=== PATIENT | female | born 1965 | race Caucasian/White ===

== ENCOUNTER 2016-09-12 14:06 | Inpatient (IN) ==
--- NOTE | 2016-09-12 14:32 | Emergency Department Note ---
Female Urogenital HPI - General Chief complaint: Urogenital-Female Stated complaint: uti, weakness Time Seen by Provider: 09/12/16 14:23 Source: patient Mode of arrival: ambulatory Limitations: no limitations - History of Present Illness HPI Narrative: This patient was seen earlier today by Dr. Peter for weakness altered mental status and diagnosed with a UTI. She was discharged on Cipro. Within several hours she was falling down and we can evident that she has not make it at home. She now returns to the emergency room by ambulance, she is quite morbidly obese and cannot manage her with her weight. - Related Data Home Medications Medication Instructions Recorded Confirmed cyclobenzaprine 10 mg tablet 10 mg PO TID 08/07/15 09/12/16 gabapentin 800 mg tablet 800 mg PO QID tab 08/07/15 09/12/16 hydrocodone 10 mg-acetaminophen 1 tab PO QID 08/07/15 09/12/16 325 mg tablet mirtazapine 15 mg tablet 15 mg PO QHS 08/07/15 09/12/16 celecoxib 200 mg capsule 200 mg PO BID 30 Days 10/02/15 09/12/16 duloxetine 60 mg capsule,delayed 60 mg PO BID cap 10/02/15 09/12/16 release hydrocortisone 5 mg tablet 10 mg PO .COMPLEX 01/08/16 09/12/16 morphine ER 30 mg tablet,extended 30 mg PO TID tab 04/22/16 09/12/16 release cholecalciferol (vitamin D3) 5,000 5,000 unit PO QDAY cap 07/08/16 09/12/16 unit capsule pyridoxine (vitamin B6) 100 mg 100 mg PO QDAY tab 07/08/16 09/12/16 tablet Previous Rx's Medication Instructions Recorded nystatin 100,000 unit/gram topical 1 applic TOPICAL TID PRN #120 each 01/01/16 powder metformin ER 500 mg 24 hr 500 mg PO QDAY #60 tab 03/16/16 tablet,extended release canagliflozin 100 mg tablet 100 mg PO QAM #60 tab 04/07/16 cefdinir 300 mg capsule 300 mg PO Q12H 14 Days 07/08/16 doxycycline hyclate 100 mg tablet 100 mg PO BID 14 Days 07/08/16 furosemide 40 mg tablet 40 mg PO QDAY #60 tab 07/08/16 potassium chloride ER 10 mEq 20 meq PO QDAY #120 cap 07/08/16 capsule,extended release valsartan 160 mg tablet 160 mg PO QDAY #60 tab 07/08/16 Ciprofloxacin [Cipro] 250 mg PO BID #20 tablet 09/12/16 Allergies Allergy/AdvReac Type Severity Reaction Status Date / Time Amoxicillin Allergy Severe Rash Verified 09/12/16 19:14 Review of Systems Constitutional: Denies: fever, chills Eyes: Denies: eye pain ENT ED: Denies: ear pain Cardiovascular: Denies: chest pain Respiratory: Reports: cough. Denies: dyspnea Gastrointestinal: Reports: abdominal pain. Denies: nausea, vomiting Genitourinary: Reports: urgency, dysuria, frequency Musculoskeletal: Denies: back pain Integumentary: Denies: rash Neurological: Denies: headache Past Medical History - Past Medical History Medical history: Reports: arthritis, diabetes, fibromyalgia, hypertension, migraine, osteoporosis, thyroid disease, other Surgical history ED: Reports: appendectomy, , cholecystectomy, knee replacement, tonsillectomy, other (resection of liver tumor) Psychiatric history: Reports: anxiety - Social History Alcohol use: Reports: None Physical Exam - General Limitations: no limitations General appearance: alert, in no apparent distress - Head Head exam: atraumatic, normocephalic - Eye Eye exam: Present: normal appearance - ENT ENT exam: normal exam - Neck Neck exam: Present: normal inspection - Chest Chest inspection: Present: normal inspection - Respiratory Respiratory exam: Present: normal lung sounds bilaterally - Cardiovascular Cardiovascular exam: Present: regular rate, normal rhythm, normal heart sounds - Abdominal Exam Abdominal exam: Present: soft, tenderness. Absent: distention, guarding, rebound, rigidity Abdominal tenderness: Present: diffuse, mild - Neurological Exam Neurological exam: Present: alert - Psychiatric Psychiatric exam: Present: normal affect, normal mood - Skin Skin exam: Present: warm, dry, intact Course Vital Signs Pulse Rate 94 H 09/12/16 14:17 Respiratory Rate 22 09/12/16 14:17 Blood Pressure 131/81 09/12/16 14:17 Pulse Oximetry (%) 98 09/12/16 14:17 Temperature 99 F 09/13/16 04:00 Pulse Rate 102 H 09/12/16 16:32 Respiratory Rate 22 09/13/16 04:00 Blood Pressure 133/81 09/13/16 04:00 Pulse Oximetry (%) 97 09/13/16 04:00 Urogenital-Female - MDM Narrative Medical decision making narrative: This patient had an abnormal lumbar puncture. She'll be admitted to the hospital and covered for meningitis. She noted chest x-ray and CT scan from earlier in the morning were negative. - Lab Data Lab results reviewed: Yes I reviewed the patient's lab results. Result diagrams: 09/13/16 00:01 09/13/16 00:01 Lab Results 09/12/16 09/12/16 09/12/16 Range/Units 15:04 15:04 15:04 ESR 95 H (0-20) mm/hr VBG Lactic Acid 1.5 (0.5-2.2) mmol/L C-Reactive Protein 35.6 H (0.0-0.8) mg/dl CSF Source CSF Appearance CSF Color CSF RBC (0-1) /cumm CSF Diff Total Count CSF Total Nucleated Auto (0-5) /cumm CSF Neutrophils (0-6) % CSF Lymphocytes (40-80) % CSF Reactive Lymphs CSF Monocytes (15-45) % CSF Eosinophils % CSF Basophils CSF Macrophages % CSF Plasma Cells CSF Diff Comment CSF Glucose (45-75) mg/dL CSF Total Protein (15.0-45) mg/dL 09/12/16 09/12/16 09/12/16 Range/Units 17:49 17:49 17:49 ESR (0-20) mm/hr VBG Lactic Acid (0.5-2.2) mmol/L C-Reactive Protein (0.0-0.8) mg/dl CSF Source Tube #3 TNP CSF Appearance Hazy Not Reportable CSF Color Xanthochromic Not Reportable CSF RBC 730 H Not Reportable (0-1) /cumm CSF Diff Total Count 100 Not Reportable CSF Total Nucleated Auto 148 H Not Reportable (0-5) /cumm CSF Neutrophils 68 H Not Reportable (0-6) % CSF Lymphocytes 16 L Not Reportable (40-80) % CSF Reactive Lymphs Not Reportable Not Reportable CSF Monocytes 15 Not Reportable (15-45) % CSF Eosinophils % Not Reportable Not Reportable CSF Basophils Not Reportable Not Reportable CSF Macrophages 1 Not Reportable % CSF Plasma Cells Not Reportable Not Reportable CSF Diff Comment Not Reportable Not Reportable CSF Glucose 97 H Not Reportable (45-75) mg/dL CSF Total Protein 933 H Not Reportable (15.0-45) mg/dL Disposition Clinical Impression: Urinary tract infection, Meningitis Disposition: Xfer As Inpt ([facility]) Condition: Undetermined
[2016-09-12] MEDS: HYDROmorphone 2 MG/ML SYRINGE IV PRN ×2 (16:00→16:49)
[2016-09-12] MEDS ORDERED: VANCOMYCIN 1,000 MG in 0.9 % SODIUM CHLORIDE 250 ML IV ONE (16:07)
[2016-09-12] MEDS ORDERED: LEVOFLOXACIN 500 MG/100 ML BAG IV ONE (16:07)
[2016-09-12] MEDS ORDERED: 0.9 % SODIUM CHLORIDE 1,000 ML IV SCH (16:15)
[2016-09-12] MEDS: 0.9 % SODIUM CHLORIDE 1,000 ML IV SCH (18:00)
[2016-09-12] MEDS ORDERED: DEXAMETHASONE 4 MG/ML VIAL IV ONE (18:01)
[2016-09-12] MEDS ORDERED: ONDANSETRON 4 MG/2 ML VIAL IV PRN (18:01)
[2016-09-12] MEDS ORDERED: VANCOMYCIN PER PHARMACY IV SCH (18:01)
[2016-09-12] MEDS ORDERED: POTASSIUM CHLORIDE 20 MEQ PACKET PO PRN (18:01)
[2016-09-12] MEDS ORDERED: MAGNESIUM SULFATE 2 GM/50 ML BAG IV PRN (18:01)
[2016-09-12] MEDS ORDERED: NYSTATIN POWDER BOTTLE 15GM TOPICAL PRN (18:01)
[2016-09-12] MEDS ORDERED: ACETAMINOPHEN 325 MG TABLET PO PRN (18:01)
[2016-09-12] MEDS ORDERED: AMPICILLIN SODIUM 2 GM VIAL IV SCH (18:01)
[2016-09-12] MEDS ORDERED: ACETAMINOPHEN 1,000 MG/100 ML BOTTLE IV PRN (18:01)
[2016-09-12] MEDS ORDERED: DEXTROSE 50% 50 ML VIAL IV PRN (18:01)
--- NOTE | 2016-09-12 18:19 | XRay Report ---
CLINICAL INFORMATION: Confusion. Possible encephalitis. TECHNIQUE: Informed consent was obtained. Routine Betadine skin cleansing. 1% lidocaine injected subcutaneously and deep. An 18-gauge, 6 inch spinal needle utilized. Lumbar puncture performed at the L1-L2 level. 5 mL yellowish fluid was removed. No immediate complications. IMPRESSION: 1. Lumbar puncture performed at the L1-L2 level 2. 5 mL of yellow-tinged fluid removed. Interpreted and Authenticated by: Farshad Lu 09/12/16
[2016-09-12 19:15] LABS: Glucose,CSF 97 mg/dL (45-75)
[2016-09-12] MEDS ORDERED: VANCOMYCIN 2,000 MG in 0.9 % SODIUM CHLORIDE 500 ML IV ONE (20:00)
[2016-09-12] MEDS ORDERED: VANCOMYCIN 500 MG VIAL ONE (20:18)
[2016-09-12] MEDS: INSULIN LISPRO 1 UNIT/0.01 ML UNIT SQ SCH ×2 (20:32→22:10)
[2016-09-12] MEDS: DOCUSATE SODIUM 100 MG CAPSULE PO SCH (20:34)
[2016-09-12] MEDS: SENNOSIDES/DOCUSATE SODIUM 1 TAB TABLET PO SCH (20:34)
[2016-09-12] MEDS: DULoxetine 30 MG CAPSULE PO SCH (20:34)
[2016-09-12] MEDS: MIRTAZAPINE 15 MG TABLET PO SCH (20:35)
[2016-09-12] MEDS: morphine 30 MG TAB.SR.12H PO SCH (20:35)
[2016-09-12] MEDS: 0.9 % SODIUM CHLORIDE 10 ML SYRINGE IV SCH (20:35)
[2016-09-12 20:57] LABS: Lymphocytes,CSF 16 % (40-80); Monocytes,CSF 15 % (15-45); Neutrophils,CSF 68 % (0-6); Total Cell Ct,CSF 100
[2016-09-12 21:03] LABS: Appearance,CSF HAZY; Nucleated Cells,CSF 148 /cumm (0-5); Red Blood Cell,CSF 730 /cumm (0-1)
[2016-09-12] MEDS: ACYCLOVIR SODIUM 800 MG in 0.9 % SODIUM CHLORIDE 150 ML IV SCH (21:05)
[2016-09-12] MEDS: cefTRIAXone 2 GM in DEXTROSE 5% IN WATER 50 ML IV SCH (21:30)
[2016-09-12] MEDS ORDERED: ACYCLOVIR SODIUM 500 MG VIAL IV SCH (22:00)
[2016-09-12] MEDS: AMPICILLIN SODIUM 2 GM in 0.9 % SODIUM CHLORIDE 100 ML IV SCH (22:30)
--- NOTE | 2016-09-12 23:28 | History and Physical Report ---
DATE OF ADMISSION: 09/12/2016 DATE OF ADMISSION: 09/12/2016 REASON FOR ADMISSION: Mental status change, weakness, confusion. HISTORY OF CHIEF COMPLAINT: Amber is a 51-year-old who comes to [facility] ER for the second time in 24 hours with significant weakness, headache, neck pain and low grade fever. The patient also has associated urinary frequency; however, she endorses to feeling weak and progressive lethargy and myalgias over the last couple of weeks. She is, however, on multiple sedatives, anxiolytics and neuropathic medications along with opioids that may have predisposed her to her symptoms. Initial workup in the ER was significant for white count of 17,000, along with mild UTI. The patient was subsequently discharged with ciprofloxacin. Shortly thereafter, the patient comes back to the ER with increasing confusion, weakness, fever. Hospitalist Service was consulted for further evaluation. At the time of examination, the patient is accompanied by her . She was able to provide some of the history. She is intermittently confused, but oriented to person and place. She denies diarrhea or dysuria. Does endorse to mild photophobia. Denies nausea, vomiting. She does have a generalized headache that is worse since last 24 hours. She denies back pain, joint pain or rash. REVIEW OF SYSTEMS: Ten-point review of system was performed and negative except the ones discussed above. PAST MEDICAL HISTORY: 1. Anxiety disorder. 2. Chronic degenerative joint disease along with pain. 3. Neuropathy. 4. Diabetes mellitus type 2. 5. Morbid obesity. 6. Hypertension. CURRENT MEDICATIONS: Cipro 250. Losartan 160. Furosemide 40. Cefdinir 300. Canagliflozin 100. Metformin 500. Nystatin for local application. Loxitane 100. Liraglutide 1.8 subcutaneous daily. Morphine 30 three times a day. Hydrocortisone 10 daily. Duloxetine 60 twice daily. Mirtazapine 15 at bedtime Hydrocodone 10/325 one tab 4 times a day. Gabapentin 800 three times a day. Cyclobenzaprine 10 three times a day. ALLERGIES: Noted to AMOXICILLIN. SOCIAL HISTORY: The patient is . No history of smoking or alcoholism. Morbidly obese. Her primary care physician: Robson Day MD FAMILY HISTORY: Significant for diabetes, hypertension and CVA in mother. Hypertension and dementia in father. Cousin, myocardial infarction. PHYSICAL EXAMINATION: GENERAL EXAM: The patient is morbidly obese with BMI of 55, nondistressed, but confused. VITAL SIGNS: Blood pressure is 136/116, respiratory rate 16, temperature 100.7, pulse 102. Saturations 100 percent on room air. HEENT: Pupils symmetric. Oral cavity dry. No ear or nose discharge. Head: Normocephalic and atraumatic. NECK: Stiffness. Positive along with Kernig's sign. No jugular venous distention. CHEST: S1, S2 regular rhythm, tachycardia. ESM grade 1. Diminished breath sounds at bases. ABDOMEN: Soft, nontender. Pendulous, extensive pannus. LOWER EXTREMITY EXAMINATION: Stasis changes along with minimal lymphedema, but no cyanosis or clubbing. No joint swelling. SKIN: No suspicious lesions. PSYCHIATRIC: Intermittently confused but no agitation or hallucination. NEURO: Nonfocal, moving all four extremities except for higher functions altered. LABS AND IMAGING: White count 17.1, hemoglobin 13.5, platelets 437, neutrophils 80 percent. Lactic acid 1.5. Sodium 130, potassium 3.7, creatinine 1.9, BUN 35. CRP 35. LFTs unremarkable. UA: 10 WBCs along with a few bacteria. Culture is pending. CSF: Total cells 148 and neutrophils 68 percent Cultures pending. HSV DNA pending. Proteins 933. Glucose 97. ASSESSMENT AND PLAN: A 51-year-old admitted with acute mental status change along with pyogenic meningitis. 1. Acute bacterial meningitis with mental status change and ikely encephalitis. Start the patient on empiric vancomycin, Rocephin, dexamethasone, and ampicillin until cultures are obtained. The patient is a high risk mortality with cerebrospinal fluid finding consistent with bacterial meningitis. Admit to inpatient telemetry for close monitoring and neuro checks. 2. Sepsis secondary to above. Continue antibiotic coverage. 3. Acute renal failure, secondary to sepsis. Continue monitoring. Continue crystalloids and consult Nephrology if deteriorating. 4. Other prior medical issues, including diabetes mellitus type 2. Continue basal prandial insulin. 5. Hypertension. Hold angiotensin receptor bhavin until systolics over 140. 6. Chronic pain. Continue as needed morphine at home dose. 7. Anxiety disorder. Continue on loxitane. 8. Neuropathy. Continue gabapentin. Overall very high complexity admit on this patient with acute bacterial meningitis with encephalitis. AA:aquilino Job ID: [id number] Doc ID: [id number] Lonnie ESCUDERO
[2016-09-13 00:52] LABS: Mean Cell Volume 83.9 fL (80.0-100.0); Mean Corpuscular HGB Conc 32.7 g/dL (31.0-36.0); Mean Corpuscular Hemoglobin 27.4 pg (26.0-34.0); Platelet Count 397 K/mcL (140-440); RBC 4.53 M/mcL (4.00-5.20); Red Cell Distribution Width 16.5 % (11.5-14.5)
[2016-09-13 01:08] LABS: ALT/SGPT 43 U/l (0-40); Albumin 3.4 gm/dL (3.2-5.2); Albumin/Globulin Ratio 0.9 (1.0-2.3); Alkaline Phosphatase 114 U/L (39-117); Bilirubin,Direct 0.3 mg/dL (0.0-0.3); Blood Urea Nitrogen 17 mg/dl (6-20); Gamma Glutamyl Transpeptidase 208 U/L (5-36); Magnesium 2.4 mg/dL (1.6-2.5); Uric Acid 7.2 mg/dL (2.5-8.0)
[2016-09-13 01:44] LABS: Anisocytosis 1+ (NONE SEEN); Band Neutrophils % 5 % (0-10); Lymphocytes % 8 % (15-49); Monocytes % (Manual) 8 % (1-12); Platelet Estimate NORMAL (NORMAL); RBC Morphology ABNORM (NORMAL); Segmented Neutrophils % 79 % (38-78)
[2016-09-13] MEDS: 0.9 % SODIUM CHLORIDE 1,000 ML IV SCH ×3 (02:27→17:40)
[2016-09-13] MEDS: AMPICILLIN SODIUM 2 GM in 0.9 % SODIUM CHLORIDE 100 ML IV SCH ×5 (02:28→21:23)
[2016-09-13] MEDS: ACYCLOVIR SODIUM 800 MG in 0.9 % SODIUM CHLORIDE 150 ML IV SCH ×3 (05:00→22:12)
[2016-09-13] MEDS: 0.9 % SODIUM CHLORIDE 10 ML SYRINGE IV SCH ×3 (07:10→21:22)
[2016-09-13] MEDS: INSULIN LISPRO 1 UNIT/0.01 ML UNIT SQ SCH ×5 (08:39→21:22)
[2016-09-13] MEDS: morphine 30 MG TAB.SR.12H PO SCH ×2 (08:58→20:38)
[2016-09-13] MEDS: MULTIVIT,THER IRON,CA,FA & MIN 1 TABLET PO SCH (08:58)
[2016-09-13] MEDS: DOCUSATE SODIUM 100 MG CAPSULE PO SCH ×2 (08:58→21:23)
[2016-09-13] MEDS: LOSARTAN 50 MG TABLET PO SCH (08:58)
[2016-09-13] MEDS: DULoxetine 30 MG CAPSULE PO SCH ×2 (08:58→20:37)
[2016-09-13] MEDS: POTASSIUM CHLORIDE 20 MEQ TABLET PO SCH (08:59)
[2016-09-13] MEDS ORDERED: THIAMINE 100 MG in 0.9 % SODIUM CHLORIDE 50 ML IV SCH (09:00)
[2016-09-13] MEDS: VANCOMYCIN 1,500 MG in 0.9 % SODIUM CHLORIDE 500 ML IV SCH ×2 (09:00→21:22)
[2016-09-13] MEDS: HYDROCORTISONE 10 MG TABLET PO SCH (09:05)
--- NOTE | 2016-09-13 10:54 | Internal Med Progress Note ---
Medical - PN: Subj Patient information: Note initiated : 09/13/16 at 10:49 am Service Date, if different from initiated Date: [] Patient: Amber Weiss 51 y/o F admitted on 09/12/16 for Mental Status Change , Pyogenic Meningitis. Chief Complaint: [] Interval history: 09/12- patient admitted with mental status changes photophobia headache and fever progressing over the last few days. She has been intermittently treated for no S3 cellulitis with Ceftin ear since March. However she clinically deteriorated with active hallucinations and confusion prompting her to be evaluated to [facility] ER. initial workup was significant for white count at 17, 000. She was diagnosed with UTI and discharged but shortly thereafter returned with worsening mental status change. CSF studies revealed 148 WBCs with neutrophil predominance and 933 protein clearly service to above bacterial meningitis/encephalitis. Started on Rocephin/ampicillin/vancomycin/acyclovir. Neuro imaging to rule out brain abscess. At this time will empirically start her on anaerobic coverage with Flagyl until neuroimaging to be performed. 09/13- patient clinically better with resolution of hallucination and back to baseline. More lucid and alert. at bedside. Case discussed with family. MRI not amenable due to patient's body habitus. We'll perform CT contrast head to rule out brain abscess/ hemorrhage. De-escalate antibiotics based on Gram stain. So far negative. continue empiric treatment. - Constitutional Vitals: Vital Signs Temp Pulse Resp BP Pulse Ox 96.7 F L 86 18 134/86 97 09/13/16 10:02 09/13/16 08:00 09/13/16 08:00 09/13/16 08:00 09/13/16 08:00 Period Temp Pulse Resp BP Sys/Schultz Pulse Ox Last 24 Hr 96.7 F-100.7 F 86 18-96 111-156/61-119 92-100 Intake and Output 09/12/16 09/13/16 09/13/16 21:59 05:59 13:59 Intake Total 554 / 554 2296 / 2296 200 / 200 Output Total 3400 / 3400 Balance 554 / -1046 -1104 / -1104 200 / 200 Weight 357 lb 11 oz Intake & Output: Intake & Output 09/12/16 09/13/16 09/13/16 21:59 05:59 13:59 Intake Total 554 / 554 2296 / 2296 200 / 200 Output Total 3400 / 3400 Balance 554 / -1046 -1104 / -1104 200 / 200 Weight 357 lb 11 oz Intake: IV 554 / 554 2046 / 2046 200 / 200 Sodium Chloride 0.9% 1, 354 / 354 1646 / 1646 000 ml @ Wide Open IV [facility] Rx#:[id number] Zovirax 800 mg In Sodium 150 / 150 100 / 100 Chloride 0.9% 150 ml @ 100 mls/hr IV Q8H [facility] Rx# :[id number] Ampicillin 2 gm In Sodium 200 / 200 100 / 100 Chloride 0.9% 100 ml @ 100 mls/hr IV Q4H [facility] Rx# :[id number] Rocephin 2 gm In Dextrose 50 / 50 5% in Water 50 ml @ 100 mls/hr IV DAILY [facility] Rx#: [id number] Oral 250 / 250 Output: Urine Catheter Amount 3400 / 3400 General appearance: cooperative, no acute distress Exam: morbidly obese alert oriented nonlabored breathing Improved photophobia No anxiety Medical - PN: Obj Da - Labs CBC & Chem 7: 09/13/16 00:01 09/13/16 00:01 Labs: Abnormal Lab Results 09/13/16 09/13/16 00:01 00:01 WBC 15.5 H RDW 16.5 H Seg Neutrophils % 79 H Lymphocytes % 8 L RBC Morphology Abnorm A Anisocytosis 1+ A Chloride 95 L Glucose 174 H GGT 208 H AST 43 H ALT 43 H Lactate Dehydrogenase 276 H Globulin 3.9 H Albumin/Globulin Ratio 0.9 L Meds: Medications Acetaminophen (Tylenol) 650 mg PO Q4-6HP PRN PRN Reason: PAIN/FEVER > 101 Last Admin: 09/13/16 04:59 Dose: 650 mg Dextrose (Dextrose 50%) 0 ml IV UD PRN PRN Reason: Hypoglycemia Diagnostic Test (Pha) (Accu-Chek) 1 each FS ACHS [facility] Last Admin: 09/13/16 07:58 Dose: 1 each Docusate Sodium (Colace) 100 mg PO BID [facility] Last Admin: 09/13/16 08:58 Dose: 100 mg Duloxetine HCl (Cymbalta) 60 mg PO BID [facility] Last Admin: 09/13/16 08:58 Dose: 60 mg Hydrocortisone (Cortef) 10 mg PO QAMCC [facility] Last Admin: 09/13/16 09:05 Dose: 10 mg [facility] (C[facility]ef) [facility] Magnesium Sulfate (Magnesium Sulfate) 2 gm in 50 mls @ 50 mls/hr IV UD PRN PRN Reason: MG = or < 1.7 Sodium Chloride (Sodium Chloride 0.9%) 1,000 mls @ 50 mls/hr IV .Q20H [facility] Stop: 09/15/16 06:00 Last Admin: 09/13/16 02:27 Dose: 50 mls/hr Sodium Chloride (Sodium Chloride 0.9%) 1,000 mls @ 0 mls/hr IV BOLUS [facility] PRN Reason: Wide Open Last Infusion: 09/13/16 02:26 Dose: Infused Acetaminophen (Ofirmev) 1,000 mg in 100 mls @ 200 mls/hr IV Q6HP PRN PRN Reason: PAIN/FEVER > 101 Last Infusion: 09/12/16 21:56 Dose: Infused Thiamine HCl 100 mg/ Sodium (Chloride) 51 mls @ 50 mls/hr IV DAILY [facility] Stop: 09/15/16 10:02 Last Admin: 09/13/16 09:01 Dose: 50 mls/hr Ceftriaxone Sodium 2 gm/ (Dextrose) 50 mls @ 100 mls/hr IV DAILY [facility] Last Infusion: 09/12/16 23:48 Dose: Infused Acyclovir Sodium 800 mg/ (Sodium Chloride) 150 mls @ 100 mls/hr IV Q8H [facility] Last Infusion: 09/13/16 06:00 Dose: 0 mls/hr Ampicillin Sodium 2 gm/ Sodium (Chloride) 100 mls @ 100 mls/hr IV Q4H [facility] Last Infusion: 09/13/16 08:07 Dose: Infused Vancomycin HCl 1,500 mg/ (Sodium Chloride) 500 mls @ 333.3 mls/hr IV Q12H [facility] Last Admin: 09/13/16 09:00 Dose: 333.3 mls/hr Insulin Human Lispro (Humalog) 0 unit SQ ACHS [facility] PRN Reason: Protocol Last Admin: 09/13/16 08:39 Dose: Not Given Iron Carb/Multivit/[place]/Folic Acid (Multivitamin W/Minerals) 1 tab PO DAILY [facility] Last Admin: 05/15/17 08:58 Dose: 1 tab Losartan Potassium (Cozaar) 100 mg PO DAILY [facility] Last Admin: 09/13/16 08:58 Dose: 100 mg Mirtazapine (Remeron) 15 mg PO QHS [facility] Last Admin: 09/12/16 20:35 Dose: 15 mg Morphine Sulfate (Ms Contin) 30 mg PO BID [facility] Last Admin: 09/13/16 08:58 Dose: 30 mg Nystatin (Kenalog) 1 dose TOPICAL TIDP PRN PRN Reason: candidiasis Ondansetron HCl (Zofran) 4 mg IV Q4-6HP PRN PRN Reason: Nausea And Vomiting Canagliflozin [ Invokana] 100 Mg Tablet 1 dose PO QAM [facility] Last Admin: 09/13/16 09:22 Dose: 1 dose Potassium Chloride (Klor-Con) 40 meq PO DAILYP PRN PRN Reason: K+ < 3.5 Potassium Chloride (Kdur) 20 meq PO QAMCC [facility] Last Admin: 09/13/16 08:59 Dose: 20 meq Senna/Docusate Sodium (Senna Plus Tablet) 1 tab PO HS [facility] Last Admin: 09/12/16 20:34 Dose: 1 tab Sodium Chloride (Saline Flush) 10 ml IV Q8 [facility] Last Admin: 09/13/16 07:10 Dose: Not Given Vancomycin HCl (Vancomycin Per Pharmacy) 1 order IV UD [facility] Medical - PN: A/P - Time Spent With Patient Total time spent is greater than 50% in coordination of care (as documented) at patient's floor/unit and/or counseling patient: 25 - 35 minutes (1) Acute bacterial meningitis Status: Acute Assessment and plan: * Acute bacterial meningitis with likely encephalitis-continue broad antibiotic coverage. PICC line placement for minimum 14 days antibiotics. Start Flagyl for anaerobic coverage in light of mental status change and encephalitis symptoms. await CT contrast had * Severe sepsis secondary to above-on antibiotic coverage * lower extremity cellulitis-Continue antibiotic coverage, wound care consult * DM type II basal prandial insulin * Chronic pain on morphine/Hydrocodone * anxiety disorder mirtazapine/ duloxetine * neuropathy restart gabapentin\ * full code status Plan * continue antibiotic coverage, add Flagyl for anaerobic coverage * closing management monitoring * CT Headwith contrast * wound care consult * pre-existing medical condition management as above Current Visit: Yes Medical - PN: Qual - Stroke Symptom Onset Unknown: No - VTE Deep Vein Thrombosis/Pulmonary Embolism Present on Admission: No
[2016-09-13] MEDS ORDERED: 0.9 % SODIUM CHLORIDE 10 ML SYRINGE IV PRN (10:55)
[2016-09-13] MEDS: metroNIDAZOLE 500 MG/100 ML BAG IV SCH ×2 (11:12→17:28)
[2016-09-13] MEDS: HYDROcodone/APAP 10/325MG TABLET PO PRN ×3 (11:12→22:21)
[2016-09-13] MEDS ORDERED: IOPAMIDOL 100 ML BOTTLE IV ONE (11:58)
--- NOTE | 2016-09-13 12:07 | Cat Scan Report ---
CLINICAL INFORMATION: Meningitis TECHNIQUE: Axial images through the brain. 60 mL contrast material injected. COMPARISON: Noncontrast enhanced brain CT scan dated 09/12/2016 FINDINGS: Previous occipital craniotomy. No acute intracranial hemorrhage. No intra-axial enhancing lesions. No focal intra-axial attenuation abnormality. No localized mass effect. No hydrocephalus. Brainstem and cerebellum are negative. No pathologic dural or leptomeningeal enhancement identified. Basilar cisterns are normal. No calvarial lesions. Paranasal sinuses are negative. Mastoid air cells are negative. Middle ears are clear. IMPRESSION: Previous occipital craniotomy. Otherwise negative postcontrast enhanced brain CT scan Interpreted and Authenticated by: Farshad Lu 09/13/16
[2016-09-13] MEDS: cefTRIAXone 2 GM in DEXTROSE 5% IN WATER 50 ML IV SCH (14:26)
[2016-09-13] MEDS ORDERED: HYDROCORTISONE 10 MG TABLET PO SCH (17:30)
--- NOTE | 2016-09-13 20:28 | General Surgery Consult Note ---
[id number] Date: [] Patient: Amber Weiss 51 y/o F admitted on 09/12/16 for Mental Status Change , Pyogenic Meningitis. Chief Complaint: [] Consult date: 09/13/16 (WOUND CARE CONSULT, ) Requesting physician: Lonnie Mojica History of present illness: 09/13/2016 Patient is established at the wound center for treatment of Right foot 2 nd toe tip neuropathic ulcer. She is currently admitted to ICU for treatment of complex UTI with possible bacterial meningitis and altered mental status. I reviewed her EHR chart notes, discussed her progress with nursing staff and examined her in the presence of nurse in ICU. Medications and Allergies Home Medications Medication Instructions Recorded Confirmed Type cyclobenzaprine 10 mg tablet 10 mg PO TID 08/07/15 09/12/16 History gabapentin 800 mg tablet 800 mg PO QID tab 08/07/15 09/12/16 History hydrocodone 10 mg-acetaminophen 1 tab PO QID 08/07/15 09/12/16 History 325 mg tablet mirtazapine 15 mg tablet 15 mg PO QHS 08/07/15 09/12/16 History celecoxib 200 mg capsule 200 mg PO BID 30 Days 10/02/15 09/12/16 History duloxetine 60 mg capsule,delayed 60 mg PO BID cap 10/02/15 09/12/16 History release nystatin 100,000 unit/gram topical 1 applic TOPICAL TID PRN #120 each 01/01/16 09/12/16 Rx powder hydrocortisone 5 mg tablet 10 mg PO .COMPLEX 01/08/16 09/12/16 History metformin ER 500 mg 24 hr 500 mg PO QDAY #60 tab 03/16/16 09/12/16 Rx tablet,extended release canagliflozin 100 mg tablet 100 mg PO QAM #60 tab 04/07/16 09/12/16 Rx morphine ER 30 mg tablet,extended 30 mg PO TID tab 04/22/16 09/12/16 History release cefdinir 300 mg capsule 300 mg PO Q12H 14 Days 07/08/16 09/12/16 Rx cholecalciferol (vitamin D3) 5,000 5,000 unit PO QDAY cap 07/08/16 09/12/16 History unit capsule doxycycline hyclate 100 mg tablet 100 mg PO BID 14 Days 07/08/16 09/12/16 Rx furosemide 40 mg tablet 40 mg PO QDAY #60 tab 07/08/16 09/12/16 Rx potassium chloride ER 10 mEq 20 meq PO QDAY #120 cap 07/08/16 09/12/16 Rx capsule,extended release pyridoxine (vitamin B6) 100 mg 100 mg PO QDAY tab 07/08/16 09/12/16 History tablet valsartan 160 mg tablet 160 mg PO QDAY #60 tab 07/08/16 09/12/16 Rx Ciprofloxacin [Cipro] 250 mg PO BID #20 tablet 09/12/16 09/12/16 Rx Allergies Allergy/AdvReac Type Severity Reaction Status Date / Time Amoxicillin Allergy Severe Rash Verified 09/12/16 19:14 Exam Temp Pulse Resp BP Pulse Ox 97.6 F 96 H 18 140/76 99 09/13/16 12:14 09/13/16 16:01 09/13/16 08:00 09/13/16 16:01 09/13/16 18:00 - General physical appearance no distress, other (Morbid obesity) - Eyes PERRL, normal ocular movement - ENT normal pinna, normal nares, normal mucosa, no congestion - Head Head exam IM: Present: atraumatic, normal inspection, normocephalic - Neck no masses, no bruits, trachea midline, no venous distension - Cardiovascular Cardiovascular exam IM: Present: normal rate and rhythm - Respiratory normal expansion, clear to auscultation - Abdomen Abdomen: Present: soft, non tender, bowel sounds - Genitourinary Present: other (Quiles catheter draining clear urine. Extensive fungal dermatitis under the panniculus, perineal area and under skin folds.) - Integumentary Present: other (Fungal dermatitis under skin folds of breast, axillae, gluteal area and around lower legs.. ) - Neurologic Present: normal coordination, normal sensation, other (AAO x 3. Lucid and coherent. BROWN. Non focal and Non lateralizing neurological examination. ) - Musculoskeletal Present: other (Right foot neuropathic ulcer at the tip of third toe, This is chronic and crusted, non stageable at this time. NEEDS off laoading and protective dressing . TO BE followed. ) - Psychiatric Present: oriented to time, oriented to person, oriented to place, speech is normal, memory intact (Unremarkable and normalassessment. BASE LINE. ) Results - Labs 09/14/16 04:00 09/14/16 04:00 Abnormal lab results 09/13/16 09/13/16 Range/Units 00:01 00:01 WBC 15.5 H (4.5-11.0) K/mcL RDW 16.5 H (11.5-14.5) % Seg Neutrophils % 79 H (38-78) % Lymphocytes % 8 L (15-49) % RBC Morphology Abnorm A (NORMAL) Anisocytosis 1+ A (NONE SEEN) Chloride 95 L (96-108) mmol/L Glucose 174 H (70-105) mg/dL GGT 208 H (5-36) U/L AST 43 H (0-37) U/l ALT 43 H (0-40) U/l Lactate Dehydrogenase 276 H (94-250) U/L Globulin 3.9 H (2.2-3.7) gm/dL Albumin/Globulin Ratio 0.9 L (1.0-2.3) Diabetes panel 09/13/16 Range/Units 00:01 Sodium 134 (133-145) mmol/L Potassium 4.1 (3.3-5.1) mmol/L Chloride 95 L (96-108) mmol/L Carbon Dioxide 24 (22-30) mmol/L BUN 17 (6-20) mg/dl Creatinine 0.9 (0.6-1.1) mg/dl Glucose 174 H (70-105) mg/dL Calcium 9.5 (8.6-10.4) mg/dl AST 43 H (0-37) U/l ALT 43 H (0-40) U/l Alkaline Phosphatase 114 (39-117) U/L Total Protein 7.3 (5.9-8.4) gm/dL Albumin 3.4 (3.2-5.2) gm/dL Triglycerides 113 (<150) mg/dl Calcium panel 09/13/16 Range/Units 00:01 Calcium 9.5 (8.6-10.4) mg/dl Phosphorus 3.5 (2.7-4.5) mg/dL Albumin 3.4 (3.2-5.2) gm/dL Pituitary panel 09/13/16 Range/Units 00:01 Sodium 134 (133-145) mmol/L Potassium 4.1 (3.3-5.1) mmol/L Chloride 95 L (96-108) mmol/L Carbon Dioxide 24 (22-30) mmol/L BUN 17 (6-20) mg/dl Creatinine 0.9 (0.6-1.1) mg/dl Glucose 174 H (70-105) mg/dL Calcium 9.5 (8.6-10.4) mg/dl Adrenal panel 09/13/16 Range/Units 00:01 Sodium 134 (133-145) mmol/L Potassium 4.1 (3.3-5.1) mmol/L Chloride 95 L (96-108) mmol/L Carbon Dioxide 24 (22-30) mmol/L BUN 17 (6-20) mg/dl Creatinine 0.9 (0.6-1.1) mg/dl Glucose 174 H (70-105) mg/dL Calcium 9.5 (8.6-10.4) mg/dl Total Bilirubin 0.6 (0.0-1.0) mg/dL AST 43 H (0-37) U/l ALT 43 H (0-40) U/l Alkaline Phosphatase 114 (39-117) U/L Total Protein 7.3 (5.9-8.4) gm/dL Albumin 3.4 (3.2-5.2) gm/dL All other labs normal. Assessment and Plan (1) Dermatitis of vulva Chronic fungal dermatitis. Onychogryposis, Diabetes Mellitus, Morbid obesity. PLAN: Local skin and skin fold hygiene. Attention to skin and nails. Use topical antifungal creme. Daily cleansing of skin under skin folds with Chlorhexidine solution and wash cloth. INTERDRY dressing under skin folds of panniculus and groins and under breasts. Status: Chronic Priority: Low (2) Dermatitis associated with moisture Status: Chronic Priority: Low (3) 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 Status: Chronic Priority: Low Comment: Protection dressings and off loading.
[2016-09-13] MEDS: MIRTAZAPINE 15 MG TABLET PO SCH (20:38)
[2016-09-13] MEDS: SENNOSIDES/DOCUSATE SODIUM 1 TAB TABLET PO SCH (20:52)
[2016-09-13] MEDS: CYCLOBENZAPRINE 10 MG TABLET PO SCH (21:29)
[2016-09-14] MEDS: metroNIDAZOLE 500 MG/100 ML BAG IV SCH ×2 (00:15→04:55)
[2016-09-14] MEDS: AMPICILLIN SODIUM 2 GM in 0.9 % SODIUM CHLORIDE 100 ML IV SCH ×3 (01:24→09:19)
[2016-09-14] MEDS: ACYCLOVIR SODIUM 800 MG in 0.9 % SODIUM CHLORIDE 150 ML IV SCH ×2 (04:49→14:00)
[2016-09-14 06:24] LABS: Mean Cell Volume 84.3 fL (80.0-100.0); Mean Corpuscular HGB Conc 32.5 g/dL (31.0-36.0); Mean Corpuscular Hemoglobin 27.4 pg (26.0-34.0); Platelet Count 455 K/mcL (140-440); Red Cell Distribution Width 16.8 % (11.5-14.5)
[2016-09-14] MEDS: HYDROcodone/APAP 10/325MG TABLET PO PRN ×2 (07:00→12:45)
[2016-09-14] MEDS: 0.9 % SODIUM CHLORIDE 10 ML SYRINGE IV SCH ×2 (07:03→12:10)
--- NOTE | 2016-09-14 07:10 | XRay Report ---
CLINICAL INFORMATION: Meningitis TECHNIQUE: Upright AP portable chest x-ray COMPARISON: 09/12/2016 FINDINGS: No acute or focal pulmonary parenchymal infiltrate. No parenchymal mass. No evidence for congestive heart failure. No significant interval change IMPRESSION: No acute abnormality Interpreted and Authenticated by: Farshad Lu 09/14/16
[2016-09-14 07:20] LABS: ALT/SGPT 34 U/l (0-40); Albumin 3.3 gm/dL (3.2-5.2); Albumin/Globulin Ratio 0.9 (1.0-2.3); Alkaline Phosphatase 123 U/L (39-117); Bilirubin,Direct < 0.2 mg/dL (0.0-0.3); Blood Urea Nitrogen 15 mg/dl (6-20); Gamma Glutamyl Transpeptidase 192 U/L (5-36); Magnesium 2.3 mg/dL (1.6-2.5); Uric Acid 4.2 mg/dL (2.5-8.0)
[2016-09-14 08:39] LABS: Anisocytosis 1+ (NONE SEEN); Band Neutrophils % 6 % (0-10); Lymphocytes % 12 % (15-49); Monocytes % (Manual) 4 % (1-12); Myelocytes % 1 % (0-0); Platelet Estimate INCREASED (NORMAL); RBC Morphology ABNORM (NORMAL); Segmented Neutrophils % 77 % (38-78)
[2016-09-14] MEDS ORDERED: ZOLPIDEM 10 MG TABLET PO PRN (09:07)
[2016-09-14] MEDS: INSULIN LISPRO 1 UNIT/0.01 ML UNIT SQ SCH ×2 (09:19→12:52)
[2016-09-14] MEDS: LOSARTAN 50 MG TABLET PO SCH (09:19)
[2016-09-14] MEDS: POTASSIUM CHLORIDE 20 MEQ TABLET PO SCH (09:20)
[2016-09-14] MEDS: MULTIVIT,THER IRON,CA,FA & MIN 1 TABLET PO SCH (09:20)
[2016-09-14] MEDS: DOCUSATE SODIUM 100 MG CAPSULE PO SCH (09:20)
[2016-09-14] MEDS: GABAPENTIN 100 MG CAPSULE PO SCH ×2 (09:20→12:45)
[2016-09-14] MEDS: CYCLOBENZAPRINE 10 MG TABLET PO SCH ×2 (09:38→13:45)
[2016-09-14] MEDS: HYDROCORTISONE 10 MG TABLET PO SCH (09:39)
[2016-09-14] MEDS: morphine 30 MG TAB.SR.12H PO SCH (09:39)
[2016-09-14] MEDS: DULoxetine 30 MG CAPSULE PO SCH (09:39)
[2016-09-14] MEDS ORDERED: cefTRIAXone 2 GM in DEXTROSE 5% IN WATER 50 ML IV SCH (10:00)
[2016-09-14] MEDS ORDERED: FUROSEMIDE 40 MG/4 ML VIAL IV ONE (10:26)
[2016-09-14] MEDS ORDERED: MAGNESIUM HYDROXIDE 30 ML ORAL.SUSP PO ONE (10:26)
--- NOTE | 2016-09-14 10:29 | Internal Med Progress Note ---
Medical - PN: Subj Patient information: Note initiated : 09/14/16 at 10:22 am Service Date, if different from initiated Date: [] Patient: Amber Weiss 51 y/o F admitted on 09/12/16 for Mental Status Change , Pyogenic Meningitis. Chief Complaint: [] Interval history: 09/12- patient admitted with mental status changes photophobia headache and fever progressing over the last few days. She has been intermittently treated for lower extremity cellulitis with Cedinir/levaquin since March. However she clinically deteriorated with active hallucinations and confusion prompting her to be evaluated to [facility] ER. initial workup was significant for white count at 17,000. She was diagnosed with UTI and discharged but shortly thereafter returned with worsening mental status change. CSF studies revealed 148 WBCs with neutrophil predominance and 933 protein clearly suggestive of bacterial meningitis/encephalitis. Started on Rocephin/dexamethasone/ampicillin /vancomycin/acyclovir. Neuro imaging to rule out brain abscess. At this time will empirically start her on anaerobic coverage with Flagyl until neuroimaging to be performed. 09/13- patient clinically better with resolution of hallucination and back to baseline. More lucid and alert. at bedside. Case discussed with family. MRI not amenable due to patient's body habitus. We'll perform CT contrast head to rule out brain abscess/ hemorrhage. De-escalate antibiotics based on Gram stain. So far negative. continue empiric treatment. 09/14-negative CT head for brain abscess. Patient clinically improved and now demanding her baseline home meds including Ambien/pioids/neuropathy medication. Explained reasoning behind cutting down the dose due to mental status change. blood cultures positive for staph aureus. Sensitivity is pending. Surveillance cultures processing. white count down to 14.1. ESR 95. High-risk secondary bacterial seeding/endocarditis. Patient also has prosthetic knee with also secondarily seed with bacteremia. large body habitus over 360 pounds. Utility of transthoracic echo is questionable. Will discuss with cardiology for transesophageal echo. We will attempt transfer to tertiary Center for ID consult. No stigmata of infectious endocarditis splinter hemorrhage except for blood cultures/elevated ESR and murmur. - Constitutional Vitals: Vital Signs Temp Pulse Resp BP Pulse Ox 97.7 F 94 H 18 177/111 97 09/14/16 04:00 09/13/16 20:25 09/14/16 04:00 09/14/16 04:00 09/14/16 04:00 Period Temp Pulse Resp BP Sys/Schultz Pulse Ox Last 24 Hr 97.6 F-98.9 F 81-102 18-24 121-177/76-122 95-100 Intake and Output 09/13/16 09/14/16 09/14/16 21:59 05:59 13:59 Intake Total 500 / 500 1200 / 1200 218 / 218 Output Total 1100 / 1100 1500 / 1500 Balance -600 / -600 -300 / -300 218 / 218 Weight 359 lb 1.6 oz Intake & Output: Intake & Output 09/13/16 09/14/16 09/14/16 21:59 05:59 13:59 Intake Total 500 / 500 1200 / 1200 218 / 218 Output Total 1100 / 1100 1500 / 1500 Balance -600 / -600 -300 / -300 218 / 218 Weight 359 lb 1.6 oz Intake: IV 500 / 500 1050 / 1050 218 / 218 Zovirax 800 mg In Sodium 150 / 150 150 / 150 118 / 118 Chloride 0.9% 150 ml @ 100 mls/hr IV Q8H [facility] Rx# :[id number] Ampicillin 2 gm In Sodium 200 / 200 300 / 300 Chloride 0.9% 100 ml @ 100 mls/hr IV Q4H [facility] Rx# :[id number] Vancomycin 1,500 mg In 500 / 500 Sodium Chloride 0.9% 500 ml @ 333.3 mls/hr IV Q12H [facility] Rx#:[id number] Rocephin 2 gm In Dextrose 50 / 50 5% in Water 50 ml @ 100 mls/hr IV DAILY [facility] Rx#: [id number] Oral 150 / 150 Output: Urine Catheter Amount 1100 / 1100 1500 / 1500 Medical - PN: Obj Da - Labs CBC & Chem 7: 09/14/16 04:00 09/14/16 04:00 Labs: Abnormal Lab Results 09/14/16 09/14/16 09/13/16 04:00 04:00 00:01 WBC 14.1 H RDW 16.8 H Plt Count 455 H Seg Neutrophils % Lymphocytes % 12 L Myelocytes % 1 H RBC Morphology Abnorm A Anisocytosis 1+ A Chloride 95 L Glucose 145 H 174 H Phosphorus 2.0 L GGT 192 H 208 H AST 43 H ALT 43 H Alkaline Phosphatase 123 H Lactate Dehydrogenase 307 H 276 H Globulin 3.9 H Albumin/Globulin Ratio 0.9 L 0.9 L 09/13/16 00:01 WBC 15.5 H RDW 16.5 H Plt Count Seg Neutrophils % 79 H Lymphocytes % 8 L Myelocytes % RBC Morphology Abnorm A Anisocytosis 1+ A Chloride Glucose Phosphorus GGT AST ALT Alkaline Phosphatase Lactate Dehydrogenase Globulin Albumin/Globulin Ratio Meds: Medications Acetaminophen (Tylenol) 650 mg PO Q4-6HP PRN PRN Reason: PAIN/FEVER > 101 Last Admin: 09/13/16 04:59 Dose: 650 mg Acetaminophen/Hydrocodone Bitart ([place] 10/325mg) 1 tab PO Q6HP PRN PRN Reason: Pain Last Admin: 09/14/16 07:00 Dose: 1 tab Cyclobenzaprine HCl (Flexeril) 10 mg PO TID [facility] Last Admin: 09/14/16 09:38 Dose: 10 mg Dextrose (Dextrose 50%) 0 ml IV UD PRN PRN Reason: Hypoglycemia Diagnostic Test (Pha) (Accu-Chek) 1 each FS ACHS [facility] Last Admin: 09/14/16 07:53 Dose: 1 each Docusate Sodium (Colace) 100 mg PO BID [facility] Last Admin: 09/14/16 09:20 Dose: 100 mg Duloxetine HCl (Cymbalta) 60 mg PO BID [facility] Last Admin: 09/14/16 09:39 Dose: 60 mg Gabapentin (Neurontin) 200 mg PO QID [facility] Last Admin: 09/14/16 09:20 Dose: 200 mg Heparin Sodium (Porcine) (Heparin Flush) 2 ml IV Q12 [facility] Last Admin: 09/14/16 08:02 Dose: Not Given Hydrocortisone (Cortef) 10 mg PO QAC [facility] Last Admin: 09/14/16 09:39 Dose: 10 mg Hydrocortisone (Cortef) 5 mg PO QPMCC [facility] Last Admin: 09/13/16 17:37 Dose: 5 mg Magnesium Sulfate (Magnesium Sulfate) 2 gm in 50 mls @ 50 mls/hr IV UD PRN PRN Reason: MG = or < 1.7 Sodium Chloride (Sodium Chloride 0.9%) 1,000 mls @ 50 mls/hr IV .Q20H [facility] Stop: 09/15/16 06:00 Last Admin: 09/13/16 14:36 Dose: Not Given Sodium Chloride (Sodium Chloride 0.9%) 1,000 mls @ 0 mls/hr IV BOLUS [facility] PRN Reason: Wide Open Last Admin: 09/13/16 17:40 Dose: Not Given Acetaminophen (Ofirmev) 1,000 mg in 100 mls @ 200 mls/hr IV Q6HP PRN PRN Reason: PAIN/FEVER > 101 Last Infusion: 09/12/16 21:56 Dose: Infused Acyclovir Sodium 800 mg/ (Sodium Chloride) 150 mls @ 100 mls/hr IV Q8H [facility] Last Infusion: 09/14/16 06:00 Dose: 0 mls/hr Ampicillin Sodium 2 gm/ Sodium (Chloride) 100 mls @ 100 mls/hr IV Q4H [facility] Last Admin: 09/14/16 09:19 Dose: 100 mls/hr Vancomycin HCl 1,500 mg/ (Sodium Chloride) 500 mls @ 333.3 mls/hr IV Q12H [facility] Last Infusion: 09/13/16 23:00 Dose: Infused Metronidazole (Flagyl) 500 mg in 100 mls @ 100 mls/hr IV Q6H [facility] Last Infusion: 09/14/16 06:30 Dose: Infused Ceftriaxone Sodium 2 gm/ (Dextrose) 50 mls @ 100 mls/hr IV Q24H [facility] Thiamine HCl 100 mg/ Sodium (Chloride) 51 mls @ 50 mls/hr IV Q24H [facility] Stop: 09/15/16 12:02 Insulin Human Lispro (Humalog) 0 unit SQ ACHS [facility] PRN Reason: Protocol Last Admin: 09/14/16 09:19 Dose: 1 unit Iron Carb/Multivit/[place]/Folic Acid (Multivitamin W/Minerals) 1 tab PO DAILY [facility] Last Admin: 09/14/16 09:20 Dose: 1 tab Losartan Potassium (Cozaar) 100 mg PO DAILY [facility] Last Admin: 09/14/16 09:19 Dose: 100 mg Mirtazapine (Remeron) 15 mg PO QHS [facility] Last Admin: 09/13/16 20:38 Dose: 15 mg Morphine Sulfate (Ms Contin) 30 mg PO BID [facility] Last Admin: 09/14/16 09:39 Dose: 30 mg Nystatin (Kenalog) 1 dose TOPICAL TIDP PRN PRN Reason: candidiasis Ondansetron HCl (Zofran) 4 mg IV Q4-6HP PRN PRN Reason: Nausea And Vomiting Canagliflozin [ Invokana] 100 Mg Tablet 1 dose PO QAM [facility] Last Admin: 09/14/16 09:42 Dose: 1 dose Potassium Chloride (Klor-Con) 40 meq PO DAILYP PRN PRN Reason: K+ < 3.5 Potassium Chloride (Kdur) 20 meq PO QAMCC [facility] Last Admin: 09/14/16 09:20 Dose: 20 meq Senna/Docusate Sodium (Senna Plus Tablet) 1 tab PO HS [facility] Last Admin: 09/13/16 20:52 Dose: Not Given Sodium Chloride (Saline Flush) 10 ml IV Q8 [facility] Last Admin: 09/14/16 07:03 Dose: 10 ml Sodium Chloride (Saline Flush) 10 ml IV UD PRN PRN Reason: FLUSH Vancomycin HCl (Vancomycin Per Pharmacy) 1 order IV UD [facility] Zolpidem Tartrate (Ambien) 10 mg PO HSP PRN PRN Reason: Insomnia Medical - PN: A/P - Time Spent With Patient Total time spent is greater than 50% in coordination of care (as documented) at patient's floor/unit and/or counseling patient: 25 - 35 minutes (1) Acute bacterial meningitis Status: Acute Assessment and plan: * Acute bacterial meningitis with likely encephalitis- No evidence of brain abscess on CT head. DC IV Flagyl and ampicillin. vancomycin/Rocephine. attending to place PICC line. transfer coordination at [facility] for ID/cardiology consult. mentation much improved. * Severe sepsis secondary to above-on antibiotic coverage. white count at 14.1 down from 17.1 * right lower extremity cellulitis-Continue antibiotic coverage, wound care consulted. mproving erythema * DM type II basal prandial insulin * Chronic pain on morphine/Hydrocodone at home dose * anxiety disorder mirtazapine/ duloxetine * neuropathy restart gabapentin add low-dose. Cyclobenzaprine held * full code status Plan * DC Flagyl/ampicillin * transfer to tertiary Center for ID and cardiology consult in light of high risk secondary seeding * pre-existing medical condition management as above. patient requesting her home dose pain meds Current Visit: Yes Medical - PN: Qual - Stroke Symptom Onset Unknown: No - VTE Deep Vein Thrombosis/Pulmonary Embolism Present on Admission: No
[2016-09-14] MEDS ORDERED: THIAMINE 100 MG in 0.9 % SODIUM CHLORIDE 50 ML IV SCH (11:00)
--- NOTE | 2016-09-14 11:06 | Transfer Summary ---
Transfer Discharge Sum: Prov Patient information: Note initiated : 09/14/16 at 10:58 am Service Date, if different from initiated Date: [] Patient: Amber Weiss 51 y/o F admitted on 09/12/16 for Mental Status Change , Pyogenic Meningitis. Chief Complaint: [] Date of admission: 09/12/16 17:50 Discharge Date: 09/14/16 Primary care physician: [f_Reg Prim Care Provider] Consults: 09/13/16 11:01 Consult to Physician [CONS] Routine Comment: Consulting Provider: Clark Woo Reason For Exam: Physician to Consult Receiving physician/facility: Dr. Fabian Guerrier Transfer Discharge Sum: Diag - Discharge Diagnosis (1) Acute bacterial meningitis Status: Acute Transfer Discharge Sum: Med - Medications Active and Home Medications: Home Medications cyclobenzaprine 10 mg tablet 10 mg PO TID 08/07/15 [History Confirmed 09/12/16] gabapentin 800 mg tablet 800 mg PO QID tab 08/07/15 [History Confirmed 09/12/16 ] hydrocodone 10 mg-acetaminophen 325 mg tablet 1 tab PO QID 08/07/15 [History Confirmed 09/12/16] mirtazapine 15 mg tablet 15 mg PO QHS 08/07/15 [History Confirmed 09/12/16] celecoxib 200 mg capsule 200 mg PO BID 30 Days 10/02/15 [History Confirmed 09/12] duloxetine 60 mg capsule,delayed release 60 mg PO BID cap 10/02/15 [History Confirmed 09/12/16] nystatin 100,000 unit/gram topical powder 1 applic TOPICAL TID PRN #120 each 05/17 [Rx Confirmed 09/12/16] hydrocortisone 5 mg tablet 10 mg PO .COMPLEX 01/08/16 [History Confirmed ] metformin ER 500 mg 24 hr tablet,extended release 500 mg PO QDAY #60 tab [Rx Confirmed 09/12/16] canagliflozin 100 mg tablet 100 mg PO QAM #60 tab 04/07/16 [Rx Confirmed ] morphine ER 30 mg tablet,extended release 30 mg PO TID tab 04/22/16 [History Confirmed 09/12/16] cefdinir 300 mg capsule 300 mg PO Q12H 14 Days 07/08/16 [Rx Confirmed 09/12/16] cholecalciferol (vitamin D3) 5,000 unit capsule 5,000 unit PO QDAY cap [History Confirmed 09/12/16] doxycycline hyclate 100 mg tablet 100 mg PO BID 14 Days 07/08/16 [Rx Confirmed 09/12/16] furosemide 40 mg tablet 40 mg PO QDAY #60 tab 07/08/16 [Rx Confirmed 09/12/16] potassium chloride ER 10 mEq capsule,extended release 20 meq PO QDAY #120 cap [Rx Confirmed 09/12/16] pyridoxine (vitamin B6) 100 mg tablet 100 mg PO QDAY tab 07/08/16 [History Confirmed 09/12/16] valsartan 160 mg tablet 160 mg PO QDAY #60 tab 07/08/16 [Rx Confirmed 09/12/16] Ciprofloxacin [Cipro] 250 mg PO BID #20 tablet 09/12/16 [Rx Confirmed 09/12/16] Active Medications Acetaminophen (Tylenol) 650 mg PO Q4-6HP PRN PRN Reason: PAIN/FEVER > 101 Last Admin: 09/13/16 04:59 Dose: 650 mg Acetaminophen/Hydrocodone Bitart ([place] 10/325mg) 1 tab PO Q6HP PRN PRN Reason: Pain Last Admin: 09/14/16 07:00 Dose: 1 tab Cyclobenzaprine HCl (Flexeril) 10 mg PO TID [facility] Last Admin: 09/14/16 09:38 Dose: 10 mg Dextrose (Dextrose 50%) 0 ml IV UD PRN PRN Reason: Hypoglycemia Diagnostic Test (Pha) (Accu-Chek) 1 each FS ACHS [facility] Last Admin: 09/14/16 07:53 Dose: 1 each Docusate Sodium (Colace) 100 mg PO BID [facility] Last Admin: 09/14/16 09:20 Dose: 100 mg Duloxetine HCl (Cymbalta) 60 mg PO BID [facility] Last Admin: 09/14/16 09:39 Dose: 60 mg Gabapentin (Neurontin) 200 mg PO QID [facility] Last Admin: 09/14/16 09:20 Dose: 200 mg Heparin Sodium (Porcine) (Heparin Flush) 2 ml IV Q12 [facility] Last Admin: 09/14/16 08:02 Dose: Not Given [facility] ([facility]ef) [facility] Last Admin: 09/14/16 09:39 Dose: 10 mg Hydrocortisone (Cortef) 5 mg PO QPMCC [facility] Last Admin: 09/13/16 17:37 Dose: 5 mg Magnesium Sulfate (Magnesium Sulfate) 2 gm in 50 mls @ 50 mls/hr IV UD PRN PRN Reason: MG = or < 1.7 Sodium Chloride (Sodium Chloride 0.9%) 1,000 mls @ 50 mls/hr IV .Q20H [facility] Stop: 09/15/16 06:00 Last Admin: 09/13/16 14:36 Dose: Not Given Sodium Chloride (Sodium Chloride 0.9%) 1,000 mls @ 0 mls/hr IV BOLUS [facility] PRN Reason: Wide Open Last Admin: 09/13/16 17:40 Dose: Not Given Acetaminophen (Ofirmev) 1,000 mg in 100 mls @ 200 mls/hr IV Q6HP PRN PRN Reason: PAIN/FEVER > 101 Last Infusion: 09/12/16 21:56 Dose: Infused Acyclovir Sodium 800 mg/ (Sodium Chloride) 150 mls @ 100 mls/hr IV Q8H [facility] Last Infusion: 09/14/16 06:00 Dose: 0 mls/hr Vancomycin HCl 1,500 mg/ (Sodium Chloride) 500 mls @ 333.3 mls/hr IV Q12H [facility] Last Infusion: 09/13/16 23:00 Dose: Infused Ceftriaxone Sodium 2 gm/ (Dextrose) 50 mls @ 100 mls/hr IV Q24H [facility] Thiamine HCl 100 mg/ Sodium (Chloride) 51 mls @ 50 mls/hr IV Q24H [facility] Stop: 09/15/16 12:02 Insulin Human Lispro (Humalog) 0 unit SQ ACHS [facility] PRN Reason: Protocol Last Admin: 09/14/16 09:19 Dose: 1 unit Iron Carb/Multivit/[place]/Folic Acid (Multivitamin W/Minerals) 1 tab PO DAILY [facility] Last Admin: 09/14/16 09:20 Dose: 1 tab Losartan Potassium (Cozaar) 100 mg PO DAILY [facility] Last Admin: 09/14/16 09:19 Dose: 100 mg Mirtazapine (Remeron) 15 mg PO QHS [facility] Last Admin: 09/13/16 20:38 Dose: 15 mg Morphine Sulfate (Ms Contin) 30 mg PO BID [facility] Last Admin: 09/14/16 09:39 Dose: 30 mg Nystatin (Kenalog) 1 dose TOPICAL TIDP PRN PRN Reason: candidiasis Ondansetron HCl (Zofran) 4 mg IV Q4-6HP PRN PRN Reason: Nausea And Vomiting Canagliflozin [ Invokana] 100 Mg Tablet 1 dose PO QAM [facility] Last Admin: 09/14/16 09:42 Dose: 1 dose Potassium Chloride (Klor-Con) 40 meq PO DAILYP PRN PRN Reason: K+ < 3.5 Potassium Chloride (Kdur) 20 meq PO QAMCC [facility] Last Admin: 09/14/16 09:20 Dose: 20 meq Senna/Docusate Sodium (Senna Plus Tablet) 1 tab PO HS [facility] Last Admin: 09/13/16 20:52 Dose: Not Given Sodium Chloride (Saline Flush) 10 ml IV Q8 [facility] Last Admin: 09/14/16 07:03 Dose: 10 ml Sodium Chloride (Saline Flush) 10 ml IV UD PRN PRN Reason: FLUSH Vancomycin HCl (Vancomycin Per Pharmacy) 1 order IV UD [facility] Zolpidem Tartrate (Ambien) 10 mg PO HSP PRN PRN Reason: Insomnia Transfer Discharge Sum: Hosp Hospital course: TRANSFER DIAGNOSIS * Acute bacterial meningitis with likely encephalitis- No evidence of brain abscess on CT head. DC IV Flagyl and ampicillin. vancomycin/Rocephine. attending to place PICC line. transfer coordination at [facility] for ID/cardiology consult. mentation much improved. * Severe sepsis secondary to above-clinical improvement noted on broad spectrum antibiotic coverage. white count at 14.1 down from 17.1 * Staph aureus bacteremia- Surveillance cultures pending. Sensitivities pending. * Right lower extremity cellulitis-Continue antibiotic coverage, wound care consulted. mproving erythema * DM type II basal prandial insulin * Chronic pain on morphine/Hydrocodone at home dose * anxiety disorder mirtazapine/ duloxetine * neuropathic pain -Patient has been on gabapentin/cyclobenzaprine which has been held during this hospitalizatio BRIEF HOSPITAL COURSE Ms. Weiss is a 51 year old morbidly obese female history of chronic pain and right lower extremity cellulitis intermittently treated on antibiotics since March comes in mental status change. 09/12- patient admitted with mental status changes, photophobia headache and fever progressing over the last few days. She has been intermittently treated for right lower extremity cellulitis with Cedinir/levaquin since March. However she clinically deteriorated with active hallucinations and confusion prompting her to be evaluated to [facility] ER. initial workup was significant for white count at 17,100. She was diagnosed with UTI and discharged on ciprofloxacin but shortly thereafter returned with worsening mental status change. CSF studies revealed 148 WBCs with neutrophil predominance and 933 protein clearly suggestive of bacterial meningitis/encephalitis. Started on Rocephin/dexamethasone/ampicillin/vancomycin/acyclovir. Neuro imaging to rule out brain abscess. At this time will empirically start her on anaerobic coverage with Flagyl until neuroimaging to be performed. 09/13- patient clinically better with resolution of hallucination and back to baseline. More lucid and alert. at bedside. Case discussed with family. MRI not amenable due to patient's body habitus. We'll perform CT contrast head to rule out brain abscess/ hemorrhage. De-escalate antibiotics based on Gram stain. So far negative. continue empiric treatment. blood cultures positive for gram-positive cocci 09/14-negative CT head for brain abscess. Patient clinically improved and now demanding her baseline home meds including Ambien/pioids/neuropathy medication. Explained reasoning behind cutting down the dose due to mental status change. Blood cultures positive for staph aureus. Sensitivity is pending. Surveillance cultures processing. white count down to 14.1. ESR 95. High-risk secondary bacterial seeding endocarditis. Patient also has prosthetic knee with also secondarily seed with bacteremia. Large body habitus over 360 pounds. Utility of transthoracic echo is questionable. Will discuss with cardiology for transesophageal echo. We will attempt transfer to tertiary Center for ID consult. No stigmata of infectious endocarditis splinter hemorrhage except for blood cultures/elevated ESR and murmur. ADDENDUM Case discussed with [facility] data report analyst and [place] hospitalist service Dr Guerrier. Appreciate their help in accepting patient for further management in consultation with cardiology and infectious disease specialist to determine duration of antibiotics and evaluation of secondary bacterial seeding and ruling out infective endocarditis in light of staph aureus bacteremia. patient will be transferred via ground ambulance. Ampicillin and Flagyl have been discontinued. HSV DNA pending along with CSF cultures. - Time Spent with Patient Total time spent providing and/or coordinating transfer services: Greater than 30 minutes Transfer Discharge Sum: Exam - Constitutional Vitals: Vital Signs Temp Pulse Resp BP BP Pulse Ox 09/14/16 04:00 97.7 F 18 177/111 97 09/14/16 00:00 98.9 F 18 121/109 96 09/13/16 20:25 94 H 99 09/13/16 20:16 98.0 F 94 H 159/82 100 09/13/16 20:15 95 H 140/122 100 09/13/16 20:14 96 H 100 09/13/16 20:00 98.6 F 24 159/82 99 09/13/16 18:00 99 09/13/16 17:14 94 H 140/83 98 09/13/16 17:13 94 H 98 09/13/16 16:01 96 H 140/76 98 09/13/16 16:00 94 H 97 09/13/16 15:30 90 99 09/13/16 15:00 89 97 09/13/16 14:30 91 H 100 09/13/16 14:00 102 H 98 09/13/16 13:30 89 98 09/13/16 13:00 86 99 09/13/16 12:30 91 H 96 09/13/16 12:14 97.6 F 83 162/92 98 09/13/16 12:13 84 95 09/13/16 11:30 81 100 09/13/16 11:00 88 97 Intake and Output 09/13/16 09/14/16 09/14/16 21:59 05:59 13:59 Intake Total 500 / 500 1200 / 1200 218 / 218 Output Total 1100 / 1100 1500 / 1500 Balance -600 / -600 -300 / -300 218 / 218 Intake: IV 500 / 500 1050 / 1050 218 / 218 Zovirax 800 mg In Sodium 150 / 150 150 / 150 118 / 118 Chloride 0.9% 150 ml @ 100 mls/hr IV Q8H [facility] Rx# :[id number] Ampicillin 2 gm In Sodium 200 / 200 300 / 300 Chloride 0.9% 100 ml @ 100 mls/hr IV Q4H [facility] Rx# :[id number] Vancomycin 1,500 mg In 500 / 500 Sodium Chloride 0.9% 500 ml @ 333.3 mls/hr IV Q12H [facility] Rx#:[id number] Rocephin 2 gm In Dextrose 50 / 50 5% in Water 50 ml @ 100 mls/hr IV DAILY [facility] Rx#: [id number] Oral 150 / 150 Output: Urine Catheter Amount 1100 / 1100 1500 / 1500 Other: Weight 359 lb 1.6 oz General appearance: morbidly obese, no acute distress Additional comments: Right lower extremity redness/erythema improved mild anxiety nonlabored breathing Nondistended abdomen Mentation at baseline and alert and oriented Transfer Discharge Sum: Data Procedures and tests throughout hospitalization: Pending Orders Transfer Discharge Sum: A/P - Problem Maintenance (1) Acute bacterial meningitis Status: Acute - Plan Functional capacity at transfer: bed bound Overall status at transfer: patient is progressing back to baseline Disposition: Xfer [facility] Quality Measure Queries - VTE Deep Vein Thrombosis/Pulmonary Embolism Present on Admission: No
--- NOTE | 2016-09-14 11:55 | XRay Report ---
CLINICAL INFORMATION: PICC line placement TECHNIQUE: AP portable chest x-ray COMPARISON: Previous examination dated 09/14/2016 FINDINGS: Right-sided PICC line. Tip is at the junction of the superior vena cava and right atrium. Lungs remain clear IMPRESSION: Right-sided PICC line in above described position Interpreted and Authenticated by: Farshad Lu 09/14/16
[2016-09-14] MEDS: VANCOMYCIN 1,500 MG in 0.9 % SODIUM CHLORIDE 500 ML IV SCH (11:57)
[2016-09-14] MEDS: 0.9 % SODIUM CHLORIDE 1,000 ML IV SCH (12:03)
[2016-09-16 11:50] LABS: HSV DNA NOT DETECTED
== END 2016-09-14 16:20 | disposition short-term general hospital (02) | DRG 871 ==
LOC: ED 14:06 → ICU 17:50
PROVIDERS: ADMIT Internal Medicine; ATTEND Internal Medicine

== ENCOUNTER 2018-03-20 11:57 | Inpatient (IN) ==
[2018-03-20] MEDS ORDERED: ACETAMINOPHEN 1,000 MG/100 ML BOTTLE IV ONE (12:29)
[2018-03-20] MEDS ORDERED: cefTRIAXone 1 GM VIAL IV ONE (12:31)
[2018-03-20] MEDS ORDERED: 0.9 % SODIUM CHLORIDE 1,000 ML IV ONE (12:38)
[2018-03-20 12:44] LABS: Basophils # (Auto) 0 K/mcL (0.0-0.3); Basophils % (Auto) 0.1 % (0.0-2.0); Eosinophils # (Auto) 0 K/mcL (0.0-0.7); Eosinophils % (Auto) 0 % (0.0-7.0); Lymphocytes # (Auto) 0.6 K/mcL (1.5-4.8); Lymphocytes % (Auto) 2.7 % (15.5-49.0); Mean Cell Volume 85.2 fL (80.0-100.0); Mean Corpuscular HGB Conc 32.7 g/dL (31.0-36.0); Mean Corpuscular Hemoglobin 27.9 pg (26.0-34.0); Monocytes # (Auto) 0.5 K/mcL (0.1-0.9); Monocytes % (Auto) 2.2 % (1.0-12.0); Platelet Count 306 K/mcL (140-440); RBC 5.14 M/mcL (4.00-5.20); Red Cell Distribution Width 15.1 % (11.5-14.5)
--- NOTE | 2018-03-20 12:45 | XRay Report ---
HISTORY: Tachycardia, tachypnea, fever and weakness FINDINGS: Right diaphragm is moderately elevated. This is of undetermined etiology. The lungs are clear, without evidence of pneumonia or congestive heart failure. The heart is borderline enlarged but magnified by portable technique and elevated diaphragm. Allowing for differences in technique there has been little change from the prior chest CT done on 01/06/17. IMPRESSION: No acute abnormality Interpreted and Authenticated by: Nando Leblanc 03/20/18
[2018-03-20] MEDS ORDERED: ONDANSETRON 4 MG/2 ML VIAL IV ONE (12:50)
[2018-03-20 13:06] LABS: ALT/SGPT 101 U/l (0-40); Albumin 4.1 gm/dL (3.2-5.2); Albumin/Globulin Ratio 1.3 (1.0-2.3); Alkaline Phosphatase 141 U/L (39-117); Blood Urea Nitrogen 13 mg/dl (6-20)
--- NOTE | 2018-03-20 13:22 | Emergency Department Note ---
Weakness HPI - General Chief complaint: Weakness Stated complaint: Weakness, Confusion Time Seen by Provider: 03/20/18 12:12 Source: patient Mode of arrival: ambulatory - History of Present Illness HPI Narrative: 53-year-old female presents with fever, chills, and redness to the right lower extremity for the last 2 days. States she first noticed it yesterday when she woke up. She had chills throughout the day but unknown fever. She noticed her right lower leg was slightly red and warm. Woke up with it worse today. Has had severe chills. Family reports she seems confused or not with it at times. No cough or cold symptoms. No abdominal pain. Does have nausea. No vomiting or diarrhea. No sore throat or ear pain. No dysuria or frequency however she states she is incontinent of urine but that is not always abnormal for her. No home treatments. States she has had a history of sepsis in the past and she feels similar. - Related Data Home Medications Medication Instructions Recorded Confirmed cyclobenzaprine 10 mg tablet 10 mg PO TID 08/07/15 11/08/17 gabapentin 800 mg tablet 800 mg PO QID tab 08/07/15 11/08/17 hydrocodone 10 mg-acetaminophen 1 tab PO QID 08/07/15 11/08/17 325 mg tablet mirtazapine 15 mg tablet 15 mg PO QHS 08/07/15 11/08/17 duloxetine 60 mg capsule,delayed 60 mg PO BID cap 10/02/15 11/08/17 release hydrocortisone 5 mg tablet 10 mg PO .COMPLEX 01/08/16 11/08/17 cholecalciferol (vitamin D3) 5,000 5,000 unit PO QDAY cap 07/08/16 11/08/17 unit capsule morphine ER 30 mg tablet,extended 30 mg PO Q12H 12/23/16 11/08/17 release ibuprofen 200 mg capsule 600 mg PO QID cap 01/18/17 11/08/17 empagliflozin 10 mg tablet 10 mg PO QDAY 04/21/17 11/08/17 Previous Rx's Medication Instructions Recorded nystatin 100,000 unit/gram topical 1 applic TOPICAL TID PRN #120 each 01/01/16 powder valsartan 320 1 tab PO QDAY #90 tab 08/25/17 mg-hydrochlorothiazide 12.5 mg tablet cephalexin 500 mg capsule 500 mg PO QID #720 cap 08/29/17 metformin ER 1,000 mg 24 hr 1,000 mg PO BID #120 tab 11/08/17 tablet,extended release Allergies Allergy/AdvReac Type Severity Reaction Status Date / Time Sulfa (Sulfonamide Allergy Severe Rash Verified 11/08/17 10:09 Antibiotics) Review of Systems All systems ED: reviewed and negative except as stated. 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) Cellulitis (Acute) Venous stasis dermatitis of right lower extremity (Acute) Cellulitis (Acute) Sciatica (Chronic) Herniated disc (Chronic) DDD (degenerative disc disease) (Chronic) Bone spur of foot (Chronic) Plantar fasciitis, bilateral (Chronic) Bursitis of hip (Chronic) Neuropathy (Chronic) Fibromyalgia (Chronic) Osteoporosis (Chronic) Migraine (Chronic) Liver disease (Chronic) Focal nodular hyperplasia of liver (Chronic) Joint pain (Chronic) Insomnia (Chronic) High blood pressure (Chronic) Gallbladder problem (Chronic) Diabetes mellitus, type II (Chronic) Depression (Chronic) Daytime sleepiness (Chronic) Muscle pain (Chronic) Arthritis (Chronic) Anxiety (Chronic) Past Surgical History H/O adenoidectomy (Acute) H/O hand surgery (Acute) H/O shoulder surgery (Acute) H/O: hysterectomy (Acute) History of placement of ear tubes (Acute) History of surgery of liver (Acute) Hx of cholecystectomy (Acute) Previous section (Acute) S/P knee replacement (Acute) S/P right knee arthroscopy (Acute) Medical history: Reports: arthritis, DM, fibromyalgia, hypertension, migraine, osteoporosis, thyroid disease, other Psychiatric history: Reports: anxiety Surgical history ED: Reports: appendectomy, , cholecystectomy, knee replacement, tonsillectomy, other (resection of liver tumor) - Social History smoking status: Never smoker Alcohol use: Reports: None Drug use: Reports: none Physical Exam General appearance: alert, obese Head: atraumatic, normocephalic, normal inspection Eye: Present: normal appearance. Absent: conjunctival injection ENT: normal exam, normal oropharynx, mucous membranes moist, TM's normal bilaterally, normal external ear exam Neck: Present: normal inspection, trachea midline. Absent: tenderness, lymphadenopathy Chest: Present: symmetric chest wall rise Respiratory: Present: normal lung sounds bilaterally. Absent: respiratory distress, rales/crackles, wheezes, accessory muscle use Cardiovascular: Present: regular rate, tachycardia (Mild tachycardia), normal heart sounds Abdominal: Present: soft, normal bowel sounds, other (Morbid obesity). Absent: distention, tenderness, guarding Extremities: Present: normal capillary refill. Absent: normal inspection ( Right lower extremity with circumferential redness, edema and warmth from the knee down to the ankle. Blanches immediately. No weeping. Tender to the right posterior calf) Neurological: Present: alert, oriented X3 Psychiatric: Present: normal affect, normal mood Skin: Present: warm, dry, intact, normal color, erythema (please see LE assessment) Course Vital Signs Temperature 101.1 F H 03/20/18 11:58 Pulse Rate 115 H 03/20/18 11:58 Respiratory Rate 18 03/20/18 11:58 Blood Pressure 152/103 03/20/18 11:58 Pulse Oximetry (%) 95 03/20/18 11:58 Temperature 101.3 F H 03/20/18 12:51 Pulse Rate 109 H 03/20/18 12:16 Respiratory Rate 17 03/20/18 13:01 Blood Pressure 137/83 03/20/18 13:01 Pulse Oximetry (%) 100 03/20/18 12:16 Weakness - Lab Data Result diagrams: 03/20/18 12:19 03/20/18 12:18 Lab Results 03/20/18 03/20/18 03/20/18 Range/Units 12:18 12:19 12:19 WBC 21.1 H (4.5-11.0) K/mcL RBC 5.14 (4.00-5.20) M/mcL Hgb 14.4 (12.0-15.0) g/dL Hct 43.8 (36.0-48.0) % MCV 85.2 (80.0-100.0) fL MCH 27.9 (26.0-34.0) pg MCHC 32.7 (31.0-36.0) g/dL RDW 15.1 H (11.5-14.5) % Plt Count 306 (140-440) K/mcL MPV 8.2 (7.4-10.4) fL Gran % 95.0 H (38.0-78.0) % Lymph % (Auto) 2.7 L (15.5-49.0) % [place] % (Auto) 2.2 (1.0-12.0) % Eos % (Auto) 0 (0.0-7.0) % Baso % (Auto) 0.1 (0.0-2.0) % Gran # 20.0 H (1.8-8.0) K/mcL Lymph # (Auto) 0.6 L (1.5-4.8) K/mcL [place] # (Auto) 0.5 (0.1-0.9) K/mcL Eos # (Auto) 0 (0.0-0.7) K/mcL Baso # (Auto) 0 (0.0-0.3) K/mcL VBG Lactic Acid 3.0 H (0.5-2.0) mmol/L Sodium 128 L (133-145) mmol/L Potassium 3.6 (3.3-5.1) mmol/L Chloride 88 L (96-108) mmol/L Carbon Dioxide 25 (22-30) mmol/L Anion Gap 15.0 (8-16) BUN 13 (6-20) mg/dl Creatinine 0.8 (0.6-1.1) mg/dl GFR Calculation 83 Glucose 189 H (70-105) mg/dL Calcium 9.8 (8.6-10.4) mg/dl Total Bilirubin 1.2 H (0.0-1.0) mg/dL AST 87 H (0-37) U/l ALT 101 H (0-40) U/l Alkaline Phosphatase 141 H (39-117) U/L Total Protein 7.3 (5.9-8.4) gm/dL Albumin 4.1 (3.2-5.2) gm/dL Globulin 3.2 (2.2-3.7) gm/dL Albumin/Globulin Ratio 1.3 (1.0-2.3) Disposition Pt seen by HUMAN RESOURCES EXECUTIVE ASSISTANT/PA only: Yes Clinical Impression: Cellulitis of lower extremity, Sepsis Disposition: Xfer As Inpt ([facility] Condition: Serious Referrals: Sid Day MD [Primary Care Provider] -
[2018-03-20 14:01] LABS: Appearance,Urine CLEAR; Bacteria,Urine 0 /hpf (0); Bilirubin,Urine NEG (NEG); Color,Urine YELLOW; Glucose,Urine (UA) NEGATIVE (NEG); Leukocyte Esterase,Urine NEG /uL (NEG); Mucus,Urine FEW /hpf (0); Protein,Urine 100 mg/dL (NEG); Specific Gravity,Urine 1.025 (1.000-1.035); Urine Blood 0.03 mg/dL (<0.03); Urine RBC 2 /hpf (0-1); Urine Squamous Epithelial Cell 1 /hpf (0-4); Urine Transitional Epi Cells < 1 /hpf (0-2); Urine WBC 1 /hpf (0-4)
[2018-03-20] MEDS ORDERED: 0.9 % SODIUM CHLORIDE 2,000 ML IV ONE (14:17)
--- NOTE | 2018-03-20 15:03 | Ultrasound Report ---
History: Redness lower leg with pain FINDINGS: Patient is difficult to scan due to large body habitus. From the groin through the popliteal vein there is normal augmentation and compressibility without evidence of thrombosis. Below the knee only a short segment of the posterior tibial vein was identified which appeared normal. Most of the veins in the calf cannot be identified. There is no evidence of soft tissue mass or abnormal fluid collection. IMPRESSION: Limited exam but without evidence of deep venous thrombosis from the groin through the popliteal vein Interpreted and Authenticated by: Nando Leblanc 03/20/18
--- NOTE | 2018-03-20 15:14 | Ultrasound Report ---
History: Elevated liver enzymes, increased weakness and prior partial hepatectomy greater than 20 years ago FINDINGS: Patient was technically difficult to examine due to very large body habitus. The liver is enlarged. The right lobe is roughly 23 cm in length. No gross mass is seen within the liver. The liver parenchyma is dense which suggests fatty infiltration. Doppler shows normal blood flow in the hepatic and portal veins. Gallbladder has been removed. The extrahepatic bile ducts cannot be identified. The patient has no ascites. Allowing for differences in technique there has been little change in appearance of the liver since the prior MRI done on 11/21/17. IMPRESSION: Hepatomegaly with fatty infiltration Interpreted and Authenticated by: Nando Leblanc 03/20/18
--- NOTE | 2018-03-20 15:49 | Internal Med History&Physical ---
Medical - H&P: HPI Patient information: Note initiated : 03/20/18 at 3:42 pm Service Date, if different from initiated Date: [] Patient: Amber Weiss 53 y/o F admitted on for Weakness, Confusion. Chief Complaint: [] History of present illness: Ms. Weiss is a 53 year old F with multiple medical issues presents to the emergency room today for evaluation of not feeling well since 1 day. The patient notes that since yesterday she has been feeling cold associated with chills and rigors. She noted some redness in right leg which has worsened today. She has a history of recurrent cellulitis. The patient also reports that she had some nausea associated with the symptoms. She denies any abdominal pain or vomiting no diarrhea no urinary complaints. The patient's daughter called in to check on the patient today and noticed that she was confused. The patient was therefore brought to the emergency room for further evaluation. The patient does have history of severe infections in the past and the family was very concerned about the present episode. The patient has chronic headaches, and complains about pain from head to toe. She is on chronic pain medications hydrocodone and morphine and gabapentin. The patient however denies any new complaints besides listed above. On presentation to the emergency room the patient was febrile with a temperature of 101.3, tachycardic heart rate 113 blood pressure 152/103. Saturating 100% on room air respirations anywhere between 25-30. Labs showed leukocytosis WBC count of 21,100 hemoglobin 14.4 platelets 306. Sodium 128 potassium 3.6 bicarbonate 25 creatinine 0.8 glucose 189. Total bilirubin elevated at 1.2 AST 87 ALT 101 alk phos 141. Lactic acid 3.0. She had erythema in the right lower extremity DVT scan of the right lower extremity is reported as negative to me by the ER physician. EKG shows sinus tachycardia chest x-ray is reported as negative for acute infiltrates. Liver ultrasound was done shows enlarged liver CBD could not be seen gallbladder is absent. No intrahepatic biliary ductal dilatation. 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) Cellulitis (Acute) Venous stasis dermatitis of right lower extremity (Acute) Cellulitis (Acute) Sciatica (Chronic) Herniated disc (Chronic) DDD (degenerative disc disease) (Chronic) Bone spur of foot (Chronic) Plantar fasciitis, bilateral (Chronic) Bursitis of hip (Chronic) Neuropathy (Chronic) Fibromyalgia (Chronic) Osteoporosis (Chronic) Migraine (Chronic) Liver disease (Chronic) Focal nodular hyperplasia of liver (Chronic) Joint pain (Chronic) Insomnia (Chronic) High blood pressure (Chronic) Gallbladder problem (Chronic) Diabetes mellitus, type II (Chronic) Depression (Chronic) Daytime sleepiness (Chronic) Muscle pain (Chronic) Arthritis (Chronic) Anxiety (Chronic) Surgical history: Past Surgical History H/O adenoidectomy (Acute) H/O hand surgery (Acute) H/O shoulder surgery (Acute) H/O: hysterectomy (Acute) History of placement of ear tubes (Acute) History of surgery of liver (Acute) Hx of cholecystectomy (Acute) Previous section (Acute) S/P knee replacement (Acute) S/P right knee arthroscopy (Acute) Pertinent family history: Family History Mother Arthritis Malignant neoplasm Diabetes mellitus Hypertension Migraine Cerebrovascular accident (CVA) Father Arthritis Dementia Hypertension Aunt Malignant neoplasm Cousin Myocardial Infarction Medical - H&P: Meds Home Medications Medication Instructions Recorded Confirmed Type cyclobenzaprine 10 mg tablet 10 mg PO TID 08/07/15 11/08/17 History gabapentin 800 mg tablet 800 mg PO QID tab 08/07/15 11/08/17 History hydrocodone 10 mg-acetaminophen 1 tab PO QID 08/07/15 11/08/17 History 325 mg tablet mirtazapine 15 mg tablet 15 mg PO QHS 08/07/15 11/08/17 History duloxetine 60 mg capsule,delayed 60 mg PO BID cap 10/02/15 11/08/17 History release nystatin 100,000 unit/gram topical 1 applic TOPICAL TID PRN #120 each 01/01/16 11/08/17 Rx powder hydrocortisone 5 mg tablet 10 mg PO .COMPLEX 01/08/16 11/08/17 History cholecalciferol (vitamin D3) 5,000 5,000 unit PO QDAY cap 07/08/16 11/08/17 History unit capsule morphine ER 30 mg tablet,extended 30 mg PO Q12H 12/23/16 11/08/17 History release ibuprofen 200 mg capsule 600 mg PO QID cap 01/18/17 11/08/17 History empagliflozin 10 mg tablet 10 mg PO QDAY 04/21/17 11/08/17 History valsartan 320 1 tab PO QDAY #90 tab 08/25/17 11/08/17 Rx mg-hydrochlorothiazide 12.5 mg tablet metformin ER 1,000 mg 24 hr 1,000 mg PO BID #120 tab 11/08/17 11/08/17 Rx tablet,extended release Allergies Allergy/AdvReac Type Severity Reaction Status Date / Time Sulfa (Sulfonamide Allergy Severe Rash Verified 11/08/17 10:09 Antibiotics) Medical - H&P: Exam - Constitutional Vitals: Temp Pulse Resp BP Pulse Ox 100.9 F H 109 H 15 145/88 100 03/20/18 15:16 03/20/18 12:16 03/20/18 13:21 03/20/18 15:16 03/20/18 12:16 Exam: GENERAL: The patient is a well-developed, well-nourished in no apparent distress. Is alert and oriented x3. VITAL SIGNS: Reviewed and as noted elsewhere. HEENT: Head is normocephalic and atraumatic. Extraocular muscles are intact. Pupils are equal, round, and reactive to light. Nares appeared normal. Mouth appears any without lesions. Mucous membranes are moist. NECK: Normal to inspection, Supple, No lymphadenopathy or thyromegaly. LUNGS: Air entry equal on both sides, no wheezing, crackles or rhonchi noted. No accessory muscles of respiration HEART: Tachycardic rate and rhythm normal, S1 and S2 heard, no Gallop, S3 or Rub Noted, No Gross murmur heard. ABDOMEN: Soft, nontender, and nondistended. Positive bowel sounds. No hepatosplenomegaly was noted. EXTREMITIES: Right leg erythema extending from just below the knee to the ankle. Warm to touch no obvious crepitus or fluctuation noted. Skin is dry in both lower extremities, mild ulceration noted dry half a centimeter on the great toe. NEUROLOGIC: Cranial nerves II through XII are grossly intact. Motor and Sensory System Grossly Intact PSYCHIATRIC: Normal affect, Normal Mood. Appropriate Behavior. SKIN: No ulceration or wounds noted, No jaundice, No rash noted. Medical - H&P: Reslt - Labs CBC & Chem 7: 03/20/18 12:19 03/20/18 12:18 Labs: Short CBC 03/20/18 Range/Units 12:19 WBC 21.1 H (4.5-11.0) K/mcL Hgb 14.4 (12.0-15.0) g/dL Hct 43.8 (36.0-48.0) % Plt Count 306 (140-440) K/mcL BMP 03/20/18 12:18 Sodium 128 L Potassium 3.6 Chloride 88 L Carbon Dioxide 25 BUN 13 Creatinine 0.8 Glucose 189 H Calcium 9.8 Liver Function 03/20/18 Range/Units 12:18 Total Bilirubin 1.2 H (0.0-1.0) mg/dL AST 87 H (0-37) U/l ALT 101 H (0-40) U/l Alkaline Phosphatase 141 H (39-117) U/L Albumin 4.1 (3.2-5.2) gm/dL Urine 03/20/18 Range/Units 13:37 Urine Color Yellow Urine Appearance Clear Urine pH 7.0 (5.0-9.0) Ur Specific [place] 1.025 (1.000-1.035) Urine Protein 100 A (NEG) mg/dL Urine Glucose (UA) Negative (NEG) mg/dL Medical - H&P: A/P - Narrative A/P Narrative: A/P Right Lower extremity Cellulitis Sepsis Lactic Acidosis Hyponatremia Abnormal liver function test Morbid obesity Diabetes mellitus Hypertension Hyperlipidemia Hypothyroidism chronic pain Plan Admit to tele, IV fluids, give another 1 L LR and then maintenance fluids 2 gms rocephin, IV vancomycin per pharmacy follow blood cultures Abnl LFT likely from severe infection, trend for now, usg neg trend lactic acid. Resume home meds once verfired, bp is stable hold home oral DM medications, SSI insulin for glucose control Resume pain meds once verified DVT hep sq Diet Carb Consistent Full code Social History - Social History marital status: - Tobacco smoking status: Never smoker - Alcohol alcohol intake frequency: does not drink - Substance use substance use type: does not use
[2018-03-20] MEDS ORDERED: VANCOMYCIN PER PHARMACY IV SCH (16:39)
[2018-03-20] MEDS ORDERED: NALOXONE HCL 0.4 MG/ML VIAL IV PRN (16:39)
[2018-03-20] MEDS ORDERED: DEXTROSE 31 GM ORAL.SUSP PO PRN (16:39)
[2018-03-20] MEDS ORDERED: traZODone HCL 50 MG TABLET PO PRN (16:39)
[2018-03-20] MEDS ORDERED: ONDANSETRON 4 MG/2 ML VIAL IV PRN (16:39)
[2018-03-20] MEDS ORDERED: DEXTROSE 50% 50 ML VIAL IV PRN (16:39)
[2018-03-20] MEDS ORDERED: LACTATED RINGERS 1,000 ML IV ONE (16:39)
[2018-03-20] MEDS ORDERED: ACETAMINOPHEN 325 MG TABLET PO PRN (16:39)
[2018-03-20] MEDS ORDERED: IBUPROFEN 600 MG TABLET PO PRN (16:49)
[2018-03-20] MEDS ORDERED: cefTRIAXone 1 GM VIAL IV SCH (17:00)
[2018-03-20] MEDS: FLUCONAZOLE 100 MG TABLET PO SCH (17:06)
[2018-03-20] MEDS: morphine 30 MG TAB.SR.12H PO SCH (17:06)
[2018-03-20] MEDS: HYDROcodone/APAP 10/325MG TABLET PO PRN ×2 (17:06→20:32)
[2018-03-20] MEDS: INSULIN LISPRO 1 UNIT/0.01 ML UNIT SQ SCH ×2 (17:07→21:19)
[2018-03-20] MEDS: LACTATED RINGERS 1,000 ML IV SCH (17:58)
[2018-03-20] MEDS: GABAPENTIN 400 MG CAPSULE PO SCH ×2 (17:58→20:32)
[2018-03-20] MEDS ORDERED: VANCOMYCIN 2,000 MG in 0.9 % SODIUM CHLORIDE 500 ML IV ONE (18:00)
[2018-03-20] MEDS: HEPARIN 5,000 UNIT/ML VIAL SQ SCH (20:31)
[2018-03-20] MEDS: DULoxetine 30 MG CAPSULE PO SCH (20:32)
[2018-03-20] MEDS: CYCLOBENZAPRINE 10 MG TABLET PO SCH (20:33)
[2018-03-20] MEDS ORDERED: HYDROCORTISONE 10 MG TABLET PO SCH (21:00)
[2018-03-20] MEDS ORDERED: MIRTAZAPINE 15 MG TABLET PO SCH (21:00)
[2018-03-20] MEDS: 0.9 % SODIUM CHLORIDE 10 ML SYRINGE IV SCH (21:21)
[2018-03-21] MEDS: HYDROcodone/APAP 10/325MG TABLET PO PRN ×3 (02:31→15:36)
[2018-03-21] MEDS: morphine 30 MG TAB.SR.12H PO SCH ×3 (04:00→20:51)
[2018-03-21] MEDS: LACTATED RINGERS 1,000 ML IV SCH ×2 (05:01→06:46)
[2018-03-21] MEDS: 0.9 % SODIUM CHLORIDE 10 ML SYRINGE IV SCH ×4 (05:45→22:05)
[2018-03-21 06:13] LABS: Basophils # (Auto) 0 K/mcL (0.0-0.3); Basophils % (Auto) 0.1 % (0.0-2.0); Eosinophils # (Auto) 0 K/mcL (0.0-0.7); Eosinophils % (Auto) 0 % (0.0-7.0); Granulocytes % (Auto) 87.7 % (38.0-78.0); Lymphocytes % (Auto) 8.7 % (15.5-49.0); Mean Cell Volume 86.5 fL (80.0-100.0); Mean Corpuscular HGB Conc 32.8 g/dL (31.0-36.0); Mean Corpuscular Hemoglobin 28.3 pg (26.0-34.0); Monocytes # (Auto) 0.4 K/mcL (0.1-0.9); Monocytes % (Auto) 3.5 % (1.0-12.0); Platelet Count 245 K/mcL (140-440); Red Cell Distribution Width 15.4 % (11.5-14.5)
[2018-03-21 06:39] LABS: ALT/SGPT 78 U/l (0-40); Albumin 2.9 gm/dL (3.2-5.2); Alkaline Phosphatase 114 U/L (39-117); Bilirubin,Direct < 0.2 mg/dL (0.0-0.3); Blood Urea Nitrogen 13 mg/dl (6-20); Gamma Glutamyl Transpeptidase 262 U/L (5-36); Uric Acid 5.2 mg/dL (2.5-8.0)
[2018-03-21] MEDS ORDERED: MAGNESIUM SULFATE 2 GM/50 ML BAG IV ONE (07:14)
[2018-03-21] MEDS ORDERED: POTASSIUM CHLORIDE 20 MEQ PACKET PO ONE (07:14)
[2018-03-21] MEDS: INSULIN LISPRO 1 UNIT/0.01 ML UNIT SQ SCH ×4 (07:45→21:30)
[2018-03-21] MEDS: GABAPENTIN 400 MG CAPSULE PO SCH ×4 (08:22→20:51)
[2018-03-21] MEDS: DULoxetine 30 MG CAPSULE PO SCH ×2 (08:22→20:50)
[2018-03-21] MEDS: CYCLOBENZAPRINE 10 MG TABLET PO SCH ×3 (08:23→20:51)
[2018-03-21] MEDS: FLUCONAZOLE 100 MG TABLET PO SCH (08:23)
[2018-03-21] MEDS: HEPARIN 5,000 UNIT/ML VIAL SQ SCH ×2 (08:23→20:50)
[2018-03-21] MEDS ORDERED: OLMESARTAN MEDOXOMIL 20 MG TABLET PO SCH (09:00)
[2018-03-21] MEDS ORDERED: HYDROCORTISONE 10 MG TABLET PO SCH ×3 (09:00→21:00)
[2018-03-21] MEDS ORDERED: VITAMIN D3 5,000 UNIT CAPSULE PO SCH (09:00)
[2018-03-21] MEDS ORDERED: HYDROCHLOROTHIAZIDE 12.5 MG CAPSULE PO SCH (09:00)
[2018-03-21] MEDS ORDERED: cefTRIAXone 2 GM in DEXTROSE 5% IN WATER 50 ML IV SCH (09:00)
[2018-03-21] MEDS ORDERED: HYDROCORTISONE 10 MG TABLET PO ONE (09:59)
[2018-03-21] MEDS ORDERED: VANCOMYCIN 1,500 MG in 0.9 % SODIUM CHLORIDE 500 ML IV SCH ×2 (10:00→22:00)
[2018-03-21] MEDS ORDERED: ONDANSETRON 4 MG/2 ML VIAL IV PRN (10:52)
[2018-03-21] MEDS ORDERED: IBUPROFEN 600 MG TABLET PO PRN (10:52)
[2018-03-21] MEDS ORDERED: ACETAMINOPHEN 325 MG TABLET PO PRN (10:52)
[2018-03-21] MEDS ORDERED: NALOXONE HCL 0.4 MG/ML VIAL IV PRN (10:52)
[2018-03-21] MEDS ORDERED: VANCOMYCIN PER PHARMACY IV SCH (10:52)
[2018-03-21] MEDS ORDERED: DEXTROSE 50% 50 ML VIAL IV PRN (10:52)
[2018-03-21] MEDS ORDERED: DEXTROSE 31 GM ORAL.SUSP PO PRN (10:52)
[2018-03-21] MEDS ORDERED: LACTATED RINGERS 1,000 ML IV SCH (10:52)
--- NOTE | 2018-03-21 12:34 | Internal Med Progress Note ---
Medical - PN: Subj Patient information: Note initiated : 03/21/18 at 12:30 pm Service Date, if different from initiated Date: [] Patient: Amber Weiss 53 y/o F admitted on 03/20/18 for Weakness, Confusion. Chief Complaint: [] Interval history: Ms. Weiss is a 53 year old F with multiple medical issues presents to the emergency room today for evaluation of not feeling well since 1 day. The patient notes that since yesterday she has been feeling cold associated with chills and rigors. She noted some redness in right leg which has worsened today. She has a history of recurrent cellulitis. The patient also reports that she had some nausea associated with the symptoms. She denies any abdominal pain or vomiting no diarrhea no urinary complaints. The patient's daughter called in to check on the patient today and noticed that she was confused. The patient was therefore brought to the emergency room for further evaluation. The patient does have history of severe infections in the past and the family was very concerned about the present episode. The patient has chronic headaches, and complains about pain from head to toe. She is on chronic pain medications hydrocodone and morphine and gabapentin. The patient however denies any new complaints besides listed above. On presentation to the emergency room the patient was febrile with a temperature of 101.3, tachycardic heart rate 113 blood pressure 152/103. Saturating 100% on room air respirations anywhere between 25-30. Labs showed leukocytosis WBC count of 21,100 hemoglobin 14.4 platelets 306. Sodium 128 potassium 3.6 bicarbonate 25 creatinine 0.8 glucose 189. Total bilirubin elevated at 1.2 AST 87 ALT 101 alk phos 141. Lactic acid 3.0. She had erythema in the right lower extremity DVT scan of the right lower extremity is reported as negative to me by the ER physician. EKG shows sinus tachycardia chest x-ray is reported as negative for acute infiltrates. Liver ultrasound was done shows enlarged liver CBD could not be seen gallbladder is absent. No intrahepatic biliary ductal dilatation. The patient is being admitted to the hospital for further management, she was given rocephin 1 gm and 2 L saline bolus 03/21 Patient's and examined no acute overnight events. Doing well. Lactic acid trending down. Patient's blood pressure is stable. Still febrile but overall is much better appetite is returning. We will transfer the patient to med surg status Pertinent ROS: Denies headache, dizziness Denies chest pain, palpitations Denies cough or shortness of breath Denies abdominal pain, nausea or vomiting. - Constitutional Vitals: Vital Signs Temp Pulse Resp BP Pulse Ox 99.4 F H 87 18 126/79 93 03/21/18 11:29 03/21/18 11:29 03/21/18 11:29 03/21/18 11:29 03/21/18 11:29 Period Temp Pulse Resp BP Sys/Schultz Pulse Ox Last 24 Hr 98.9 F-102.1 F 83-88 15-24 94-154/48-111 93-100 Intake and Output 03/20/18 03/21/18 03/21/18 21:59 05:59 13:59 Intake Total 3980 / 3980 2630 / 2630 Output Total 2124 / 5 275 / 275 Balance 3980 / 3980 -2125 / -2125 2355 / 2355 Weight 359 lb 6.4 oz Intake & Output: Intake & Output 03/20/18 03/21/18 03/21/18 21:59 05:59 13:59 Intake Total 3980 / 3980 2630 / 2630 Output Total 2125 / 2125 275 / 275 Balance 3980 / 3980 -2125 / -2125 2355 / 2355 Weight 359 lb 6.4 oz Intake: IV 3500 / 3500 1100 / 1100 Sodium Chloride 0.9% 2,000 ml @ 1750 / 1750 Wide Open IV BOLUS ONE Rx#: [id number] Lactated Ringers 1,000 ml @ 100 1000 / 1000 1000 / 1000 mls/hr IV .Q10H [facility] Rx#: [id number] Vancomycin 2,000 mg In Sodium 500 / 500 Chloride 0.9% 500 ml @ 250 mls/ hr IV ONCE ONE Rx#:[id number] Rocephin 2 gm In Dextrose 5% in 50 / 50 Water 50 ml @ 100 mls/hr IV Q24H [facility] Rx#:[id number] Oral 480 / 480 1530 / 1530 Output: Urine Catheter Amount 2125 / 2125 275 / 275 Other: Meal Dinner 1/2 sandwich & cup of soup Breakfast Percent of Meal Consumed Refused 100% Feeding Ability Independent Independent Urine Appearance Clear Uretheral (Quiles) Clear Clear Urine Color Straw Uretheral (Quiles) Straw Light Mikayla Exam: Constitutional; Afebrile, cooperative, alert, not in distress. Respiratory system: Air Entry equal on both sides, No crackles or wheezing, no rhonchi. CVS- Rate rhythm regular, S1,S2 heard, no gallop, no rub. Abdomen- Soft nontender abdomen, no organomegaly, no tenderness, no guarding or rigidity, FIXTURE MAKER- AOOx3, moving all extremities, no gross focal deficit noted. Right lower extremity, unchanged exam Medical - PN: Obj Da - Labs CBC & Chem 7: 03/21/18 03:38 03/21/18 03:38 Labs: Abnormal Lab Results 03/21/18 03/21/18 03/20/18 03:38 03:38 13:37 WBC 11.1 H Hgb 11.9 L RDW 15.4 H Gran % 87.7 H Lymph % (Auto) 8.7 L Gran # 9.7 H Lymph # (Auto) 1.0 L VBG Lactic Acid Sodium Chloride Glucose 144 H Phosphorus 2.3 L Total Bilirubin GGT 262 H AST 53 H ALT 78 H Alkaline Phosphatase Albumin 2.9 L Urine Protein 100 A Urine Ketones 5/tr A Urine Occult Blood 0.03 A Urine Urobilinogen 4.0 A Urine RBC 2 H 03/20/18 03/20/18 03/20/18 12:19 12:19 12:18 WBC 21.1 H Hgb RDW 15.1 H Gran % 95.0 H Lymph % (Auto) 2.7 L Gran # 20.0 H Lymph # (Auto) 0.6 L VBG Lactic Acid 3.0 H Sodium 128 L Chloride 88 L Glucose 189 H Phosphorus Total Bilirubin 1.2 H GGT AST 87 H ALT 101 H Alkaline Phosphatase 141 H Albumin Urine Protein Urine Ketones Urine Occult Blood Urine Urobilinogen Urine RBC Meds: Medications Acetaminophen (Tylenol) 650 mg PO Q6HP PRN PRN Reason: PAIN/FEVER > 101 Hydrocodone Bitart/Acetaminophen (Ross 10/325mg) 1 tab PO QIDP PRN PRN Reason: Pain Cyclobenzaprine HCl (Flexeril) 10 mg PO TID [facility] Dextrose (Dextrose 50%) 0 ml IV UD PRN PRN Reason: Hypoglycemia Diagnostic Test (Pha) (Accu-Chek) 1 each FS ACHS [facility] Last Admin: 03/21/18 11:31 Dose: 1 each Duloxetine HCl (Cymbalta) 60 mg PO BID [facility] Fluconazole (Diflucan) 200 mg PO DAILY [facility] Gabapentin (Neurontin) 800 mg PO QID [facility] Last Admin: 03/21/18 12:22 Dose: 800 mg Glucose (Insta-Glucose) 15 gm PO PRN PRN PRN Reason: Hypoglycemia Heparin Sodium (Porcine) (Heparin) 5,000 unit SQ Q12 [facility] Hydrochlorothiazide (Oretic) 12.5 mg PO DAILY [facility] Hydrocortisone (Cortef) 20 mg PO DAILY@0800 [facility] Hydrocortisone (Cortef) 10 mg PO DAILY@1730 [facility] Ceftriaxone Sodium 2 gm/ (Dextrose) 50 mls @ 100 mls/hr IV Q24H [facility] Lactated Ringer's (Lactated Ringers) 1,000 mls @ 100 mls/hr IV .Q10H [facility] Stop: 03/21/18 12:38 Last Admin: 03/21/18 11:07 Dose: Not Given Vancomycin HCl 1,500 mg/ (Sodium Chloride) 500 mls @ 333.3 mls/hr IV Q12H [facility] Ibuprofen (Motrin) 600 mg PO QIDP PRN PRN Reason: Pain Insulin Human Lispro (Humalog) 0 unit SQ ACHS [facility]; Protocol Last Admin: 03/21/18 12:21 Dose: 1 unit Mirtazapine (Remeron) 15 mg PO QHS [facility] Morphine Sulfate (Ms Contin) 30 mg PO Q12H [facility] Last Admin: 03/21/18 11:15 Dose: Not Given Naloxone HCl (Narcan) 0.1 mg IV Q2MIN PRN PRN Reason: Opiate Reversal Olmesartan (Benicar) 40 mg PO DAILY [facility] Ondansetron HCl (Zofran) 4 mg IV Q4HP PRN PRN Reason: Nausea And Vomiting Sodium Chloride (Saline Flush) 10 ml IV Q8 [facility] Trazodone HCl (Desyrel) 50 - 100 mg PO HSP PRN PRN Reason: Insomnia Vancomycin HCl (Vancomycin Per Pharmacy) 1 order IV UD [facility] Vitamin D (Vitamin D3) 5,000 unit PO QDAY [facility] Medical - PN: A/P - Time Spent With Patient Total time spent is greater than 50% in coordination of care (as documented) at patient's floor/unit and/or counseling patient: - Narrative A/P Narrative: A/P Right Lower extremity Cellulitis Sepsis Lactic Acidosis Hyponatremia Abnormal liver function test Morbid obesity Diabetes mellitus Hypertension Hyperlipidemia Hypothyroidism chronic pain Adrenal insufficiency. Plan xfer to med surg Toleration po diet well increase dose of hydrocortisone 20 and 10 given acute infection 2 gms rocephin, IV vancomycin per pharmacy follow blood cultures, neg growth so far Abnl LFT likely from severe infection, trending down now, usg neg trend lactic acid., improving with fluids. Resume home meds once veified. hold bp meds today. hold home oral DM medications, SSI insulin for glucose control Resume pain meds once verified DVT hep sq Diet Carb Consistent Full code Medical - PN: Qual - Stroke Symptom Onset Unknown: No - VTE Deep Vein Thrombosis/Pulmonary Embolism Present on Admission: No
[2018-03-21] MEDS ORDERED: ALBUTEROL SULFATE 2.5 MG/3 ML NEBULIZER NEB PRN (17:32)
[2018-03-21] MEDS ORDERED: MIRTAZAPINE 15 MG TABLET PO SCH (21:00)
[2018-03-21] MEDS ORDERED: traZODone HCL 50 MG TABLET PO PRN (21:00)
[2018-03-22] MEDS: 0.9 % SODIUM CHLORIDE 10 ML SYRINGE IV SCH (04:37)
[2018-03-22 04:39] LABS: Basophils # (Auto) 0 K/mcL (0.0-0.3); Basophils % (Auto) 0.1 % (0.0-2.0); Eosinophils # (Auto) 0.1 K/mcL (0.0-0.7); Eosinophils % (Auto) 1.2 % (0.0-7.0); Granulocytes % (Auto) 74.6 % (38.0-78.0); Lymphocytes # (Auto) 1.2 K/mcL (1.5-4.8); Lymphocytes % (Auto) 17.9 % (15.5-49.0); Mean Cell Volume 86.9 fL (80.0-100.0); Mean Corpuscular HGB Conc 32.3 g/dL (31.0-36.0); Monocytes # (Auto) 0.4 K/mcL (0.1-0.9); Monocytes % (Auto) 6.2 % (1.0-12.0); Platelet Count 222 K/mcL (140-440); Red Cell Distribution Width 15.2 % (11.5-14.5)
[2018-03-22] MEDS: HYDROcodone/APAP 10/325MG TABLET PO PRN (04:43)
[2018-03-22 05:02] LABS: ALT/SGPT 60 U/l (0-40); Alkaline Phosphatase 111 U/L (39-117); Bilirubin,Direct < 0.2 mg/dL (0.0-0.3); Blood Urea Nitrogen 11 mg/dl (6-20); Gamma Glutamyl Transpeptidase 224 U/L (5-36); Uric Acid 4.8 mg/dL (2.5-8.0)
[2018-03-22] MEDS: HEPARIN 5,000 UNIT/ML VIAL SQ SCH (07:45)
[2018-03-22] MEDS: GABAPENTIN 400 MG CAPSULE PO SCH (07:46)
[2018-03-22] MEDS: DULoxetine 30 MG CAPSULE PO SCH (07:47)
[2018-03-22] MEDS: CYCLOBENZAPRINE 10 MG TABLET PO SCH (07:48)
[2018-03-22] MEDS: INSULIN LISPRO 1 UNIT/0.01 ML UNIT SQ SCH (07:48)
[2018-03-22] MEDS: morphine 30 MG TAB.SR.12H PO SCH (07:51)
[2018-03-22] MEDS ORDERED: HYDROCORTISONE 10 MG TABLET PO SCH ×2 (08:00→09:00)
--- NOTE | 2018-03-22 08:24 | Discharge Summary ---
Medical - DS: Prov Patient information: Note initiated : 03/22/18 at 8:21 am Service Date, if different from initiated Date: [] Patient: Amber Weiss 53 y/o F admitted on 03/20/18 for Weakness, Confusion. Chief Complaint: [] Date of admission: 03/20/18 16:11 Discharge date: 03/22/18 Primary care physician: Robson Day Admitting clinician: Graciela Pappas Consults: 03/20/18 Consult to Physician [CONS] Stat Comment: Consulting Provider: Graciela Pappas Reason For Exam: Physician to Consult Discharging clinician: Graciela Pappas Medical - DS: Meds - Discharge Medications Active and Home Medications: Home Medications cyclobenzaprine 10 mg tablet 10 mg PO TID 08/07/15 [History Confirmed 03/20/18 Last Taken 03/11/17] gabapentin 800 mg tablet 800 mg PO QID tab 08/07/15 [History Confirmed Last Taken 03/12/17] hydrocodone 10 mg-acetaminophen 325 mg tablet 1 tab PO QID 08/07/15 [History Confirmed 03/20/18 Last Taken 03/12/17 15:00] mirtazapine 15 mg tablet 15 mg PO QHS 08/07/15 [History Confirmed 03/20/18 Last Taken 03/11/17] duloxetine 60 mg capsule,delayed release 60 mg PO BID cap 10/02/15 [History Confirmed 03/20/18 Last Taken 03/12/17] nystatin 100,000 unit/gram topical powder 1 applic TOPICAL TID PRN #120 each 05/17 [Rx Confirmed 03/20/18 Last Taken 03/12/17] hydrocortisone 5 mg tablet 10 mg PO .COMPLEX 01/08/16 [History Confirmed Last Taken 03/12/17] cholecalciferol (vitamin D3) 5,000 unit capsule 5,000 unit PO QDAY cap [History Confirmed 03/20/18 Last Taken 03/12/17] morphine ER 30 mg tablet,extended release 30 mg PO Q12H 12/23/16 [History Confirmed 03/20/18 Last Taken 03/12/17] ibuprofen 200 mg capsule 600 mg PO QID cap 01/18/17 [History Confirmed Last Taken 03/12/17 12:00] empagliflozin 10 mg tablet 10 mg PO QDAY 04/21/17 [History Confirmed 03/20/18 Last Taken Unknown] valsartan 320 mg-hydrochlorothiazide 12.5 mg tablet 1 tab PO QDAY #90 tab [Rx Confirmed 03/20/18 Last Taken Unknown] metformin ER 1,000 mg 24 hr tablet,extended release 1,000 mg PO BID #120 tab 02/16 [Rx Confirmed 03/20/18 Last Taken Unknown] Medical - DS: Hosp Hospital course: Ms. Weiss is a 53 year old F with multiple medical issues presents to the emergency room for evaluation of not feeling well since 1 day. The patient notes that since yesterday she has been feeling cold associated with chills and rigors. She noted some redness in right leg which has worsened today. She has a history of recurrent cellulitis. The patient also reports that she had some nausea associated with the symptoms. She denies any abdominal pain or vomiting no diarrhea no urinary complaints. The patient's daughter called in to check on the patient today and noticed that she was confused. The patient was therefore brought to the emergency room for further evaluation. The patient does have history of severe infections in the past and the family was very concerned about the present episode. The patient has chronic headaches, and complains about pain from head to toe. She is on chronic pain medications hydrocodone and morphine and gabapentin. The patient however denies any new complaints besides listed above. On presentation to the emergency room the patient was febrile with a temperature of 101.3, tachycardic heart rate 113 blood pressure 152/103. Saturating 100% on room air respirations anywhere between 25-30. Labs showed leukocytosis WBC count of 21,100 hemoglobin 14.4 platelets 306. Sodium 128 potassium 3.6 bicarbonate 25 creatinine 0.8 glucose 189. Total bilirubin elevated at 1.2 AST 87 ALT 101 alk phos 141. Lactic acid 3.0. She had erythema in the right lower extremity DVT scan of the right lower extremity is reported as negative to me by the ER physician. EKG shows sinus tachycardia chest x-ray is reported as negative for acute infiltrates. Liver ultrasound was done shows enlarged liver CBD could not be seen gallbladder is absent. No intrahepatic biliary ductal dilatation. The patient is being admitted to the hospital for further management, she was given rocephin 1 gm and 2 L saline bolus Cellulitis/sepsis-the patient was treated with IV vancomycin and Rocephin. The patient responded to treatment very well. She will be discharged on oral Keflex and doxycycline to complete a 10-day course. At the time of discharge the microbiology is negative. WC count is back to normal. Lactic acidosis has resolved. Patient is hemodynamically stable afebrile tolerating p.o. diet well. The rest of the stay in the hospital has remained unremarkable. No changes are done to her chronic home medication list. Discharge diagnosis: Cellulitis/Sepsis - Time Spent with Patient Total time spent providing and/or coordinating discharge services: Less than 30 minutes Medical - DS: Exam - Constitutional Vitals: Vital Signs Temp Pulse Resp BP Pulse Ox 03/22/18 03:37 97.2 F 16 130/72 95 03/22/18 03:00 72 03/21/18 23:23 97.7 F 88 18 123/84 91 03/21/18 19:57 91 03/21/18 19:52 99.1 F H 03/21/18 19:37 99.1 F H 86 16 137/92 91 03/21/18 17:51 82 18 03/21/18 16:27 100.5 F H 88 20 154/95 94 03/21/18 16:25 100.5 F H 87 95 03/21/18 11:29 99.4 F H 87 18 126/79 93 03/21/18 11:28 99.4 F H 83 94 03/21/18 08:32 99.9 F H Intake and Output 03/21/18 03/22/18 03/22/18 21:59 05:59 13:59 Intake Total 2190 / 2190 500 / 500 Output Total 575 / 575 1575 / 1575 Balance 1615 / 1615 -1075 / -1075 Intake: IV 1000 / 1000 500 / 500 Vancomycin 1,500 mg In Sodium 500 / 500 Chloride 0.9% 500 ml @ 333.3 mls/hr IV Q12H [facility] Rx#: [id number] Oral 1190 / 1190 Output: Urine Catheter Amount 575 / 575 1575 / 1575 Other: Meal Breakfast Percent of Meal Consumed 75% Feeding Ability Independent Urine Appearance Clear Uretheral (Quiles) Clear Urine Color Light Mikayla Uretheral (Quiles) Light Mikayla Weight 361 lb 1.6 oz Additional comments: Constitutional; Afebrile, cooperative, alert, not in distress. Respiratory system: Air Entry equal on both sides, No crackles or wheezing, no rhonchi. CVS- Rate rhythm regular, S1,S2 heard, no gallop, no rub. Abdomen- Soft nontender abdomen, no organomegaly, no tenderness, no guarding or rigidity, [employer]- AOOx3, moving all extremities, Right lower extremity-edema present, however erythema is much better, warmth resolved. Clinically much improved compared to from the day of presentation Medical - DS: Data Labs on day of discharge: Labs from last 24 hours 03/22/18 03/22/18 03:34 03:34 WBC 6.6 RBC 4.00 Hgb 11.2 L Hct 34.8 L MCV 86.9 MCH 28.0 MCHC 32.3 RDW 15.2 H Plt Count 222 MPV 8.2 Gran % 74.6 Lymph % (Auto) 17.9 [place] % (Auto) 6.2 Eos % (Auto) 1.2 Baso % (Auto) 0.1 Gran # 4.9 Lymph # (Auto) 1.2 L [place] # (Auto) 0.4 Eos # (Auto) 0.1 Baso # (Auto) 0 Sodium 137 Potassium 3.7 Chloride 100 Carbon Dioxide 28 Anion Gap 9.0 BUN 11 Creatinine 0.6 GFR Calculation 103 Glucose 156 H Uric Acid 4.8 Calcium 8.5 L Phosphorus 2.7 Magnesium 2.1 Total Bilirubin 0.3 Direct Bilirubin < 0.2 GGT 224 H AST 30 ALT 60 H Alkaline Phosphatase 111 Lactate Dehydrogenase 192 Total Protein 6.1 Albumin 3.0 L Globulin 3.1 Albumin/Globulin Ratio 1.0 Triglycerides 200 H Preliminary micro results at discharge 03/20/18 12:18 Blood Culture - Preliminary Blood 03/20/18 12:18 Blood Culture - Preliminary Blood Medical - DS: A/P - Patient/Caregiver Discharge Instructions Activity: increase activity as tolerated Diet: Consistent Carbohydrate Additional Instructions: Take doxycycline 100 mg twice a day with food for 7 days. Take cephalexin 500 mg 4 times a day. Follow-up with primary care physician in 7 days. If you have any fever chest pain shortness of breath or any other acute concerns please go back to the emergency room. Please take all your medications as prescribed by previous provider. I have not made any changes - Follow up Plan Follow up with: Sid Day MD [Primary Care Provider] - Disposition: Home, Self-Care Prognosis: Fair Rehab Potential: Fair I certify that the patient requires SNF services: No Overall status at discharge: patient is progressing back to baseline Medical - DS: Qual - VTE Deep Vein Thrombosis/Pulmonary Embolism Present on Admission: No
[2018-03-22] MEDS ORDERED: HYDROCHLOROTHIAZIDE 12.5 MG CAPSULE PO SCH (09:00)
[2018-03-22] MEDS ORDERED: cefTRIAXone 2 GM in DEXTROSE 5% IN WATER 50 ML IV SCH (09:00)
[2018-03-22] MEDS ORDERED: OLMESARTAN MEDOXOMIL 20 MG TABLET PO SCH (09:00)
[2018-03-22] MEDS ORDERED: FLUCONAZOLE 100 MG TABLET PO SCH (09:00)
[2018-03-22] MEDS ORDERED: VITAMIN D3 5,000 UNIT CAPSULE PO SCH (09:00)
[2018-03-22] MEDS ORDERED: HYDROCORTISONE 10 MG TABLET PO ONE (09:07)
== END 2018-03-22 10:05 | disposition home or self-care (01) | DRG 872 ==
LOC: ED 11:57 → ICU 16:11
PROVIDERS: ADMIT Internal Medicine; ATTEND Internal Medicine
CPT/HCPCS: 97161; 97167; 99223; 99231; 99238; A6250; J0131; J0696; J1644; J1817; J2405; J3370; J3475; J7030; J7040; J7060; J7120

== ENCOUNTER 2020-09-17 11:43 | Inpatient (IN) ==
[2020-09-17] MEDS ORDERED: PIPERACILLIN SODIUM/TAZOBACTAM 4.5 GM in DEXTROSE 5% IN WATER 50 ML IV ONE (12:44)
[2020-09-17] MEDS ORDERED: VANCOMYCIN 2,000 MG in 0.9 % SODIUM CHLORIDE 500 ML IV ONE (12:44)
--- NOTE | 2020-09-17 13:12 | Internal Med History&Physical ---
HPI History of Present Illness Patient information: Note initiated : 09/17/20 at 1:06 pm Service Date, if different from initiated Date: [] Patient: Amber Weiss a 55 y/o F admitted on for Lt Foot Infection. Chief Complaint: [] History of present illness: Ms. Weiss is a 55 year old F Who presented to the ED last night with increased redness and swelling of her left foot and a white spot. Located on the ball of her foot. She was afebrile had a very mild leukocytosis. Vital signs are stable. Instead of being admitted she chose to follow-up with her [employer] in the morning she did with Dr. Mahajan. He evaluated her and felt she needed to be admitted for surgical I&D. The white spot opened up and started draining a white thick purulent substance. Review of Systems: Pertinent positives as above. Denies headache/fever/chills/nausea /vomiting/chest or abdominal pain/cough/dyspnea/diarrhea. Remaining 10 point review of system reviewed negative PFSH PFSH All Active Problems (Updated 09/17/20 @ 01:03 by Tyron Espinosa MD) Piriformis syndrome (Acute) Sciatica of right side (Acute) Diabetic infection of left foot (Acute) Type 2 diabetes mellitus with diabetic mononeuropathy (Acute) Chronic intractable pain (Acute) Bilateral sacroiliitis (Acute) Chronic SI joint pain (Acute) Cellulitis of lower extremity (Chronic) Sepsis (Chronic) Somatic dysfunction of rib (Chronic) Lumbago with sciatica, right side (Chronic) Thyroid nodule (Chronic) Essential hypertension (Chronic) Hyperlipidemia (Chronic) Hypovitaminosis D (Chronic) Renal mass (Chronic) UTI (urinary tract infection) (Chronic) Urinary tract infection (Chronic) Meningitis (Chronic) Acute bacterial meningitis (Chronic) Dermatitis of vulva (Chronic) Dermatitis associated with moisture (Chronic) 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) Candidiasis of genitalia in female (Chronic) Low back pain (Chronic) Secondary adrenal insufficiency (Chronic) Cellulitis (Chronic) Venous stasis dermatitis of right lower extremity (Chronic) Cellulitis (Chronic) Multiple thyroid nodules (Chronic) Sciatica (Chronic) Herniated disc (Chronic) DDD (degenerative disc disease) (Chronic) Bone spur of foot (Chronic) Plantar fasciitis, bilateral (Chronic) Bursitis of hip (Chronic) Neuropathy (Chronic) Fibromyalgia (Chronic) Osteoporosis (Chronic) Migraine (Chronic) Liver disease (Chronic) Focal nodular hyperplasia of liver (Chronic) Joint pain (Chronic) Insomnia (Chronic) High blood pressure (Chronic) Gallbladder problem (Chronic) Diabetes mellitus, type II (Chronic) Depression (Chronic) Daytime sleepiness (Chronic) Muscle pain (Chronic) Arthritis (Chronic) Anxiety (Chronic) Medical History Acute bacterial meningitis Anxiety Arthritis Bilateral sacroiliitis Bone spur of foot right Bursitis of hip bilateral Cellulitis Cellulitis Chronic intractable pain Chronic SI joint pain Daytime sleepiness DDD (degenerative disc disease) Depression Dermatitis associated with moisture Dermatitis of vulva Diabetes mellitus, type II Fibromyalgia Focal nodular hyperplasia of liver Gallbladder problem Herniated disc High blood pressure Insomnia Joint pain Liver disease Meningitis Migraine Muscle pain chronic 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 Protection dressings and off loading. Neuropathy Osteoporosis Plantar fasciitis, bilateral Sciatica Urinary tract infection UTI (urinary tract infection) Venous stasis dermatitis of right lower extremity Surgical History H/O adenoidectomy H/O hand surgery fingers rebroke and reset H/O shoulder surgery two scopes H/O: hysterectomy History of placement of ear tubes History of surgery of liver tumor on liver, removed half of liver Hx of cholecystectomy Previous section x2 S/P knee replacement bilateral knees replaced S/P right knee arthroscopy Family History Mother Arthritis Malignant neoplasm Diabetes mellitus Hypertension Migraine Cerebrovascular accident (CVA) Father Arthritis Dementia Hypertension Aunt Malignant neoplasm Cousin Myocardial Infarction Social History (Updated 03/22/19 @ 14:12 by Elvin Wang PA-C) marital status: alcohol intake frequency: does not drink substance use type: does not use MEDS/ALLERGIES Home Medications and Allergies Home Medications Medication Instructions Recorded Confirmed Type gabapentin 800 mg tablet 800 mg PO QID tab 08/07/15 09/17/20 History hydrocodone 10 mg-acetaminophen 1 tab PO QID 08/07/15 09/17/20 History 325 mg tablet duloxetine 60 mg capsule,delayed 60 mg PO BID cap 10/02/15 09/17/20 History release hydrocortisone 5 mg tablet 10 mg PO .COMPLEX 01/08/16 09/17/20 History cholecalciferol (vitamin D3) 125 5,000 unit PO QDAY cap 07/08/16 09/17/20 History mcg (5,000 unit) capsule ibuprofen 200 mg capsule 600 mg PO QID cap 01/18/17 09/17/20 History metformin 1,000 mg 24 hr 1,000 mg PO BID #120 tab 11/08/17 09/17/20 Rx tablet,extended release atorvastatin 40 mg tablet 40 mg PO QDAY 03/22/19 09/17/20 History fluconazole 100 mg tablet 100 mg PO QDAY 03/22/19 09/17/20 History glipizide 2.5 mg tablet, extended 20 mg PO BID tab 03/22/19 09/17/20 History release 24 hr baclofen 10 mg PO TID 09/02/20 09/17/20 History buprenorphine HCl 2 mg SUBLINGUAL TID 09/02/20 09/17/20 History pioglitazone 30 mg PO QDAY 09/17/20 09/17/20 History valsartan-hydrochlorothiazide 1 tab PO QAM 09/17/20 09/17/20 History Allergies Allergy/AdvReac Type Severity Reaction Status Date / Time Sulfa (Sulfonamide Allergy Severe Rash Verified 09/17/20 11:44 Antibiotics) EXAM Constitutional Vitals: Temp Pulse Resp BP Pulse Ox 96.7 F L 72 18 118/71 92 09/17/20 11:44 09/17/20 12:46 09/17/20 11:44 09/17/20 12:46 09/17/20 12:46 Exam: General: Alert, Awake, No acute Distress, obese Eyes/N/T: EOMI, PERRL, Head/Neck: neck supple, normocephalic atraumatic CV: RRR, No murmurs, normal s1/s2 Pulm: Clear b/l, no wheezing/rhonchi/rales Abd: soft, nontender, +BS x4 Ext: no clubbing/cyanosis, b/l LE edma R>L, open draining wound to ball of foot. erythema/edema Neuro: Alert, no focal deficits, moves all extremities, CN 2-12 grossly intact, symmetrical strength b/l upper/lower, sensations intact decreased lower extremities chronically Skin: warm/dry DATA Data Completed and Pending Labs: Labs from last 24 hours 09/17/20 09/17/20 12:58 12:58 WBC Pending RBC Pending Hgb Pending Hct Pending MCV Pending MCH Pending MCHC Pending RDW Pending Plt Count Pending MPV Pending Neut % (Auto) Pending Sodium Pending Potassium Pending Chloride Pending Carbon Dioxide Pending Anion Gap Pending BUN Pending Creatinine Pending GFR Calculation Pending Glucose Pending Calcium Pending Total Bilirubin Pending AST Pending ALT Pending Alkaline Phosphatase Pending Total Protein Pending Albumin Pending Globulin Pending Albumin/Globulin Ratio Pending A/P Narrative A/P Narrative: A: *Left foot diabetic wound infection/cellulitis/abscess: *DM w/neuropathy: *Anemia, chronic *HTN/HLD: *Depression/anxiety: *Adrenal insufficiency: *Obesity: * P: -Dr. Mahajan from podiatry for I&D -Antibiotics, pending BC/WC, MRSA screen -wound care -SSI -Continue home BP meds -Continue home psych meds - -DT/OT -ppx: heparin full code Time Spent With Patient Time: Total time spent is greater than 50% in coordination of care (as documented) at patient's floor/unit and/or counseling patient:
[2020-09-17 13:25] LABS: Basophils # (Auto) 0.05 K/mcL (0.00-0.20); Basophils % (Auto) 0.5 % (0.0-2.0); Eosinophils # (Auto) 0.17 K/mcL (0.00-0.70); Eosinophils % (Auto) 1.6 % (0.0-7.0); Hematocrit 30.2 % (36.0-48.0); Hemoglobin 9.4 g/dL (12.0-15.0); Lymphocytes # (Auto) 1.61 K/mcL (1.50-4.80); Lymphocytes % (Auto) 14.7 % (15.0-49.0); Mean Cell Volume 90.4 fL (80.0-100.0); Mean Corpuscular HGB Conc 31.1 g/dL (31.0-36.0); Monocytes # (Auto) 0.95 K/mcL (0.10-0.90); Monocytes % (Auto) 8.7 % (1.0-12.0); Neutrophils % (Auto) 74.5 % (38.0-78.0); Platelet Count 320 K/mcL (140-440); RBC 3.34 M/mcL (4.00-5.20); Red Cell Distribution Width 16.6 % (11.5-14.5); WBC 10.9 K/mcL (4.5-11.0)
--- NOTE | 2020-09-17 13:38 | Emergency Department Note ---
Extremity Problem HPI <Rylee Monge PA-C - Last Filed: 09/17/20 14:13> General Chief complaint: Extremity Problem,Nontraumatic Stated complaint: Left foot infection Time Seen by Provider: 09/17/20 12:05 Source: patient Mode of arrival: ambulatory Limitations: no limitations History of Present Illness HPI Narrative: This 55-year-old female seen in our ER last night for left diabetic foot wound. She was given IV vancomycin x1 dose and discharged to follow-up with her unemployment claims adjudicator, Dr. Mahajan, today. He drained the foot and sent a wound culture off, then advised her to come to the ER for admission and planned I&D tomorrow. Blood cultures x2 were done last night. She currently denies pain in the left foot. Had her [employer] vaccine in July, currently without Covid symptoms. Patient also has a history of chronic pain and is on buprenorphine. Related Data Home Medications Medication Instructions Recorded Confirmed gabapentin 800 mg tablet 800 mg PO QID tab 08/07/15 09/17/20 hydrocodone 10 mg-acetaminophen 1 tab PO QID 08/07/15 09/17/20 325 mg tablet duloxetine 60 mg capsule,delayed 60 mg PO BID cap 10/02/15 09/17/20 release hydrocortisone 5 mg tablet 10 mg PO .COMPLEX 01/08/16 09/17/20 cholecalciferol (vitamin D3) 125 5,000 unit PO QDAY cap 07/08/16 09/17/20 mcg (5,000 unit) capsule ibuprofen 200 mg capsule 600 mg PO QID cap 01/18/17 09/17/20 atorvastatin 40 mg tablet 40 mg PO QDAY 03/22/19 09/17/20 fluconazole 100 mg tablet 100 mg PO QDAY 03/22/19 09/17/20 glipizide 2.5 mg tablet, extended 20 mg PO BID tab 03/22/19 09/17/20 release 24 hr baclofen 10 mg PO TID 09/02/20 09/17/20 buprenorphine HCl 2 mg SUBLINGUAL TID 09/02/20 09/17/20 pioglitazone 30 mg PO QDAY 09/17/20 09/17/20 valsartan-hydrochlorothiazide 1 tab PO QAM 09/17/20 09/17/20 Previous Rx's Medication Instructions Recorded metformin 1,000 mg 24 hr 1,000 mg PO BID #120 tab 07/10/18 tablet,extended release Allergies Allergy/AdvReac Type Severity Reaction Status Date / Time Sulfa (Sulfonamide Allergy Mild Rash Verified 09/18/20 06:35 Antibiotics) Review of Systems <Rylee Monge PA-C - Last Filed: 09/17/20 14:13> ROS ROS Narrative: Narrative: All systems ED: reviewed and negative except as stated. PFSH <Rylee Monge PA-C - Last Filed: 09/17/20 14:13> Narrative Patient History Narrative: Narrative: Medical/Surgical/Family History All Active Problems (Updated 09/17/20 @ 14:13 by Rylee Monge PA-C) Piriformis syndrome (Acute) Sciatica of right side (Acute) Diabetic infection of left foot (Acute) Diabetic foot ulcer associated with type 2 diabetes mellitus (Acute) Cellulitis and abscess of foot (Acute) Type 2 diabetes mellitus with diabetic mononeuropathy (Acute) Chronic intractable pain (Acute) Bilateral sacroiliitis (Acute) Chronic SI joint pain (Acute) Cellulitis of lower extremity (Chronic) Sepsis (Chronic) Somatic dysfunction of rib (Chronic) Lumbago with sciatica, right side (Chronic) Thyroid nodule (Chronic) Essential hypertension (Chronic) Hyperlipidemia (Chronic) Hypovitaminosis D (Chronic) Renal mass (Chronic) UTI (urinary tract infection) (Chronic) Urinary tract infection (Chronic) Meningitis (Chronic) Acute bacterial meningitis (Chronic) Dermatitis of vulva (Chronic) Dermatitis associated with moisture (Chronic) 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) Candidiasis of genitalia in female (Chronic) Low back pain (Chronic) Secondary adrenal insufficiency (Chronic) Cellulitis (Chronic) Venous stasis dermatitis of right lower extremity (Chronic) Cellulitis (Chronic) Multiple thyroid nodules (Chronic) Sciatica (Chronic) Herniated disc (Chronic) DDD (degenerative disc disease) (Chronic) Bone spur of foot (Chronic) Plantar fasciitis, bilateral (Chronic) Bursitis of hip (Chronic) Neuropathy (Chronic) Fibromyalgia (Chronic) Osteoporosis (Chronic) Migraine (Chronic) Liver disease (Chronic) Focal nodular hyperplasia of liver (Chronic) Joint pain (Chronic) Insomnia (Chronic) High blood pressure (Chronic) Gallbladder problem (Chronic) Diabetes mellitus, type II (Chronic) Depression (Chronic) Daytime sleepiness (Chronic) Muscle pain (Chronic) Arthritis (Chronic) Anxiety (Chronic) Medical History Acute bacterial meningitis Anxiety Arthritis Bilateral sacroiliitis Bone spur of foot right Bursitis of hip bilateral Cellulitis Cellulitis Chronic intractable pain Chronic SI joint pain Daytime sleepiness DDD (degenerative disc disease) Depression Dermatitis associated with moisture Dermatitis of vulva Diabetes mellitus, type II Fibromyalgia Focal nodular hyperplasia of liver Gallbladder problem Herniated disc High blood pressure Insomnia Joint pain Liver disease Meningitis Migraine Muscle pain chronic 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 Protection dressings and off loading. Neuropathy Osteoporosis Plantar fasciitis, bilateral Sciatica Urinary tract infection UTI (urinary tract infection) Venous stasis dermatitis of right lower extremity Surgical History H/O adenoidectomy H/O hand surgery fingers rebroke and reset H/O shoulder surgery two scopes H/O: hysterectomy History of placement of ear tubes History of surgery of liver tumor on liver, removed half of liver Hx of cholecystectomy Previous section x2 S/P knee replacement bilateral knees replaced S/P right knee arthroscopy Family History Mother Arthritis Malignant neoplasm Diabetes mellitus Hypertension Migraine Cerebrovascular accident (CVA) Father Arthritis Dementia Hypertension Aunt Malignant neoplasm Cousin Myocardial Infarction Social History Smoking Status: Never smoker Alcohol Intake Frequency: does not drink Substance Use: does not use Exam <Rylee Monge PA-C - Last Filed: 09/17/20 14:13> Narrative Narrative: General: AOx3, NAD, nontoxic appearing. Pleasant and conversant. HEENT: PERRLA, EOMI, normocephalic. Moist mucous membranes. Normal facies and normal dentition. Chest: Symmetric, no pain to palpation Respiratory: Lungs clear to auscultation bilaterally. No respiratory distress. Unlabored breathing. Heart: Regular rate and rhythm, no murmurs/clicks/rubs. Extremities: Warm and well perfused. Left foot is covered and not examined Neuro: No focal deficits. Cranial nerves II-XII normal. Skin: Warm dry Psych: Normal mood and affect Heme/Lymph: No bruising General Limitations: no limitations Course <Rylee Monge PA-C - Last Filed: 09/17/20 14:13> Course Course Narrative: 55-year-old female with infected diabetic foot presents for evaluation and admission for surgical debridement Reevaluation(s) Reevaluation #1: Rapid Covid swab, basic labs if they have not already been done, EKG in preparation for surgery. Dr. Stanley, hospitalist has been notified and will come see the patient shortly for admission. Vital Signs Vital signs: Vital Signs Temperature 96.7 F L 09/17/20 11:44 Pulse Rate 89 09/17/20 11:44 Respiratory Rate 18 09/17/20 11:44 Blood Pressure 163/78 09/17/20 11:44 Pulse Oximetry (%) 96 09/17/20 11:44 Temperature 96.5 F L 09/18/20 08:00 Pulse Rate 64 09/18/20 08:00 Respiratory Rate 12 09/18/20 08:00 Blood Pressure 125/80 09/18/20 08:00 Pulse Oximetry (%) 97 09/18/20 08:00 <David Christie MD - Last Filed: 09/18/20 09:17> Vital Signs Vital signs: Vital Signs Temperature 96.7 F L 09/17/20 11:44 Pulse Rate 89 09/17/20 11:44 Respiratory Rate 18 09/17/20 11:44 Blood Pressure 163/78 09/17/20 11:44 Pulse Oximetry (%) 96 09/17/20 11:44 Temperature 96.5 F L 09/18/20 08:00 Pulse Rate 64 09/18/20 08:00 Respiratory Rate 12 09/18/20 08:00 Blood Pressure 125/80 09/18/20 08:00 Pulse Oximetry (%) 97 09/18/20 08:00 [facility] <Rylee Monge PA-C - Last Filed: 09/17/20 14:13> MDM Narrative Medical decision making narrative: Infected diabetic right foot Patient is being admitted with plan for surgical debridement tomorrow. I spoke with the hospitalist and he has asked me to give Zosyn and vancomycin. In addition she is being screened for Covid per hospital protocol. Currently denying pain so no pain medications have been ordered. Lab Data Result diagrams: 09/18/20 05:15 09/18/20 05:15 Labs: Lab Results 09/17/20 09/17/20 Range/Units 12:58 12:58 WBC 10.9 (4.5-11.0) K/mcL RBC 3.34 L (4.00-5.20) M/mcL Hgb 9.4 L (12.0-15.0) g/dL Hct 30.2 L (36.0-48.0) % MCV 90.4 (80.0-100.0) fL MCH 28.1 (26.0-34.0) pg MCHC 31.1 (31.0-36.0) g/dL RDW 16.6 H (11.5-14.5) % Plt Count 320 (140-440) K/mcL MPV 9.0 (7.4-10.4) fL Neut % (Auto) 74.5 (38.0-78.0) % Lymph % (Auto) 14.7 L (15.0-49.0) % [place]aca % (Auto) 8.7 (1.0-12.0) % Eos % (Auto) 1.6 (0.0-7.0) % Baso % (Auto) 0.5 (0.0-2.0) % Lymph # (Auto) 1.61 (1.50-4.80) K/mcL [place] # (Auto) 0.95 H (0.10-0.90) K/mcL Eos # (Auto) 0.17 (0.00-0.70) K/mcL Baso # (Auto) 0.05 (0.00-0.20) K/mcL Absolute Neutrophils 8.15 H (1.80-8.00) K/mcL Sodium 138 (133-145) mmol/L Potassium 4.2 (3.3-5.1) mmol/L Chloride 99 (96-108) mmol/L Carbon Dioxide 32 H (22-30) mmol/L Anion Gap 7.0 L (8.0-16.0) BUN 20 (6-20) mg/dL Creatinine 0.7 (0.6-1.1) mg/dL GFR Calculation 96 Glucose 96 (70-105) mg/dL Calcium 9.2 (8.6-10.4) mg/dL Total Bilirubin 0.5 (0.1-1.0) mg/dL AST 18 (<32) U/L ALT 16 (<40) U/L Alkaline Phosphatase 90 (39-117) U/L Total Protein 6.6 (5.9-8.4) gm/dL Albumin 3.6 (3.2-5.2) gm/dL Globulin 3.0 (2.2-3.7) gm/dL Albumin/Globulin Ratio 1.2 (1.0-2.3) ED POC Tests ED POC Tests: RUTHY - SARS Antigen Negative <David Christie MD - Last Filed: 09/18/20 09:17> Lab Data Labs: Lab Results 09/17/20 09/17/20 Range/Units 12:58 12:58 WBC 10.9 (4.5-11.0) K/mcL RBC 3.34 L (4.00-5.20) M/mcL Hgb 9.4 L (12.0-15.0) g/dL Hct 30.2 L (36.0-48.0) % MCV 90.4 (80.0-100.0) fL MCH 28.1 (26.0-34.0) pg MCHC 31.1 (31.0-36.0) g/dL RDW 16.6 H (11.5-14.5) % Plt Count 320 (140-440) K/mcL MPV 9.0 (7.4-10.4) fL Neut % (Auto) 74.5 (38.0-78.0) % Lymph % (Auto) 14.7 L (15.0-49.0) % Baca % (Auto) 8.7 (1.0-12.0) % Eos % (Auto) 1.6 (0.0-7.0) % Baso % (Auto) 0.5 (0.0-2.0) % Lymph # (Auto) 1.61 (1.50-4.80) K/mcL [place] # (Auto) 0.95 H (0.10-0.90) K/mcL Eos # (Auto) 0.17 (0.00-0.70) K/mcL Baso # (Auto) 0.05 (0.00-0.20) K/mcL Absolute Neutrophils 8.15 H (1.80-8.00) K/mcL Sodium 138 (133-145) mmol/L Potassium 4.2 (3.3-5.1) mmol/L Chloride 99 (96-108) mmol/L Carbon Dioxide 32 H (22-30) mmol/L Anion Gap 7.0 L (8.0-16.0) BUN 20 (6-20) mg/dL Creatinine 0.7 (0.6-1.1) mg/dL GFR Calculation 96 Glucose 96 (70-105) mg/dL Calcium 9.2 (8.6-10.4) mg/dL Total Bilirubin 0.5 (0.1-1.0) mg/dL AST 18 (<32) U/L ALT 16 (<40) U/L Alkaline Phosphatase 90 (39-117) U/L Total Protein 6.6 (5.9-8.4) gm/dL Albumin 3.6 (3.2-5.2) gm/dL Globulin 3.0 (2.2-3.7) gm/dL Albumin/Globulin Ratio 1.2 (1.0-2.3) ED POC Tests ED POC Tests: RUTHY - SARS Antigen Negative Discharge Plan Patient/Caregiver Discharge Instructions Pt seen by PERSONAL COMPUTER NETWORK ENGINEER/PA only: Yes Clinical Impression: Diabetic foot ulcer associated with type 2 diabetes mellitus, Cellulitis and abscess of foot Patient Disposition: Xfer As Inpt ([facility]) Condition: Good Discharge Date/Time: 09/17/20 14:53 Discharge Location: [facility]
[2020-09-17 13:47] LABS: ALT/SGPT 16 U/L (<40); AST/SGOT 18 U/L (<32); Albumin 3.6 gm/dL (3.2-5.2); Albumin/Globulin Ratio 1.2 (1.0-2.3); Alkaline Phosphatase 90 U/L (39-117); Bilirubin,Total 0.5 mg/dL (0.1-1.0); Blood Urea Nitrogen 20 mg/dL (6-20); Calcium 9.2 mg/dL (8.6-10.4); Carbon Dioxide 32 mmol/L (22-30); Chloride 99 mmol/L (96-108); Glomerular Filtration Rate 96; Glucose 96 mg/dL (70-105)
[2020-09-17] MEDS ORDERED: ACETAMINOPHEN 325 MG TABLET PO PRN (15:10)
[2020-09-17] MEDS ORDERED: DEXTROSE 50% 50 ML VIAL IV PRN (15:10)
[2020-09-17] MEDS ORDERED: VANCOMYCIN PER PHARMACY IV SCH (15:10)
[2020-09-17] MEDS ORDERED: ONDANSETRON 4 MG/2 ML VIAL IV PRN ×2 (15:10)
[2020-09-17] MEDS ORDERED: POTASSIUM CHLORIDE 20 MEQ TABLET PO PRN ×4 (15:10)
[2020-09-17] MEDS ORDERED: POTASSIUM CHLORIDE 40 MEQ in DEXTROSE 5% IN WATER 500 ML IV PRN ×2 (15:10)
[2020-09-17] MEDS ORDERED: PIPERACILLIN SODIUM/TAZOBACTAM 3.375 GM in DEXTROSE 5% IN WATER 50 ML IV SCH (15:10)
[2020-09-17] MEDS ORDERED: MAGNESIUM SULFATE 2 GM/50 ML BAG IV PRN ×2 (15:10)
[2020-09-17] MEDS ORDERED: POLYETHYLENE GLYCOL 3350 17 GM PACKET PO PRN (15:10)
[2020-09-17] MEDS ORDERED: LACTULOSE 20 GM/30 ML ORAL.SOL PO PRN (15:10)
[2020-09-17] MEDS ORDERED: DEXTROSE 31 GM ORAL.SUSP PO PRN (15:10)
[2020-09-17] MEDS ORDERED: SENNOSIDES 1 TABLET PO PRN (15:10)
[2020-09-17] MEDS ORDERED: IPRATROPIUM/ALBUTEROL 3 ML AMPUL.NEB NEB PRN (15:10)
[2020-09-17] MEDS: GABAPENTIN 400 MG CAPSULE PO SCH ×2 (16:54→21:04)
[2020-09-17] MEDS: 0.9 % SODIUM CHLORIDE 10 ML SYRINGE IV SCH ×2 (16:56→22:37)
[2020-09-17] MEDS: HYDROCORTISONE 10 MG TABLET PO SCH (16:56)
[2020-09-17] MEDS: BACLOFEN 10 MG TABLET PO SCH ×2 (16:56→21:04)
[2020-09-17] MEDS: metFORMIN 500 MG TAB.XL.24H PO SCH (17:03)
[2020-09-17] MEDS: HYDROcodone/APAP 10/325MG TABLET PO PRN (17:08)
[2020-09-17] MEDS: INSULIN LISPRO 1 UNIT/0.01 ML UNIT SQ SCH ×2 (17:09→21:04)
[2020-09-17] MEDS: PIPERACILLIN SODIUM/TAZOBACTAM 3.375 GM in DEXTROSE 5% IN WATER 50 ML IV SCH (17:37)
[2020-09-17] MEDS ORDERED: HEPARIN 5,000 UNIT/ML VIAL SQ SCH (21:00)
[2020-09-17] MEDS: DULoxetine 30 MG CAPSULE PO SCH (21:04)
[2020-09-17] MEDS: DOCUSATE SODIUM 100 MG CAPSULE PO SCH (21:04)
[2020-09-17] MEDS ORDERED: VANCOMYCIN 500 MG in 0.9 % SODIUM CHLORIDE 100 ML IV ONE (23:00)
[2020-09-18] MEDS: PIPERACILLIN SODIUM/TAZOBACTAM 3.375 GM in DEXTROSE 5% IN WATER 50 ML IV SCH ×4 (00:11→17:01)
[2020-09-18] MEDS: HYDROcodone/APAP 10/325MG TABLET PO PRN (04:35)
[2020-09-18] MEDS: 0.9 % SODIUM CHLORIDE 10 ML SYRINGE IV SCH ×3 (05:11→20:23)
--- NOTE | 2020-09-18 07:11 | Internal Med Progress Note ---
SUBJECTIVE Subjective Patient information: Note initiated : 09/18/20 at 7:08 am Service Date, if different from initiated Date: [] Patient: Amber Weiss 55 y/o F admitted on 09/17/20 for Lt Foot Infection. Chief Complaint: [] Interval history: History of present illness: Ms. Weiss is a 55 year old F Who presented to the ED last night with increased redness and swelling of her left foot and a white spot. Located on the ball of her foot. She was afebrile had a very mild leukocytosis. Vital signs are stable. Instead of being admitted she chose to follow-up with her line inspector in the morning she did with Dr. Mahajan. He evaluated her and felt she needed to be admitted for surgical I&D. The white spot opened up and started draining a white thick purulent substance. 09/18 When I asked if she had a good sleep she laughed at me, but seemed in good spirits this morning. No new pains or complaints. Scheduled for I&D today. Review of Systems: denies headache/fever/chills/nausea/vomiting/chest or abdominal pain/cough/dyspnea/diarrhea. Otherwise see above. Constitutional Vitals: Vital Signs Temp Pulse Resp BP Pulse Ox 99.1 F H 89 12 105/58 90 09/18/20 04:19 09/18/20 04:19 09/18/20 04:19 09/18/20 04:19 09/18/20 04:19 Period Temp Pulse Resp BP Sys/Schultz Pulse Ox Last 24 Hr 96.7 F-99.2 F 65-93 12-18 105-163/58-79 90-97 Intake and Output 09/17/20 09/18/20 09/18/20 21:59 05:59 13:59 Intake Total 900 450 Output Total 750 Balance 900 -300 Weight 184.93 kg Intake & Output: Intake & Output 09/17/20 09/18/20 09/18/20 21:59 05:59 13:59 Intake Total 900 450 Output Total 750 Balance 900 -300 Weight 184.93 kg Intake: IV 550 250 Zosyn 3.375 gm In Dextrose 5% 150 in Water 50 ml @ 100 mls/hr IV Q6H [facility] Rx#:[id number] Zosyn 4.5 gm In Dextrose 5% in 50 Water 50 ml @ 100 mls/hr IV ONCE ONE Rx#:[id number] Vancomycin 500 mg In Sodium 100 Chloride 0.9% 100 ml @ 100 mls/ hr IV ONCE ONE Rx#:[id number] Vancomycin 2,000 mg In Sodium 500 Chloride 0.9% 500 ml @ 250 mls/ hr IV ONCE ONE Rx#:[id number] Oral 350 200 Output: Void Amount 750 Other: Meal Dinner Percent of Meal Consumed 100% Feeding Ability Independent Urine Appearance Clear Urine Color Bright Yellow Urine Odor Normal # Voids 1 Exam: General: Alert, Awake, No acute Distress, obese Eyes/N/T: EOMI, Head/Neck: neck supple, CV: RRR, No murmurs, Pulm: Clear b/l, no wheezing/rhonchi/rales Abd: soft, nontender, +BS x4 Ext: no clubbing/cyanosis, b/l LE edma R>L, open draining wound to ball of foot. erythema/edema Neuro: Alert, no focal deficits, moves all extremities, Skin: warm/dry OBJ DATA Labs CBC & Chem 7: 09/18/20 05:15 09/17/20 12:58 Labs: Abnormal Lab Results 09/17/20 09/17/20 12:58 12:58 RBC 3.34 L Hgb 9.4 L Hct 30.2 L RDW 16.6 H Lymph % (Auto) 14.7 L Blair # (Auto) 0.95 H Absolute Neutrophils 8.15 H Carbon Dioxide 32 H Anion Gap 7.0 L Meds: Medications Acetaminophen (Acetaminophen 325 Mg Tablet) 650 mg PO Q6HP PRN PRN Reason: PAIN/FEVER > 101 Hydrocodone Bitart/Acetaminophen (Hydrocodone/Apap 10/325mg Tablet) 1 tab PO QIDP PRN; Protocol PRN Reason: Pain Last Admin: 09/18/20 04:35 Dose: 1 tab Documented by: Albuterol/Ipratropium (Ipratropium/Albuterol 3 Ml Ampul.Neb) 3 ml NEB Q4HP PRN PRN Reason: Shortness Of Breath Atorvastatin Calcium (Atorvastatin 40 Mg Tablet) 40 mg PO QDAY LELO Baclofen (Baclofen 10 Mg Tablet) 10 mg PO TID LELO Last Admin: 09/17/20 21:04 Dose: 10 mg Documented by: Dextrose (Dextrose 50% 50 Ml Vial) 0 ml IV UD PRN PRN Reason: Hypoglycemia Diagnostic Test (Pha) (Accu-Chek 1 Each Strip) 1 each FS ACHS [facility] Last Admin: 09/17/20 21:04 Dose: 1 each Documented by: Docusate Sodium (Docusate Sodium 100 Mg Capsule) 100 mg PO BID [facility] Last Admin: 09/17/20 21:04 Dose: 100 mg Documented by: Duloxetine HCl (Duloxetine 30 Mg Capsule) 60 mg PO BID [facility] Last Admin: 09/17/20 21:04 Dose: 60 mg Documented by: Gabapentin (Gabapentin 400 Mg Capsule) 800 mg PO QID [facility] Last Admin: 09/17/20 21:04 Dose: 800 mg Documented by: Glucose (Dextrose 31 Gm Oral.Susp) 15 gm PO PRN PRN PRN Reason: Hypoglycemia Hydrochlorothiazide (Hydrochlorothiazide 12.5 Mg Capsule) 12.5 mg PO DAILY [facility] Hydrocortisone (Hydrocortisone 10 Mg Tablet) 5 mg PO QPMCC [facility] Last Admin: 09/17/20 16:56 Dose: 5 mg Documented by: [facility]cortis[facility] ([facility] 10 Mg [facility]) [facility] Potassium Chloride 40 meq/ (Dextrose) 520 mls @ 130 mls/hr IV UD PRN PRN Reason: Potassium < 3 Magnesium Sulfate (Magnesium Sulfate) 2 gm in 50 mls @ 50 mls/hr IV UD PRN PRN Reason: Magnesium </= 1.6 Piperacillin Sod/Tazobactam (Sod 3.375 gm/ Dextrose) 50 mls @ 100 mls/hr IV Q6H [facility]; Protocol Last Infusion: 09/18/20 05:48 Dose: Infused Documented by: Vancomycin HCl 1,500 mg/ (Sodium Chloride) 500 mls @ 333.3 mls/hr IV Q12H [facility] Insulin Human Lispro (Insulin Lispro 1 Unit/0.01 Ml Unit) [address] [facility]; Protocol Last Admin: 09/17/20 21:04 Dose: Not Given Documented by: Lactulose (Lactulose 20 Gm/30 Ml Oral.Dione) 20 gm PO DAILYP PRN PRN Reason: Constipation Metformin HCl (Metformin 500 Mg Tab.Xl.24h) 1,000 mg PO BIDCC [facility] Last Admin: 09/17/20 17:03 Dose: 1,000 mg Documented by: Buprenorphine ( (Subutex) 8 Mg Tab) 2 mg PO TID [facility] Last Admin: 09/17/20 21:09 Dose: 2 mg Documented by: Olmesartan (Olmesartan Medoxomil 20 Mg Tablet) 40 mg PO DAILY [facility] Ondansetron HCl (Ondansetron 4 Mg/2 Ml Vial) 4 mg IV Q4HP PRN PRN Reason: Nausea And Vomiting Polyethylene Glycol (Polyethylene Glycol 3350 17 Gm Packet) 17 gm PO DAILYP PRN PRN Reason: Constipation Potassium Chloride (Potassium Chloride 20 Meq Tablet) 40 meq PO UD PRN PRN Reason: Potssium is 3-3.5 Potassium Chloride (Potassium Chloride 20 Meq Tablet) 40 meq PO UD PRN PRN Reason: Potassium < 3 Senna (Sennosides 1 Tablet) 2 tab PO DAILYP PRN PRN Reason: Constipation Sodium Chloride (0.9 % Sodium Chloride 10 Ml Syringe) 10 ml IV Q8 [facility] Last Admin: 09/18/20 05:11 Dose: 10 ml Documented by: Vancomycin HCl (Vancomycin Per Pharmacy) 1 order IV UD [facility]; Protocol A/P Narrative A/P Narrative: A: *Left foot diabetic wound infection/cellulitis/abscess: *DM w/neuropathy: *Anemia, chronic *HTN/HLD: *Depression/anxiety: *Adrenal insufficiency: *Obesity: * P: -Dr. Mahajan from podiatry for I&D -Antibiotics, pending BC/WC, d/c vanco -wound care -SSI -Continue home BP meds -Continue home psych meds - -PT/OT -ppx: heparin full code Time Spent With Patient Time: Total time spent is greater than 50% in coordination of care (as documented) at patient's floor/unit and/or counseling patient: QUALITY VTE Deep Vein Thrombosis/Pulmonary Embolism Present on Admission: No
[2020-09-18 07:48] LABS: Basophils # (Auto) 0.04 K/mcL (0.00-0.20); Basophils % (Auto) 0.4 % (0.0-2.0); Eosinophils # (Auto) 0.21 K/mcL (0.00-0.70); Eosinophils % (Auto) 2.3 % (0.0-7.0); Hematocrit 29.5 % (36.0-48.0); Hemoglobin 9.2 g/dL (12.0-15.0); Lymphocytes # (Auto) 2.01 K/mcL (1.50-4.80); Lymphocytes % (Auto) 22.1 % (15.0-49.0); Mean Cell Volume 89.4 fL (80.0-100.0); Mean Corpuscular HGB Conc 31.2 g/dL (31.0-36.0); Mean Platelet Volume 9.3 fL (7.4-10.4); Monocytes # (Auto) 0.75 K/mcL (0.10-0.90); Monocytes % (Auto) 8.2 % (1.0-12.0); Platelet Count 346 K/mcL (140-440); Red Cell Distribution Width 16.7 % (11.5-14.5); WBC 9.1 K/mcL (4.5-11.0)
[2020-09-18] MEDS: ATORVASTATIN 40 MG TABLET PO SCH (07:49)
[2020-09-18] MEDS: DOCUSATE SODIUM 100 MG CAPSULE PO SCH ×2 (07:49→20:23)
[2020-09-18] MEDS: GABAPENTIN 400 MG CAPSULE PO SCH ×4 (07:49→20:23)
[2020-09-18] MEDS: HYDROCHLOROTHIAZIDE 12.5 MG CAPSULE PO SCH (07:49)
[2020-09-18] MEDS: DULoxetine 30 MG CAPSULE PO SCH ×2 (07:49→20:23)
[2020-09-18] MEDS: BACLOFEN 10 MG TABLET PO SCH ×3 (07:49→20:23)
[2020-09-18] MEDS: OLMESARTAN MEDOXOMIL 20 MG TABLET PO SCH (07:49)
[2020-09-18] MEDS: HYDROCORTISONE 10 MG TABLET PO SCH ×2 (07:50→17:01)
[2020-09-18] MEDS: INSULIN LISPRO 1 UNIT/0.01 ML UNIT SQ SCH ×4 (07:50→20:22)
[2020-09-18] MEDS: metFORMIN 500 MG TAB.XL.24H PO SCH ×2 (07:51→17:01)
[2020-09-18 07:59] LABS: ALT/SGPT 15 U/L (<40); AST/SGOT 16 U/L (<32); Albumin 3.4 gm/dL (3.2-5.2); Albumin/Globulin Ratio 1.1 (1.0-2.3); Alkaline Phosphatase 93 U/L (39-117); Bilirubin,Direct < 0.2 mg/dL (0-0.3); Bilirubin,Total 0.5 mg/dL (0.1-1.0); Blood Urea Nitrogen 17 mg/dL (6-20); Calcium 9.7 mg/dL (8.6-10.4); Carbon Dioxide 30 mmol/L (22-30); Chloride 98 mmol/L (96-108); Globulin 3.1 gm/dL (2.2-3.7); Glomerular Filtration Rate 101; Glucose 89 mg/dL (70-105); Lactate Dehydrogenase 241 U/L (135-225); Phosphorous 3.9 mg/dL (2.5-4.5); Triglycerides 87 mg/dL (<150); Uric Acid 5.4 mg/dL (2.5-8.0)
[2020-09-18 08:12] LABS: Prothrombin Time 13.6 sec (11.9-14.5)
[2020-09-18] MEDS ORDERED: VANCOMYCIN 1,500 MG in 0.9 % SODIUM CHLORIDE 500 ML IV SCH (09:00)
[2020-09-18] MEDS ORDERED: VALSARTAN HYDROCHLOROTHIAZIDE PO SCH (09:00)
--- NOTE | 2020-09-18 09:08 | Orthopedic Consult Note ---
HPI Data of Consult Primary Care Provider: Luis Fernando Gonsalez MD Consult Narrative cc:: CC: Buck Stanley [facility] All Active Problems (Updated 09/17/20 @ 14:13 by Rylee Monge PA-C) Piriformis syndrome (Acute) Sciatica of right side (Acute) Diabetic infection of left foot (Acute) Diabetic foot ulcer associated with type 2 diabetes mellitus (Acute) Cellulitis and abscess of foot (Acute) Type 2 diabetes mellitus with diabetic mononeuropathy (Acute) Chronic intractable pain (Acute) Bilateral sacroiliitis (Acute) Chronic SI joint pain (Acute) Cellulitis of lower extremity (Chronic) Sepsis (Chronic) Somatic dysfunction of rib (Chronic) Lumbago with sciatica, right side (Chronic) Thyroid nodule (Chronic) Essential hypertension (Chronic) Hyperlipidemia (Chronic) Hypovitaminosis D (Chronic) Renal mass (Chronic) UTI (urinary tract infection) (Chronic) Urinary tract infection (Chronic) Meningitis (Chronic) Acute bacterial meningitis (Chronic) Dermatitis of vulva (Chronic) Dermatitis associated with moisture (Chronic) 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) Candidiasis of genitalia in female (Chronic) Low back pain (Chronic) Secondary adrenal insufficiency (Chronic) Cellulitis (Chronic) Venous stasis dermatitis of right lower extremity (Chronic) Cellulitis (Chronic) Multiple thyroid nodules (Chronic) Sciatica (Chronic) Herniated disc (Chronic) DDD (degenerative disc disease) (Chronic) Bone spur of foot (Chronic) Plantar fasciitis, bilateral (Chronic) Bursitis of hip (Chronic) Neuropathy (Chronic) Fibromyalgia (Chronic) Osteoporosis (Chronic) Migraine (Chronic) Liver disease (Chronic) Focal nodular hyperplasia of liver (Chronic) Joint pain (Chronic) Insomnia (Chronic) High blood pressure (Chronic) Gallbladder problem (Chronic) Diabetes mellitus, type II (Chronic) Depression (Chronic) Daytime sleepiness (Chronic) Muscle pain (Chronic) Arthritis (Chronic) Anxiety (Chronic) Medical History Acute bacterial meningitis Anxiety Arthritis Bilateral sacroiliitis Bone spur of foot right Bursitis of hip bilateral Cellulitis Cellulitis Chronic intractable pain Chronic SI joint pain Daytime sleepiness DDD (degenerative disc disease) Depression Dermatitis associated with moisture Dermatitis of vulva Diabetes mellitus, type II Fibromyalgia Focal nodular hyperplasia of liver Gallbladder problem Herniated disc High blood pressure Insomnia Joint pain Liver disease Meningitis Migraine Muscle pain chronic 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 Protection dressings and off loading. Neuropathy Osteoporosis Plantar fasciitis, bilateral Sciatica Urinary tract infection UTI (urinary tract infection) Venous stasis dermatitis of right lower extremity Surgical History H/O adenoidectomy H/O hand surgery fingers rebroke and reset H/O shoulder surgery two scopes H/O: hysterectomy History of placement of ear tubes History of surgery of liver tumor on liver, removed half of liver Hx of cholecystectomy Previous section x2 S/P knee replacement bilateral knees replaced S/P right knee arthroscopy Family History Mother Arthritis Malignant neoplasm Diabetes mellitus Hypertension Migraine Cerebrovascular accident (CVA) Father Arthritis Dementia Hypertension Aunt Malignant neoplasm Cousin Myocardial Infarction Social History (Updated 03/22/19 @ 14:12 by Elvin Wang PA-C) marital status: alcohol intake frequency: does not drink substance use type: does not use MEDS/ALLERGIES Home Medications and Allergies Home Medications Medication Instructions Recorded Confirmed Type gabapentin 800 mg tablet 800 mg PO QID tab 08/07/15 09/17/20 History hydrocodone 10 mg-acetaminophen 1 tab PO QID 08/07/15 09/17/20 History 325 mg tablet duloxetine 60 mg capsule,delayed 60 mg PO BID cap 10/02/15 09/17/20 History release hydrocortisone 5 mg tablet 10 mg PO .COMPLEX 01/08/16 09/17/20 History cholecalciferol (vitamin D3) 125 5,000 unit PO QDAY cap 07/08/16 09/17/20 History mcg (5,000 unit) capsule ibuprofen 200 mg capsule 600 mg PO QID cap 01/18/17 09/17/20 History metformin 1,000 mg 24 hr 1,000 mg PO BID #120 tab 11/08/17 09/17/20 Rx tablet,extended release atorvastatin 40 mg tablet 40 mg PO QDAY 03/22/19 09/17/20 History fluconazole 100 mg tablet 100 mg PO QDAY 03/22/19 09/17/20 History glipizide 2.5 mg tablet, extended 20 mg PO BID tab 03/22/19 09/17/20 History release 24 hr baclofen 10 mg PO TID 09/02/20 09/17/20 History buprenorphine HCl 2 mg SUBLINGUAL TID 09/02/20 09/17/20 History pioglitazone 30 mg PO QDAY 09/17/20 09/17/20 History valsartan-hydrochlorothiazide 1 tab PO QAM 09/17/20 09/17/20 History Allergies Allergy/AdvReac Type Severity Reaction Status Date / Time Sulfa (Sulfonamide Allergy Mild Rash Verified 09/18/20 06:35 Antibiotics) Physical Examination Ankle & Foot left: Ankle appearance: swelling Foot appearance: swelling and other (Left Metatarsal head first is an acute U[place] Grade 3 Diabetic Ulcer and has received a status of Not Healed. Initial wound encounter measurements are 6.2cm length x 10.7cm width x 1.1cm depth, with an area of 66.34 sq cm and a volume of 72.974 cubic cm. Tunneling has been noted. No sinus tract) A/P Time Spent With Patient Time: Heart Inspection: No cardiac heaves or lifts. Symmetrical expansion with respiration, no other wall motions. Palpation: No thrills appreciated. Point of maximal impulse (PMI) (apical impulse) noted at midclavicular line, in fifth intercostal space. Auscultation: Normal S1 and S2, with regular rate and rhythm. S2 > S1 at the base, S1 > S2 at apex. No splitting of the heart sounds heard. No murmur. No S3 or S4, no friction rub. Lungs Lungs are clear to auscultation and percussion bilaterally No crackles heard in the lung bases bilaterally Plan: Incision and drainage of left foot - IV antibiotics - Heel weight bearing only to left side
[2020-09-18] MEDS ORDERED: MIDAZOLAM 5 MG/5 ML VIAL ONE (11:30)
[2020-09-18] MEDS ORDERED: fentaNYL 100 MCG/2 ML VIAL IV ONE (11:30)
[2020-09-18] MEDS ORDERED: KETAMINE 50 MG/ML ML ONE (11:30)
[2020-09-18] MEDS ORDERED: PROPOFOL 200 MG/20 ML VIAL IV ONE (11:30)
[2020-09-18] MEDS ORDERED: LIDOCAINE 1% 20 ML VIAL SQ ONE (12:03)
--- NOTE | 2020-09-18 14:46 | Brief Operative Note ---
Brief Operative Note Date of procedure: 09/18/20 Pre-op diagnosis: Cellulitis with abscess of left foot Post-op diagnosis: same Procedure: Incision and drainage left foot Grafts/Implants: No Anesthesia: MAC and local Complications: none Surgeon: Alex Mahajan Estimated blood loss (cc): 150 Specimens Removed/Pathology: other (Swab culture) Condition: stable Disposition: floor
--- NOTE | 2020-09-18 14:59 | Internal Med Progress Note ---
SUBJECTIVE Subjective Patient information: Note initiated : 09/19/20 at 2:56 pm Service Date, if different from initiated Date: [] Patient: Amber Weiss 55 y/o F admitted on 09/17/20 for Lt Foot Infection. Chief Complaint: [] Interval history: History of present illness: Ms. Weiss is a 55 year old F Who presented to the ED last night with increased redness and swelling of her left foot and a white spot. Located on the ball of her foot. She was afebrile had a very mild leukocytosis. Vital signs are stable. Instead of being admitted she chose to follow-up with her card game operator in the morning she did with Dr. Mahajan. He evaluated her and felt she needed to be admitted for surgical I&D. The white spot opened up and started draining a white thick purulent substance. 09/18 When I asked if she had a good sleep she laughed at me, but seemed in good spirits this morning. No new pains or complaints. Scheduled for I&D today. 09/09-continues on Zosyn, bone visible concerning for osteomyelitis, awaiting surgical cultures. Head: Atraumatic, normal inspection. Eyes: normal appearance, no scleral icterus. Neck: full ROM Respiratory: no respiratory distress. Cardiovascular: normal rate and rhythm, S1, S2. GI/Abdominal: soft, nontender, no guarding. Extremities: left foot wound s/p I&D, visible bone Neurological: CN II-XII intact, intact motor, intact sensation. Psychiatric: normal mood. Skin: warm, normal color Constitutional Vitals: Vital Signs Temp Pulse Resp BP Pulse Ox 97.6 F 75 15 128/70 100 09/18/20 12:10 09/18/20 12:10 09/18/20 12:10 09/18/20 12:10 09/18/20 12:10 Period Temp Pulse Resp BP Sys/Schultz Pulse Ox Last 24 Hr 96.5 F-99.2 F 64-93 12-18 105-152/58-80 90-100 Intake and Output 09/18/20 09/18/20 09/18/20 05:59 13:59 21:59 Intake Total 450 75 Output Total 750 Balance -300 75 Intake & Output: Intake & Output 05/20/21 05/20/21 05/20/21 05:59 13:59 21:59 Intake Total 450 75 Output Total 750 Balance -300 75 Intake: IV 250 50 Zosyn 3.375 gm In Dextrose 5% 150 50 in Water 50 ml @ 100 mls/hr IV Q6H [facility] Rx#:[id number] Vancomycin 500 mg In Sodium 100 Chloride 0.9% 100 ml @ 100 mls/ hr IV ONCE ONE Rx#:[id number] Oral 200 IV - Manual Only 25 Output: Void Amount 750 Other: Urine Appearance Clear Clear Urine Color Bright Yellow Bright Yellow Urine Odor Normal Normal OBJ DATA Labs CBC & Chem 7: 09/19/20 05:38 09/18/20 05:15 Labs: Abnormal Lab Results 09/18/20 09/18/20 09/17/20 05:15 05:15 12:58 RBC 3.30 L Hgb 9.2 L Hct 29.5 L RDW 16.7 H Lymph % (Auto) [place] # (Auto) Absolute Neutrophils Carbon Dioxide 32 H Anion Gap 7.0 L GGT 37 H Lactate Dehydrogenase 241 H 09/17/20 12:58 RBC 3.34 L Hgb 9.4 L Hct 30.2 L RDW 16.6 H Lymph % (Auto) 14.7 L [place] # (Auto) 0.95 H Absolute Neutrophils 8.15 H Carbon Dioxide Anion Gap GGT Lactate Dehydrogenase Meds: Medications Acetaminophen (Acetaminophen 325 Mg Tablet) 650 mg PO Q6HP PRN PRN Reason: PAIN/FEVER > 101 Hydrocodone Bitart/Acetaminophen (Hydrocodone/Apap 10/325mg Tablet) 1 tab PO QIDP PRN; Protocol PRN Reason: Pain Last Admin: 09/18/20 04:35 Dose: 1 tab Documented by: Albuterol/Ipratropium (Ipratropium/Albuterol 3 Ml Ampul.Neb) 3 ml NEB Q4HP PRN PRN Reason: Shortness Of Breath Atorvastatin Calcium (Atorvastatin 40 Mg Tablet) 40 mg PO QDAY [facility] Last Admin: 09/18/20 07:49 Dose: 40 mg Documented by: Baclofen (Baclofen 10 Mg Tablet) 10 mg PO TID [facility] Last Admin: 09/18/20 14:01 Dose: 10 mg Documented by: Dextrose (Dextrose 50% 50 Ml Vial) 0 ml IV UD PRN PRN Reason: Hypoglycemia Diagnostic Test (Pha) (Accu-Chek 1 Each Strip) 1 each FS ACHS [facility] Last Admin: 09/18/20 12:09 Dose: Not Given Documented by: Docusate Sodium (Docusate Sodium 100 Mg Capsule) 100 mg PO BID [facility] Last Admin: 09/18/20 07:49 Dose: 100 mg Documented by: Duloxetine HCl (Duloxetine 30 Mg Capsule) 60 mg PO BID [facility] Last Admin: 09/18/20 07:49 Dose: 60 mg Documented by: Gabapentin (Gabapentin 400 Mg Capsule) 800 mg PO QID [facility] Last Admin: 09/18/20 14:01 Dose: 800 mg Documented by: Glucose (Dextrose 31 Gm Oral.Susp) 15 gm PO PRN PRN PRN Reason: Hypoglycemia Hydrochlorothiazide (Hydrochlorothiazide 12.5 Mg Capsule) 12.5 mg PO DAILY [facility] Last Admin: 09/18/20 07:49 Dose: 12.5 mg Documented by: Hydrocortisone (Hydrocortisone 10 Mg Tablet) 5 mg PO QPMCC [facility] Last Admin: 09/17/20 16:56 Dose: 5 mg Documented by: [facility]cortis[facility] ([facility] 10 Mg [facility]t) [facility] Last Admin: 09/18/20 07:50 Dose: 10 mg Documented by: Potassium Chloride 40 meq/ (Dextrose) 520 mls @ 130 mls/hr IV UD PRN PRN Reason: Potassium < 3 Magnesium Sulfate (Magnesium Sulfate) 2 gm in 50 mls @ 50 mls/hr IV UD PRN PRN Reason: Magnesium </= 1.6 Piperacillin Sod/Tazobactam (Sod 3.375 gm/ Dextrose) 50 mls @ 100 mls/hr IV Q6H [facility]; Protocol Last Infusion: 09/18/20 12:20 Dose: Infused Documented by: Insulin Human Lispro (Insulin Lispro 1 Unit/0.01 Ml Unit) 0 unit SQ [facility]; Protocol Last Admin: 09/18/20 12:09 Dose: Not Given Documented by: Lactulose (Lactulose 20 Gm/30 Ml Oral.Dione) 20 gm PO DAILYP PRN PRN Reason: Constipation Metformin HCl (Metformin 500 Mg Tab.Xl.24h) 1,000 mg PO BIDCC [facility] Last Admin: 09/18/20 07:51 Dose: Not Given Documented by: Buprenorphine ( (Subutex) 8 Mg Tab) 2 mg PO TID [facility] Last Admin: 09/18/20 14:01 Dose: 2 mg Documented by: Olmesartan (Olmesartan Medoxomil 20 Mg Tablet) 40 mg PO DAILY [facility] Last Admin: 09/18/20 07:49 Dose: 40 mg Documented by: Ondansetron HCl (Ondansetron 4 Mg/2 Ml Vial) 4 mg IV Q4HP PRN PRN Reason: Nausea And Vomiting Polyethylene Glycol (Polyethylene Glycol 3350 17 Gm Packet) 17 gm PO DAILYP PRN PRN Reason: Constipation Potassium Chloride (Potassium Chloride 20 Meq Tablet) 40 meq PO UD PRN PRN Reason: Potssium is 3-3.5 Potassium Chloride (Potassium Chloride 20 Meq Tablet) 40 meq PO UD PRN PRN Reason: Potassium < 3 Senna (Sennosides 1 Tablet) 2 tab PO DAILYP PRN PRN Reason: Constipation Sodium Chloride (0.9 % Sodium Chloride 10 Ml Syringe) 10 ml IV Q8 [facility] Last Admin: 09/18/20 14:02 Dose: Not Given Documented by: A/P Narrative A/P Narrative: Assessment: 85-year-old female with a history of hypertension, hyperlipidemia, 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 *Left foot diabetic wound infection/cellulitis/abscess *Concern for osteomyelitis of right foot. *DM w/neuropathy: *Anemia, chronic *HTN/HLD: *Depression/anxiety: *Adrenal insufficiency: *Obesity: P: -Dr. Mahajan from podiatry following post I&D. -Antibiotics, pending BC/WC, currently on Zosyn. -Consider ID consult depending on culture results. -Vascular SKYLA ordered. -wound care -SSI -Continue home BP meds -Continue home psych meds -PT/OT -ppx: heparin full code Time Spent With Patient Time: Total time spent is greater than 50% in coordination of care (as do cumented) at patient's floor/unit and/or counseling patient: QUALITY VTE Deep Vein Thrombosis/Pulmonary Embolism Present on Admission: No
--- NOTE | 2020-09-18 15:14 | Operative Note ---
DATE OF OPERATION: 09/18/2020 PREOPERATIVE DIAGNOSIS: Cellulitis with abscess of the left foot. POSTOPERATIVE DIAGNOSIS: Cellulitis with abscess of the left foot. PROCEDURE: Incision and drainage of left foot. SURGEON: Alex Mahajan DPM. IMPLANTS: None. ANESTHESIA: MAC, local. COMPLICATIONS: None. BLOOD LOSS: 150 mL. SPECIMEN: Swab culture, left foot. CONDITION: Stable. DISPOSITION: Floor. PROCEDURE IN DETAIL: The patient was brought to the operating room. She remained on the hospital bed throughout the procedure. Area was scrubbed, prepped, and draped. MAC anesthesia was initiated. A total of 10 mL 1% lidocaine plain infiltrated in a Hendrix block fashion, left first metatarsal. Timeout performed. Attention was directed to the distal first metatarsal where it was noted to be highly edematous, a large area of cellulitis around the forefoot and edema. There was also a notable abscess with purulent discharge and serous discharge as well. A #10 blade was used to create a full-thickness flap on the medial aspect. Upon incision, there was noted necrotic tissue and fasciitis and also malodor noted from the purulent discharge. This was sampled with a culture swab, taken for Gram stain and culture and susceptibility. The area was continued to be investigated and noted to be probing through sinus tract to the plantar aspect of the foot and under the metatarsals to approximately the third metatarsal space. This was expressed of all fluid. There was a total of 3 liters of lactated Ringer's used under pulse lavage to irrigate the area. Additional inspection verified complete removal of all necrotic tissue with a medial deficit approximately 2 cm. Areas were then packed with half-inch iodine packing, 4 x 4 gauze, Kerlix, and Coban in a mildly compressive fashion. The patient tolerated the procedure well and was transferred to postoperative care unit with vital signs stable and vascular status intact to her foot. She will continue to be followed up with intravenous antibiotic therapy throughout her stay in the hospital. She will receive dressing changes consistent with her infection and continued monitoring. GILMAR:swapna Job ID: [id number] Doc ID: [id number] Alex Mahajan DPM
[2020-09-19] MEDS: PIPERACILLIN SODIUM/TAZOBACTAM 3.375 GM in DEXTROSE 5% IN WATER 50 ML IV SCH ×5 (00:07→23:41)
[2020-09-19] MEDS: 0.9 % SODIUM CHLORIDE 10 ML SYRINGE IV SCH ×3 (05:55→20:31)
[2020-09-19] MEDS: INSULIN LISPRO 1 UNIT/0.01 ML UNIT SQ SCH ×4 (07:14→20:31)
[2020-09-19 07:49] LABS: Hematocrit 29.6 % (36.0-48.0); Hemoglobin 9.1 g/dL (12.0-15.0)
[2020-09-19] MEDS: GABAPENTIN 400 MG CAPSULE PO SCH ×4 (08:09→20:44)
[2020-09-19] MEDS: HYDROCHLOROTHIAZIDE 12.5 MG CAPSULE PO SCH (08:09)
[2020-09-19] MEDS: BACLOFEN 10 MG TABLET PO SCH ×3 (08:09→20:44)
[2020-09-19] MEDS: ATORVASTATIN 40 MG TABLET PO SCH (08:09)
[2020-09-19] MEDS: DULoxetine 30 MG CAPSULE PO SCH ×2 (08:09→20:44)
[2020-09-19] MEDS: metFORMIN 500 MG TAB.XL.24H PO SCH ×2 (08:09→16:31)
[2020-09-19] MEDS: HYDROCORTISONE 10 MG TABLET PO SCH ×2 (08:10→16:31)
[2020-09-19] MEDS: DOCUSATE SODIUM 100 MG CAPSULE PO SCH ×2 (08:10→20:44)
--- NOTE | 2020-09-19 09:02 | Orthopedic Progress Note ---
SUBJECTIVE Subjective Patient information: Note initiated : 09/19/20 at 9:00 am Service Date, if different from initiated Date: [] Patient: Amber Weiss 55 y/o F admitted on 09/17/20 for Lt Foot Infection. Chief Complaint: [left foot wound and infection] No issues overnight. Mild to no pain of the left foot. She is neuropathic and does not normally feel pain and did not feel pain in the beginning anyway. Sleep has been acceptable though not as good as at home. Constitutional Vitals: Vital Signs Temp Pulse Resp BP Pulse Ox 98.2 F 80 18 93/51 91 09/19/20 07:38 09/19/20 07:38 09/19/20 07:38 09/19/20 07:38 09/19/20 07:38 Period Temp Pulse Resp BP Sys/Schultz Pulse Ox Last 24 Hr 96.9 F-98.6 F 75-90 12-18 93-135/51-74 91-100 Intake and Output 09/18/20 09/19/20 09/19/20 21:59 05:59 13:59 Intake Total 50 650 50 Output Total 550 Balance 50 650 -500 Weight 406 lb 8 oz Intake & Output: Intake & Output 09/18/20 09/19/20 09/19/20 21:59 05:59 13:59 Intake Total 50 650 50 Output Total 550 Balance 50 650 -500 Weight 406 lb 8 oz Intake: IV 50 50 50 Zosyn 3.375 gm In Dextrose 5% 50 50 50 in Water 50 ml @ 100 mls/hr IV Q6H [facility] Rx#:[id number] Oral 0 600 Output: Void Amount 550 Other: Urine Appearance Clear Urine Color Dark Yellow # Voids 1 1 OBJ DATA Labs CBC & Chem 7: 09/19/20 05:38 09/18/20 05:15 Labs: Abnormal Lab Results 09/19/20 09/18/20 09/18/20 05:38 05:15 05:15 RBC 3.30 L Hgb 9.1 L 9.2 L Hct 29.6 L 29.5 L RDW 16.7 H Lymph % (Auto) [place] # (Auto) Absolute Neutrophils Carbon Dioxide Anion Gap GGT 37 H Lactate Dehydrogenase 241 H 09/17/20 09/17/20 12:58 12:58 RBC 3.34 L Hgb 9.4 L Hct 30.2 L RDW 16.6 H Lymph % (Auto) 14.7 L [place] # (Auto) 0.95 H Absolute Neutrophils 8.15 H Carbon Dioxide 32 H Anion Gap 7.0 L GGT Lactate Dehydrogenase Meds: Medications Acetaminophen (Acetaminophen 325 Mg Tablet) 650 mg PO Q6HP PRN PRN Reason: PAIN/FEVER > 101 Hydrocodone Bitart/Acetaminophen (Hydrocodone/Apap 10/325mg Tablet) 1 tab PO QI DP PRN; Protocol PRN Reason: Pain Last Admin: 09/18/20 04:35 Dose: 1 tab Documented by: Albuterol/Ipratropium (Ipratropium/Albuterol 3 Ml Ampul.Neb) 3 ml NEB Q4HP PRN PRN Reason: Shortness Of Breath Atorvastatin Calcium (Atorvastatin 40 Mg Tablet) 40 mg PO QDAY [facility] Last Admin: 09/19/20 08:09 Dose: 40 mg Documented by: Baclofen (Baclofen 10 Mg Tablet) 10 mg PO TID [facility] Last Admin: 09/19/20 08:09 Dose: 10 mg Documented by: Dextrose (Dextrose 50% 50 Ml Vial) 0 ml IV UD PRN PRN Reason: Hypoglycemia Diagnostic Test (Pha) (Accu-Chek 1 Each Strip) 1 each FS ACHS [facility] Last Admin: 09/19/20 07:14 Dose: 1 each Documented by: Docusate Sodium (Docusate Sodium 100 Mg Capsule) 100 mg PO BID [facility] Last Admin: 09/19/20 08:10 Dose: Not Given Documented by: Duloxetine HCl (Duloxetine 30 Mg Capsule) 60 mg PO BID [facility] Last Admin: 09/19/20 08:09 Dose: 60 mg Documented by: Gabapentin (Gabapentin 400 Mg Capsule) 800 mg PO QID [facility] Last Admin: 09/19/20 08:09 Dose: 800 mg Documented by: Glucose (Dextrose 31 Gm Oral.Susp) 15 gm PO PRN PRN PRN Reason: Hypoglycemia Hydrochlorothiazide (Hydrochlorothiazide 12.5 Mg Capsule) 12.5 mg PO DAILY [facility] Last Admin: 09/19/20 08:09 Dose: 12.5 mg Documented by: Hydrocortisone (Hydrocortisone 10 Mg Tablet) 5 mg PO QPMCC [facility] Last Admin: 09/18/20 17:01 Dose: 5 mg Documented by: Hydrocortisone (Hydrocortisone 10 Mg Tablet) 10 mg PO QAC [facility] Last Admin: 09/19/20 08:10 Dose: 10 mg Documented by: Potassium Chloride 40 meq/ (Dextrose) 520 mls @ 130 mls/hr IV UD PRN PRN Reason: Potassium < 3 Magnesium Sulfate (Magnesium Sulfate) 2 gm in 50 mls @ 50 mls/hr IV UD PRN PRN Reason: Magnesium </= 1.6 Piperacillin Sod/Tazobactam (Sod 3.375 gm/ Dextrose) 50 mls @ 100 mls/hr IV Q6H [facility]; Protocol Last Infusion: 09/19/20 06:30 Dose: Infused Documented by: Insulin Human Lispro (Insulin Lispro 1 Unit/0.01 Ml Unit) 0 unit SQ ACHS [facility]; Protocol Last Admin: 09/19/20 07:14 Dose: Not Given Documented by: Lactulose (Lactulose 20 Gm/30 Ml Oral.Dione) 20 gm PO DAILYP PRN PRN Reason: Constipation Metformin HCl (Metformin 500 Mg Tab.Xl.24h) 1,000 mg PO BIDCC [facility] Last Admin: 09/19/20 08:09 Dose: 1,000 mg Documented by: Buprenorphine ( (Subutex) 8 Mg Tab) 2 mg PO TID [facility] Last Admin: 09/18/20 20:23 Dose: 2 mg Documented by: Olmesartan (Olmesartan Medoxomil 20 Mg Tablet) 40 mg PO DAILY [facility] Last Admin: 09/18/20 07:49 Dose: 40 mg Documented by: Ondansetron HCl (Ondansetron 4 Mg/2 Ml Vial) 4 mg IV Q4HP PRN PRN Reason: Nausea And Vomiting Polyethylene Glycol (Polyethylene Glycol 3350 17 Gm Packet) 17 gm PO DAILYP PRN PRN Reason: Constipation Potassium Chloride (Potassium Chloride 20 Meq Tablet) 40 meq PO UD PRN PRN Reason: Potssium is 3-3.5 Potassium Chloride (Potassium Chloride 20 Meq Tablet) 40 meq PO UD PRN PRN Reason: Potassium < 3 Senna (Sennosides 1 Tablet) 2 tab PO DAILYP PRN PRN Reason: Constipation Sodium Chloride (0.9 % Sodium Chloride 10 Ml Syringe) 10 ml IV Q8 [facility] Last Admin: 09/19/20 05:55 Dose: 10 ml Documented by: A/P Time Spent With Patient Time: Total time spent is greater than 50% in coordination of care (as documented) at patient's floor/unit and/or counseling patient: Daily dressing change of a wet saline packing daily Risk for osteomyelitis and further amputation high, shared with patient today.
[2020-09-19] MEDS: HEPARIN 5,000 UNIT/ML VIAL SQ SCH ×2 (10:51→20:45)
[2020-09-19] MEDS: OLMESARTAN MEDOXOMIL 20 MG TABLET PO SCH (10:51)
[2020-09-20] MEDS: 0.9 % SODIUM CHLORIDE 10 ML SYRINGE IV SCH ×3 (05:15→21:42)
[2020-09-20] MEDS: PIPERACILLIN SODIUM/TAZOBACTAM 3.375 GM in DEXTROSE 5% IN WATER 50 ML IV SCH ×4 (05:15→23:40)
[2020-09-20] MEDS: metFORMIN 500 MG TAB.XL.24H PO SCH ×2 (07:09→16:47)
[2020-09-20] MEDS: HYDROCORTISONE 10 MG TABLET PO SCH ×2 (07:09→16:47)
[2020-09-20] MEDS: HYDROcodone/APAP 10/325MG TABLET PO PRN ×2 (07:09→18:32)
[2020-09-20] MEDS: INSULIN LISPRO 1 UNIT/0.01 ML UNIT SQ SCH ×4 (07:47→21:41)
[2020-09-20] MEDS: DOCUSATE SODIUM 100 MG CAPSULE PO SCH ×2 (07:47→21:42)
[2020-09-20] MEDS: BACLOFEN 10 MG TABLET PO SCH ×3 (09:00→21:52)
[2020-09-20] MEDS: GABAPENTIN 400 MG CAPSULE PO SCH ×4 (09:00→21:52)
[2020-09-20] MEDS: HEPARIN 5,000 UNIT/ML VIAL SQ SCH ×2 (09:00→21:52)
[2020-09-20] MEDS: HYDROCHLOROTHIAZIDE 12.5 MG CAPSULE PO SCH (09:00)
[2020-09-20] MEDS: ATORVASTATIN 40 MG TABLET PO SCH (09:00)
[2020-09-20] MEDS: OLMESARTAN MEDOXOMIL 20 MG TABLET PO SCH (09:00)
[2020-09-20] MEDS: DULoxetine 30 MG CAPSULE PO SCH ×2 (09:01→21:52)
--- NOTE | 2020-09-20 10:31 | Orthopedic Progress Note ---
SUBJECTIVE Subjective Patient information: Note initiated : 09/20/20 at 10:26 am Service Date, if different from initiated Date: [] Patient: Amber Weiss 55 y/o F admitted on 09/17/20 for Lt Foot Infection. Chief Complaint: [Left foot infection] Patient continues to be asymptomatic. She was able to rest well last night. She has not pain (or much sensation) to the feet. She expressed concern about being placed in a care facility upon discharge from the hospital. Constitutional Vitals: Vital Signs Temp Pulse Resp BP Pulse Ox 97.7 F 79 20 121/65 93 09/20/20 07:31 09/20/20 07:31 09/20/20 07:31 09/20/20 07:31 09/20/20 07:31 Period Temp Pulse Resp BP Sys/Schultz Pulse Ox Last 24 Hr 96.4 F-97.7 F 79-85 14-20 112-136/58-75 93-96 Intake and Output 09/19/20 09/20/20 09/20/20 21:59 05:59 13:59 Intake Total 1090 300 Output Total 1100 1200 Balance -10 -900 Weight 404 lb 4 oz Intake & Output: Intake & Output 09/19/20 09/20/20 09/20/20 21:59 05:59 13:59 Intake Total 1090 300 Output Total 1100 1200 Balance -10 -900 Weight 404 lb 4 oz Intake: IV 50 100 Zosyn 3.375 gm In Dextrose 5% 50 100 in Water 50 ml @ 100 mls/hr IV Q6H [facility] Rx#:[id number] Oral 1040 200 Output: Void Amount 1100 1200 Other: Urine Appearance Clear Clear Urine Color Straw Straw Urine Odor Normal Stool Size Moderate Stool Color Brown Stool Consistency Dry and Hard Skin Additional comments: Left Metatarsal head first is an acute [place] Grade 3 Diabetic Ulcer. Wound encounter measurements are 6.2cm length x 10.7cm width x 1.1cm depth. Tunneling to dorsal foot. Sinus tract noted to third metatarsal. Undermining has been noted at 12:00 and ends at 12:00 with a maximum distance of 4.1cm. There is a moderate amount of sero-sanguineous drainage noted. The wound margin is undefined. Wound bed has 51-75% epithelialization, 1-25% slough, 1-25% pale escamilla, bright red, pink, spongy granulation; no eschar present. The periwound skin moisture is normal. The periwound skin exhibited: Edema, Fluctuance, and Erythema. The temperature of the periwound skin is Warm. Periwound skin presents with s/s of infection. Measurement of affected area, deepest at 3 OBJ DATA Labs CBC & Chem 7: 09/19/20 05:38 09/18/20 05:15 Labs: Abnormal Lab Results 09/20/20 09/19/20 09/18/20 08:50 05:38 05:15 RBC Hgb 9.1 L Hct 29.6 L RDW Lymph % (Auto) [place] # (Auto) Absolute Neutrophils Carbon Dioxide Anion Gap GGT 37 H Lactate Dehydrogenase 241 H C-Reactive Protein 5.60 H 09/18/20 09/17/20 09/17/20 05:15 12:58 12:58 RBC 3.30 L 3.34 L Hgb 9.2 L 9.4 L Hct 29.5 L 30.2 L RDW 16.7 H 16.6 H Lymph % (Auto) 14.7 L [place] # (Auto) 0.95 H Absolute Neutrophils 8.15 H Carbon Dioxide 32 H Anion Gap 7.0 L GGT Lactate Dehydrogenase C-Reactive Protein Meds: Medications Acetaminophen (Acetaminophen 325 Mg Tablet) 650 mg PO Q6HP PRN PRN Reason: PAIN/FEVER > 101 Hydrocodone Bitart/Acetaminophen (Hydrocodone/Apap 10/325mg Tablet) 1 tab PO QIDP PRN; Protocol PRN Reason: Pain Last Admin: 09/20/20 07:09 Dose: 1 tab Documented by: Albuterol/Ipratropium (Ipratropium/Albuterol 3 Ml Ampul.Neb) 3 ml NEB Q4HP PRN PRN Reason: Shortness Of Breath Atorvastatin Calcium (Atorvastatin 40 Mg Tablet) 40 mg PO QDAY [facility] Last Admin: 09/20/20 09:00 Dose: 40 mg Documented by: Baclofen (Baclofen 10 Mg Tablet) 10 mg PO TID [facility] Last Admin: 09/20/20 09:00 Dose: 10 mg Documented by: Dextrose (Dextrose 50% 50 Ml Vial) 0 ml IV UD PRN PRN Reason: Hypoglycemia Diagnostic Test (Pha) (Accu-Chek 1 Each Strip) 1 each FS ACHS [facility] Last Admin: 09/20/20 07:10 Dose: 1 each Documented by: Docusate Sodium (Docusate Sodium 100 Mg Capsule) 100 mg PO BID [facility] Last Admin: 09/20/20 07:47 Dose: Not Given Documented by: Duloxetine HCl (Duloxetine 30 Mg Capsule) 60 mg PO BID [facility] Last Admin: 09/20/20 09:01 Dose: 60 mg Documented by: Gabapentin (Gabapentin 400 Mg Capsule) 800 mg PO QID [facility] Last Admin: 09/20/20 09:00 Dose: 800 mg Documented by: Glucose (Dextrose 31 Gm Oral.Susp) 15 gm PO PRN PRN PRN Reason: Hypoglycemia Heparin Sodium (Porcine) (Heparin 5,000 Unit/Ml Vial) 5,000 unit SQ Q12 [facility] Last Admin: 09/20/20 09:00 Dose: 5,000 unit Documented by: Hydrochlorothiazide (Hydrochlorothiazide 12.5 Mg Capsule) 12.5 mg PO DAILY [facility] Last Admin: 09/20/20 09:00 Dose: 12.5 mg Documented by: Hydrocortisone (Hydrocortisone 10 Mg Tablet) 5 mg PO QPMCC [facility] Last Admin: 09/19/20 16:31 Dose: 5 mg Documented by: [facility]cortisone ([facility]) [facility] Admin: 09/20/20 07:09 Dose: 10 mg Documented by: Potassium Chloride 40 meq/ (Dextrose) 520 mls @ 130 mls/hr IV UD PRN PRN Reason: Potassium < 3 Magnesium Sulfate (Magnesium Sulfate) 2 gm in 50 mls @ 50 mls/hr IV UD PRN PRN Reason: Magnesium </= 1.6 Piperacillin Sod/Tazobactam (Sod 3.375 gm/ Dextrose) 50 mls @ 100 mls/hr IV Q6H [facility]; Protocol Last Infusion: 09/20/20 05:50 Dose: Infused Documented by: Insulin Human Lispro (Insulin Lispro 1 Unit/0.01 Ml Unit) 0 unit SQ ACHS [facility]; Protocol Last Admin: 09/20/20 07:47 Dose: Not Given Documented by: Lactulose (Lactulose 20 Gm/30 Ml Oral.Dione) 20 gm PO DAILYP PRN PRN Reason: Constipation Metformin HCl (Metformin 500 Mg Tab.Xl.24h) 1,000 mg PO BIDCC [facility] Last Admin: 09/20/20 07:09 Dose: 1,000 mg Documented by: Buprenorphine ( (Subutex) 8 Mg Tab) 2 mg PO TID [facility] Last Admin: 09/20/20 08:59 Dose: 2 mg Documented by: Olmesartan (Olmesartan Medoxomil 20 Mg Tablet) 40 mg PO DAILY [facility] Last Admin: 09/20/20 09:00 Dose: 40 mg Documented by: Ondansetron HCl (Ondansetron 4 Mg/2 Ml Vial) 4 mg IV Q4HP PRN PRN Reason: Nausea And Vomiting Polyethylene Glycol (Polyethylene Glycol 3350 17 Gm Packet) 17 gm PO DAILYP PRN PRN Reason: Constipation Potassium Chloride (Potassium Chloride 20 Meq Tablet) 40 meq PO UD PRN PRN Reason: Potssium is 3-3.5 Potassium Chloride (Potassium Chloride 20 Meq Tablet) 40 meq PO UD PRN PRN Reason: Potassium < 3 Senna (Sennosides 1 Tablet) 2 tab PO DAILYP PRN PRN Reason: Constipation Sodium Chloride (0.9 % Sodium Chloride 10 Ml Syringe) 10 ml IV Q8 [facility] Last Admin: 09/20/20 05:15 Dose: 10 ml Documented by: A/P Time Spent With Patient Time: Total time spent is greater than 50% in coordination of care (as documented) at patient's floor/unit and/or counseling patient: - WBC trending down - Erythema and edema of left foot is improving - Pending deep culture c/s - ID to consult - Wound Vac - Serial X-ray to monitor presence of osteomyelitis - Podiatry will continue to follow daily
--- NOTE | 2020-09-20 12:50 | Ultrasound Report ---
CLINICAL INFORMATION: diabetic wound, evaluate vascular supply COMPARISON: None. FINDINGS: The exam was limited due to body habitus. Specifically, the distal abdominal aorta on the left common and left external iliac arteries cannot be evaluated. The left common femoral, profunda femoral, superficial femoral and popliteal arteries are widely patent. Anterior tibial artery is widely patent. The peroneal and posterior tibial arteries were not visualized IMPRESSION: Limited exam: The distal abdominal aorta, left common and external iliac arteries not visualized., Common femoral, superficial femoral and popliteal arteries are widely patent. Anterior tibial artery is also patent. The tibial peroneal trunk peroneal and posteriorly arteries not visualized. If the patient can tolerate, consider CT abdominal aortogram with runoff. MR abdominal aortogram with runoff would also be adequate. Interpreted and Authenticated by: Farshad Castro 09/20/20
--- NOTE | 2020-09-20 15:31 | Internal Med Progress Note ---
SUBJECTIVE Subjective Patient information: Note initiated : 09/20/20 at 3:27 pm Service Date, if different from initiated Date: [] Patient: Amber Weiss 55 y/o F admitted on 09/17/20 for Lt Foot Infection. Chief Complaint: [] Interval history: History of present illness: Ms. Weiss is a 55 year old F Who presented to the ED last night with increased redness and swelling of her left foot and a white spot. Located on the ball of her foot. She was afebrile had a very mild leukocytosis. Vital signs are stable. Instead of being admitted she chose to follow-up with her flower stripper in the morning she did with Dr. Mahajan. He evaluated her and felt she needed to be admitted for surgical I&D. The white spot opened up and started draining a white thick purulent substance. 09/18 When I asked if she had a good sleep she laughed at me, but seemed in good spirits this morning. No new pains or complaints. Scheduled for I&D today. 09/19-continues on Zosyn, bone visible concerning for osteomyelitis, awaiting surgical cultures. 09/20-stable, awaiting wound culture results. Confirmed with staff that bone cultures were not taken. CRP 5.6, down from 9.2. Plan to consult ID on Tuesday. Head: Atraumatic, normal inspection. Eyes: normal appearance, no scleral icterus. Neck: full ROM Respiratory: no respiratory distress. Cardiovascular: normal rate and rhythm, S1, S2. GI/Abdominal: soft, nontender, no guarding. Extremities: left foot wound s/p I&D, covered with clean bandage. Neurological: CN II-XII intact, intact motor, intact sensation. Psychiatric: normal mood. Skin: warm, normal color Constitutional Vitals: Vital Signs Temp Pulse Resp BP Pulse Ox 97.0 F 71 18 108/52 91 09/20/20 12:00 09/20/20 12:00 09/20/20 12:00 09/20/20 12:00 09/20/20 12:00 Period Temp Pulse Resp BP Sys/Schultz Pulse Ox Last 24 Hr 96.4 F-97.7 F 71-85 16-20 108-136/52-75 91-96 Intake and Output 09/20/20 09/20/20 09/20/20 05:59 13:59 21:59 Intake Total 300 500 Output Total 1200 650 Balance -900 -150 Intake & Output: Intake & Output 09/20/20 09/20/20 09/20/20 05:59 13:59 21:59 Intake Total 300 500 Output Total 1200 650 Balance -900 -150 Intake: IV 100 50 Zosyn 3.375 gm In Dextrose 5% 100 50 in Water 50 ml @ 100 mls/hr IV Q6H [facility] Rx#:[id number] Oral 200 450 Output: Void Amount 1200 650 Other: Meal Breakfast Percent of Meal Consumed 100% Feeding Ability Independent Urine Appearance Clear Clear Urine Color Straw Bright Yellow Urine Odor Normal OBJ DATA Labs CBC & Chem 7: 09/19/20 05:38 09/18/20 05:15 Labs: Abnormal Lab Results 09/20/20 09/19/20 09/18/20 08:50 05:38 05:15 RBC Hgb 9.1 L Hct 29.6 L RDW GGT 37 H Lactate Dehydrogenase 241 H C-Reactive Protein 5.60 H 09/18/20 05:15 RBC 3.30 L Hgb 9.2 L Hct 29.5 L RDW 16.7 H GGT Lactate Dehydrogenase C-Reactive Protein Meds: Medications Acetaminophen (Acetaminophen 325 Mg Tablet) 650 mg PO Q6HP PRN PRN Reason: PAIN/FEVER > 101 Hydrocodone Bitart/Acetaminophen (Hydrocodone/Apap 10/325mg Tablet) 1 tab PO QIDP PRN; Protocol PRN Reason: Pain Last Admin: 09/20/20 07:09 Dose: 1 tab Documented by: Albuterol/Ipratropium (Ipratropium/Albuterol 3 Ml Ampul.Neb) 3 ml NEB Q4HP PRN PRN Reason: Shortness Of Breath Atorvastatin Calcium (Atorvastatin 40 Mg Tablet) 40 mg PO QDAY [facility] Last Admin: 09/20/20 09:00 Dose: 40 mg Documented by: Baclofen (Baclofen 10 Mg Tablet) 10 mg PO TID [facility] Last Admin: 09/20/20 14:19 Dose: 10 mg Documented by: Dextrose (Dextrose 50% 50 Ml Vial) 0 ml IV UD PRN PRN Reason: Hypoglycemia Diagnostic Test (Pha) (Accu-Chek 1 Each Strip) 1 each FS ACHS [facility] Last Admin: 09/20/20 11:59 Dose: 1 each Documented by: Docusate Sodium (Docusate Sodium 100 Mg Capsule) 100 mg PO BID [facility] Last Admin: 09/20/20 07:47 Dose: Not Given Documented by: Duloxetine HCl (Duloxetine 30 Mg Capsule) 60 mg PO BID [facility] Last Admin: 09/20/20 09:01 Dose: 60 mg Documented by: Gabapentin (Gabapentin 400 Mg Capsule) 800 mg PO QID [facility] Last Admin: 09/20/20 12:00 Dose: 800 mg Documented by: Glucose (Dextrose 31 Gm Oral.Susp) 15 gm PO PRN PRN PRN Reason: Hypoglycemia Heparin Sodium (Porcine) (Heparin 5,000 Unit/Ml Vial) 5,000 unit SQ Q12 [facility] Last Admin: 09/20/20 09:00 Dose: 5,000 unit Documented by: Hydrochlorothiazide (Hydrochlorothiazide 12.5 Mg Capsule) 12.5 mg PO DAILY [facility] Last Admin: 09/20/20 09:00 Dose: 12.5 mg Documented by: Hydrocortisone (Hydrocortisone 10 Mg Tablet) 5 mg PO QPMCC [facility] Last Admin: 09/19/20 16:31 Dose: 5 mg Documented by: Hydrocortisone ([facility] 10 Mg Tablet) [facility] Last Admin: 09/20/20 07:09 Dose: 10 mg Documented by: Potassium Chloride 40 meq/ (Dextrose) 520 mls @ 130 mls/hr IV UD PRN PRN Reason: Potassium < 3 Magnesium Sulfate (Magnesium Sulfate) 2 gm in 50 mls @ 50 mls/hr IV UD PRN PRN Reason: Magnesium </= 1.6 Piperacillin Sod/Tazobactam (Sod 3.375 gm/ Dextrose) 50 mls @ 100 mls/hr IV Q6H [facility]; Protocol Last Infusion: 09/20/20 12:39 Dose: Infused Documented by: Insulin Human Lispro (Insulin Lispro 1 Unit/0.01 Ml Unit) 0 unit SQ ACHS [facility]; Protocol Last Admin: 09/20/20 11:59 Dose: Not Given Documented by: Lactulose (Lactulose 20 Gm/30 Ml Oral.Dione) 20 gm PO DAILYP PRN PRN Reason: Constipation Metformin HCl (Metformin 500 Mg Tab.Xl.24h) 1,000 mg PO BIDCC [facility] Last Admin: 09/20/20 07:09 Dose: 1,000 mg Documented by: Buprenorphine ( (Subutex) 8 Mg Tab) 2 mg PO TID [facility] Last Admin: 09/20/20 14:19 Dose: 2 mg Documented by: Olmesartan (Olmesartan Medoxomil 20 Mg Tablet) 40 mg PO DAILY [facility] Last Admin: 09/20/20 09:00 Dose: 40 mg Documented by: Ondansetron HCl (Ondansetron 4 Mg/2 Ml Vial) 4 mg IV Q4HP PRN PRN Reason: Nausea And Vomiting Polyethylene Glycol (Polyethylene Glycol 3350 17 Gm Packet) 17 gm PO DAILYP PRN PRN Reason: Constipation Potassium Chloride (Potassium Chloride 20 Meq Tablet) 40 meq PO UD PRN PRN Reason: Potssium is 3-3.5 Potassium Chloride (Potassium Chloride 20 Meq Tablet) 40 meq PO UD PRN PRN Reason: Potassium < 3 Senna (Sennosides 1 Tablet) 2 tab PO DAILYP PRN PRN Reason: Constipation Sodium Chloride (0.9 % Sodium Chloride 10 Ml Syringe) 10 ml IV Q8 [facility] Last Admin: 09/20/20 12:00 Dose: 10 ml Documented by: A/P Narrative A/P Narrative: Assessment: 85-year-old female with a history of hypertension, hyperlipidemia, 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 *Left foot diabetic wound infection/cellulitis/abscess *Concern for osteomyelitis of right foot w/ visible bone (CRP only 9.2->5.6) *DM w/neuropathy: *Anemia, chronic *HTN/HLD: *Depression/anxiety: *Adrenal insufficiency: *Obesity: P: -Dr. Mahajan from podiatry following post I&D. -Antibiotics, pending BC/WC, currently on Zosyn. -ID consult on Tuesday -LLE arterial duplex -wound care -SSI -Continue home BP meds -Continue home psych meds -PT/OT -ppx: heparin full code Time Spent With Patient Time: Total time spent is greater than 50% in coordination of care (as document ed) at patient's floor/unit and/or counseling patient: QUALITY VTE Deep Vein Thrombosis/Pulmonary Embolism Present on Admission: No
[2020-09-21] MEDS: HYDROcodone/APAP 10/325MG TABLET PO PRN ×2 (03:05→17:29)
[2020-09-21] MEDS: 0.9 % SODIUM CHLORIDE 10 ML SYRINGE IV SCH ×3 (05:14→20:49)
[2020-09-21] MEDS: PIPERACILLIN SODIUM/TAZOBACTAM 3.375 GM in DEXTROSE 5% IN WATER 50 ML IV SCH ×4 (05:14→23:28)
[2020-09-21] MEDS: INSULIN LISPRO 1 UNIT/0.01 ML UNIT SQ SCH ×4 (07:12→21:11)
[2020-09-21] MEDS: HYDROCORTISONE 10 MG TABLET PO SCH ×2 (08:13→16:23)
[2020-09-21] MEDS: HEPARIN 5,000 UNIT/ML VIAL SQ SCH ×2 (08:13→21:11)
[2020-09-21] MEDS: HYDROCHLOROTHIAZIDE 12.5 MG CAPSULE PO SCH (08:13)
[2020-09-21] MEDS: BACLOFEN 10 MG TABLET PO SCH ×3 (08:13→21:11)
[2020-09-21] MEDS: DULoxetine 30 MG CAPSULE PO SCH ×2 (08:13→21:11)
[2020-09-21] MEDS: metFORMIN 500 MG TAB.XL.24H PO SCH ×2 (08:13→16:23)
[2020-09-21] MEDS: ATORVASTATIN 40 MG TABLET PO SCH (08:13)
[2020-09-21] MEDS: GABAPENTIN 400 MG CAPSULE PO SCH ×4 (08:13→21:11)
[2020-09-21] MEDS: OLMESARTAN MEDOXOMIL 20 MG TABLET PO SCH (08:14)
[2020-09-21] MEDS: DOCUSATE SODIUM 100 MG CAPSULE PO SCH ×2 (08:19→20:49)
--- NOTE | 2020-09-21 08:32 | Orthopedic Progress Note ---
SUBJECTIVE Subjective Patient information: Note initiated : 09/21/20 at 8:27 am Service Date, if different from initiated Date: [] Patient: Amber Weiss 55 y/o F admitted on 09/17/20 for Lt Foot Infection. Chief Complaint: [left foot infection] Patient reports feeling well generally. She is eager to return to home when possible. Constitutional Vitals: Vital Signs Temp Pulse Resp BP Pulse Ox 97 F 60 16 111/58 93 09/21/20 07:32 09/21/20 07:32 09/21/20 07:32 09/21/20 07:32 09/21/20 07:32 Period Temp Pulse Resp BP Sys/Schultz Pulse Ox Last 24 Hr 97 F-97.6 F 60-91 16-18 108-128/52-67 91-93 Intake and Output 09/20/20 09/21/20 09/21/20 21:59 05:59 13:59 Intake Total 800 250 Output Total 1400 2000 Balance -600 -1750 Weight 403 lb 4 oz Intake & Output: Intake & Output 09/20/20 09/21/20 09/21/20 21:59 05:59 13:59 Intake Total 800 250 Output Total 1400 2000 Balance -600 -1750 Weight 403 lb 4 oz Intake: IV 50 100 Zosyn 3.375 gm In Dextrose 5% 50 100 in Water 50 ml @ 100 mls/hr IV Q6H [facility] Rx#:[id number] Oral 750 150 Output: Void Amount 1400 2000 Other: Meal Dinner Percent of Meal Consumed 100% Feeding Ability Independent Urine Appearance Clear Clear Urine Color Dark Yellow Pale Urine Odor Normal Expanded Lower Extremity Exam Foot/Toe exam: Present erythema and swelling (Open wound with devitalized tissue on the medial aspect of the left first metatarsal phalangeal joint of the left foot. Plantar ulceration that probes to medial sesamoid bone. Mild serous discharge. ) OBJ DATA Labs CBC & Chem 7: 09/19/20 05:38 09/18/20 05:15 Labs: Abnormal Lab Results 09/20/20 09/19/20 08:50 05:38 Hgb 9.1 L Hct 29.6 L C-Reactive Protein 5.60 H Meds: Medications Acetaminophen (Acetaminophen 325 Mg Tablet) 650 mg PO Q6HP PRN PRN Reason: PAIN/FEVER > 101 Hydrocodone Bitart/Acetaminophen (Hydrocodone/Apap 10/325mg Tablet) 1 tab PO QIDP PRN; Protocol PRN Reason: Pain Last Admin: 09/21/20 03:05 Dose: 1 tab Documented by: Albuterol/Ipratropium (Ipratropium/Albuterol 3 Ml Ampul.Neb) 3 ml NEB Q4HP PRN PRN Reason: Shortness Of Breath Atorvastatin Calcium (Atorvastatin 40 Mg Tablet) 40 mg PO QDAY [facility] Last Admin: 09/21/20 08:13 Dose: 40 mg Documented by: Baclofen (Baclofen 10 Mg Tablet) 10 mg PO TID [facility] Last Admin: 09/21/20 08:13 Dose: 10 mg Documented by: Dextrose (Dextrose 50% 50 Ml Vial) 0 ml IV UD PRN PRN Reason: Hypoglycemia Diagnostic Test (Pha) (Accu-Chek 1 Each Strip) 1 each FS ACHS [facility] Last Admin: 09/21/20 07:11 Dose: 1 each Documented by: Docusate Sodium (Docusate Sodium 100 Mg Capsule) 100 mg PO BID [facility] Last Admin: 09/21/20 08:19 Dose: Not Given Documented by: Duloxetine HCl (Duloxetine 30 Mg Capsule) 60 mg PO BID [facility] Last Admin: 09/21/20 08:13 Dose: 60 mg Documented by: Gabapentin (Gabapentin 400 Mg Capsule) 800 mg PO QID [facility] Last Admin: 09/21/20 08:13 Dose: 800 mg Documented by: Glucose (Dextrose 31 Gm Oral.Susp) 15 gm PO PRN PRN PRN Reason: Hypoglycemia Heparin Sodium (Porcine) (Heparin 5,000 Unit/Ml Vial) 5,000 unit SQ Q12 [facility] Last Admin: 09/21/20 08:13 Dose: 5,000 unit Documented by: Hydrochlorothiazide (Hydrochlorothiazide 12.5 Mg Capsule) 12.5 mg PO DAILY [facility] Last Admin: 09/21/20 08:13 Dose: 12.5 mg Documented by: Hydrocortisone (Hydrocortisone 10 Mg Tablet) 5 mg PO QPMCC [facility] Last Admin: 09/20/20 16:47 Dose: 5 mg Documented by: Hydrocortisone (Hydrocortisone 10 Mg Tablet) 10 mg PO QAMCC [facility] Last Admin: 09/21/20 08:13 Dose: 10 mg Documented by: Potassium Chloride 40 meq/ (Dextrose) 520 mls @ 130 mls/hr IV UD PRN PRN Reason: Potassium < 3 Magnesium Sulfate (Magnesium Sulfate) 2 gm in 50 mls @ 50 mls/hr IV UD PRN PRN Reason: Magnesium </= 1.6 Piperacillin Sod/Tazobactam (Sod 3.375 gm/ Dextrose) 50 mls @ 100 mls/hr IV Q6H [facility]; Protocol Last Infusion: 09/21/20 05:45 Dose: Infused Documented by: Insulin Human Lispro (Insulin Lispro 1 Unit/0.01 Ml Unit) 0 unit SQ ACHS [facility]; Protocol Last Admin: 09/21/20 07:12 Dose: Not Given Documented by: Lactulose (Lactulose 20 Gm/30 Ml Oral.Dione) 20 gm PO DAILYP PRN PRN Reason: Constipation Metformin HCl (Metformin 500 Mg Tab.Xl.24h) 1,000 mg PO BIDCC [facility] Last Admin: 09/21/20 08:13 Dose: 1,000 mg Documented by: Buprenorphine ( (Subutex) 8 Mg Tab) 2 mg PO TID [facility] Last Admin: 09/20/20 21:52 Dose: 2 mg Documented by: Olmesartan (Olmesartan Medoxomil 20 Mg Tablet) 40 mg PO DAILY [facility] Last Admin: 09/21/20 08:14 Dose: 40 mg Documented by: Ondansetron HCl (Ondansetron 4 Mg/2 Ml Vial) 4 mg IV Q4HP PRN PRN Reason: Nausea And Vomiting Polyethylene Glycol (Polyethylene Glycol 3350 17 Gm Packet) 17 gm PO DAILYP PRN PRN Reason: Constipation Potassium Chloride (Potassium Chloride 20 Meq Tablet) 40 meq PO UD PRN PRN Reason: Potssium is 3-3.5 Potassium Chloride (Potassium Chloride 20 Meq Tablet) 40 meq PO UD PRN PRN Reason: Potassium < 3 Senna (Sennosides 1 Tablet) 2 tab PO DAILYP PRN PRN Reason: Constipation Sodium Chloride (0.9 % Sodium Chloride 10 Ml Syringe) 10 ml IV Q8 [facility] Last Admin: 09/21/20 05:14 Dose: 10 ml Documented by: A/P Time Spent With Patient Time: Total time spent is greater than 50% in coordination of care (as documented) at patient's floor/unit and/or counseling patient: - CRP pending, 9.2,5.6 previous - Xray taken at 0840 today - concern for osteomyelitis of the medial sesamoid bone - Patient will have removal of medial sesamoid bone due to osteomyelitis and pressure ulceration under first metatarsal phalangeal joint - may be done out patient - Continue daily dressing changes: saline packing and gauze - Will have wound vac placed when cellulitis decreases - Serial debridement of devitalized tissue to follow - may be done out patient - Patient to follow-up with podiatry clinic upon discharge from hospital - Twenty (20) minutes spent with patient, documentation, and reading diagnostic imaging
--- NOTE | 2020-09-21 14:26 | XRay Report ---
CLINICAL INFORMATION: serial xray for presense of osteomyelitis COMPARISON: Left foot films five days prior-09/16/2020. FINDINGS: Moderate metatarsus abductus and pes planus deformities appreciated. A small exostosis projects from the medial base of the first distal phalanx. No evidence of osteomyelitis. There is moderate soft tissue swelling in the forefoot particularly over the first MTP joint. The first 20 16 mm cutaneous ulceration in the dorsal soft tissues over the distal first metatarsal which is new No radiopaque foreign body. IMPRESSION: Moderate forefoot soft tissue swelling especially medially over the first MTP. 16 mm ulceration in the dorsal subcutaneous soft tissues over the first MTP which is new. Findings compatible cellulitis. No evidence of osteomyelitis. Other chronic findings-as described Interpreted and Authenticated by: Farshad Castro 09/21/20
--- NOTE | 2020-09-21 16:04 | Internal Med Progress Note ---
SUBJECTIVE Subjective Patient information: Note initiated : 09/21/20 at 4:02 pm Service Date, if different from initiated Date: [] Patient: Amber Weiss 55 y/o F admitted on 09/17/20 for Lt Foot Infection. Chief Complaint: [] Interval history: History of present illness: Ms. Weiss is a 55 year old F Who presented to the ED last night with increased redness and swelling of her left foot and a white spot. Located on the ball of her foot. She was afebrile had a very mild leukocytosis. Vital signs are stable. Instead of being admitted she chose to follow-up with her platform consultant in the morning she did with Dr. Mahajan. He evaluated her and felt she needed to be admitted for surgical I&D. The white spot opened up and started draining a white thick purulent substance. 09/18 When I asked if she had a good sleep she laughed at me, but seemed in good spirits this morning. No new pains or complaints. Scheduled for I&D today. 09/19-continues on Zosyn, bone visible concerning for osteomyelitis, awaiting surgical cultures. 09/20-stable, awaiting wound culture results. Confirmed with staff that bone cultures were not taken. CRP 5.6, down from 9.2. Plan to consult ID on Tuesday. 09/21-patient feels ok, ID consult tomorrow. Head: Atraumatic, normal inspection. Eyes: normal appearance, no scleral icterus. Neck: full ROM Respiratory: no respiratory distress. Cardiovascular: normal rate and rhythm, S1, S2. GI/Abdominal: soft, nontender, no guarding. Extremities: left foot wound s/p I&D, covered with clean bandage. Neurological: CN II-XII intact, intact motor, intact sensation. Psychiatric: normal mood. Skin: warm, normal color Constitutional Vitals: Vital Signs Temp Pulse Resp BP Pulse Ox 97.4 F 83 16 116/68 92 09/21/20 11:34 09/21/20 11:34 09/21/20 11:34 09/21/20 11:34 09/21/20 11:34 Period Temp Pulse Resp BP Sys/Schultz Pulse Ox Last 24 Hr 97 F-97.4 F 60-91 16-18 111-123/53-68 91-93 Intake and Output 09/21/20 09/21/20 09/21/20 05:59 13:59 21:59 Intake Total 250 240 50 Output Total 1999 600 Balance -1750 240 -550 Intake & Output: Intake & Output 09/21/20 09/21/20 09/21/20 05:59 13:59 21:59 Intake Total 250 240 50 Output Total 2000 600 Balance -1750 240 -550 Intake: IV 100 50 Zosyn 3.375 gm In Dextrose 5% 100 50 in Water 50 ml @ 100 mls/hr IV Q6H [facility] Rx#:[id number] Oral 150 240 Output: Void Amount 1999 600 Other: Meal Breakfast Lunch Percent of Meal Consumed 75% 75% Feeding Ability Independent Independent Urine Appearance Clear Clear Urine Color Pale Bright Yellow Urine Odor Normal OBJ DATA Labs CBC & Chem 7: 09/19/20 05:38 09/18/20 05:15 Labs: Abnormal Lab Results 09/20/20 09/19/20 08:50 05:38 Hgb 9.1 L Hct 29.6 L C-Reactive Protein 5.60 H Meds: Medications Acetaminophen (Acetaminophen 325 Mg Tablet) 650 mg PO Q6HP PRN PRN Reason: PAIN/FEVER > 101 Hydrocodone Bitart/Acetaminophen (Hydrocodone/Apap 10/325mg Tablet) 1 tab PO QIDP PRN; Protocol PRN Reason: Pain Last Admin: 09/21/20 03:05 Dose: 1 tab Documented by: Albuterol/Ipratropium (Ipratropium/Albuterol 3 Ml Ampul.Neb) 3 ml NEB Q4HP PRN PRN Reason: Shortness Of Breath Atorvastatin Calcium (Atorvastatin 40 Mg Tablet) 40 mg PO QDAY [facility] Last Admin: 09/21/20 08:13 Dose: 40 mg Documented by: Baclofen (Baclofen 10 Mg Tablet) 10 mg PO TID [facility] Last Admin: 09/21/20 15:21 Dose: 10 mg Documented by: Dextrose (Dextrose 50% 50 Ml Vial) 0 ml IV UD PRN PRN Reason: Hypoglycemia Diagnostic Test (Pha) (Accu-Chek 1 Each Strip) 1 each FS ACHS [facility] Last Admin: 09/21/20 11:45 Dose: 1 each Documented by: Docusate Sodium (Docusate Sodium 100 Mg Capsule) 100 mg PO BID [facility] Last Admin: 09/21/20 08:19 Dose: Not Given Documented by: Duloxetine HCl (Duloxetine 30 Mg Capsule) 60 mg PO BID [facility] Last Admin: 09/21/20 08:13 Dose: 60 mg Documented by: Gabapentin (Gabapentin 400 Mg Capsule) 800 mg PO QID [facility] Last Admin: 09/21/20 12:40 Dose: 800 mg Documented by: Glucose (Dextrose 31 Gm Oral.Susp) 15 gm PO PRN PRN PRN Reason: Hypoglycemia Heparin Sodium (Porcine) (Heparin 5,000 Unit/Ml Vial) 5,000 unit SQ Q12 [facility] Last Admin: 09/21/20 08:13 Dose: 5,000 unit Documented by: Hydrochlorothiazide (Hydrochlorothiazide 12.5 Mg Capsule) 12.5 mg PO DAILY [facility] Last Admin: 09/21/20 08:13 Dose: 12.5 mg Documented by: Hydrocortisone (Hydrocortisone 10 Mg Tablet) 5 mg PO QPMCC [facility] Last Admin: 09/20/20 16:47 Dose: 5 mg Documented by: Hydrocortisone ([facility]is[facility] 10 Mg [facility]t) [facility] Admin: 09/21/20 08:13 Dose: 10 mg Documented by: Potassium Chloride 40 meq/ (Dextrose) 520 mls @ 130 mls/hr IV UD PRN PRN Reason: Potassium < 3 Magnesium Sulfate (Magnesium Sulfate) 2 gm in 50 mls @ 50 mls/hr IV UD PRN PRN Reason: Magnesium </= 1.6 Piperacillin Sod/Tazobactam (Sod 3.375 gm/ Dextrose) 50 mls @ 100 mls/hr IV Q6H [facility]; Protocol Last Infusion: 09/21/20 14:11 Dose: Infused Documented by: Insulin Human Lispro (Insulin Lispro 1 Unit/0.01 Ml Unit) 0 unit SQ ACHS [facility]; Protocol Last Admin: 09/21/20 11:45 Dose: Not Given Documented by: Lactulose (Lactulose 20 Gm/30 Ml Oral.Dione) 20 gm PO DAILYP PRN PRN Reason: Constipation Metformin HCl (Metformin 500 Mg Tab.Xl.24h) 1,000 mg PO BIDCC [facility] Last Admin: 09/21/20 08:13 Dose: 1,000 mg Documented by: Buprenorphine ( (Subutex) 8 Mg Tab) 2 mg PO TID [facility] Last Admin: 09/21/20 15:21 Dose: 2 mg Documented by: Olmesartan (Olmesartan Medoxomil 20 Mg Tablet) 40 mg PO DAILY [facility] Last Admin: 09/21/20 08:14 Dose: 40 mg Documented by: Ondansetron HCl (Ondansetron 4 Mg/2 Ml Vial) 4 mg IV Q4HP PRN PRN Reason: Nausea And Vomiting Polyethylene Glycol (Polyethylene Glycol 3350 17 Gm Packet) 17 gm PO DAILYP PRN PRN Reason: Constipation Potassium Chloride (Potassium Chloride 20 Meq Tablet) 40 meq PO UD PRN PRN Reason: Potssium is 3-3.5 Potassium Chloride (Potassium Chloride 20 Meq Tablet) 40 meq PO UD PRN PRN Reason: Potassium < 3 Senna (Sennosides 1 Tablet) 2 tab PO DAILYP PRN PRN Reason: Constipation Sodium Chloride (0.9 % Sodium Chloride 10 Ml Syringe) 10 ml IV Q8 [facility] Last Admin: 09/21/20 12:40 Dose: 10 ml Documented by: A/P Narrative A/P Narrative: Assessment: 85-year-old female with a history of hypertension, hyperlipidemia, 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 *Left foot diabetic wound infection/cellulitis/abscess *Concern for osteomyelitis of right foot w/ visible bone (CRP only 9.2->5.6) *DM w/neuropathy: *Anemia, chronic *HTN/HLD: *Depression/anxiety: *Adrenal insufficiency: *Obesity: P: -Dr. Mahajan from podiatry following post I&D. -Antibiotics, pending BC/WC, currently on Zosyn. -ID consult on Tuesday -wound care -SSI -Continue home BP meds -Continue home psych meds -PT/OT -ppx: heparin full code Time Spent With Patient Time: Total time spent is greater than 50% in coordination of care (as documented) at patient's floor/unit and/or counseling patient: QUALITY VTE Deep Vein Thrombosis/Pulmonary Embolism Present on Admission: No
[2020-09-22] MEDS: PIPERACILLIN SODIUM/TAZOBACTAM 3.375 GM in DEXTROSE 5% IN WATER 50 ML IV SCH ×2 (05:21→11:49)
[2020-09-22] MEDS: 0.9 % SODIUM CHLORIDE 10 ML SYRINGE IV SCH ×4 (05:22→21:00)
[2020-09-22] MEDS: INSULIN LISPRO 1 UNIT/0.01 ML UNIT SQ SCH ×4 (08:37→21:18)
[2020-09-22] MEDS: metFORMIN 500 MG TAB.XL.24H PO SCH ×2 (08:39→16:46)
[2020-09-22] MEDS: ATORVASTATIN 40 MG TABLET PO SCH (08:39)
[2020-09-22] MEDS: HEPARIN 5,000 UNIT/ML VIAL SQ SCH ×2 (08:39→20:59)
[2020-09-22] MEDS: GABAPENTIN 400 MG CAPSULE PO SCH ×4 (08:39→20:59)
[2020-09-22] MEDS: OLMESARTAN MEDOXOMIL 20 MG TABLET PO SCH (08:39)
[2020-09-22] MEDS: DULoxetine 30 MG CAPSULE PO SCH ×2 (08:40→21:00)
[2020-09-22] MEDS: HYDROCORTISONE 10 MG TABLET PO SCH ×2 (08:40→16:46)
[2020-09-22] MEDS: BACLOFEN 10 MG TABLET PO SCH ×3 (08:40→21:00)
[2020-09-22] MEDS: HYDROCHLOROTHIAZIDE 12.5 MG CAPSULE PO SCH (08:40)
[2020-09-22] MEDS: DOCUSATE SODIUM 100 MG CAPSULE PO SCH ×2 (08:41→21:18)
[2020-09-22] MEDS ORDERED: 0.9 % SODIUM CHLORIDE 10 ML SYRINGE IV PRN (11:10)
[2020-09-22] MEDS: HYDROcodone/APAP 10/325MG TABLET PO PRN (11:49)
--- NOTE | 2020-09-22 12:48 | Internal Med Progress Note ---
SUBJECTIVE Subjective Patient information: Note initiated : 09/22/20 at 12:47 pm Service Date, if different from initiated Date: [] Patient: Amber Weiss 55 y/o F admitted on 09/17/20 for Lt Foot Infection. Chief Complaint: [] Interval history: History of present illness: Ms. Weiss is a 55 year old F Who presented to the ED last night with increased redness and swelling of her left foot and a white spot. Located on the ball of her foot. She was afebrile had a very mild leukocytosis. Vital signs are stable. Instead of being admitted she chose to follow-up with her fisher trap in the morning she did with Dr. Mahajan. He evaluated her and felt she needed to be admitted for surgical I&D. The white spot opened up and started draining a white thick purulent substance. 09/18 When I asked if she had a good sleep she laughed at me, but seemed in good spirits this morning. No new pains or complaints. Scheduled for I&D today. 09/19-continues on Zosyn, bone visible concerning for osteomyelitis, awaiting surgical cultures. 09/20-stable, awaiting wound culture results. Confirmed with staff that bone cultures were not taken. CRP 5.6, down from 9.2. Plan to consult ID on Tuesday. 09/21-patient feels ok, ID consult tomorrow. 09/22-Dr. Centeno is on vacation so there is no infectious disease splunk consultant available. Plan is to transition to Invanz for once a day dosing via PICC line with early ID follow up. Head: Atraumatic, normal inspection. Eyes: normal appearance, no scleral icterus. Neck: full ROM Respiratory: no respiratory distress. Cardiovascular: normal rate and rhythm, S1, S2. GI/Abdominal: soft, nontender, no guarding. Extremities: left foot wound s/p I&D, covered with clean bandage. Neurological: CN II-XII intact, intact motor, intact sensation. Psychiatric: normal mood. Skin: warm, normal color Constitutional Vitals: Vital Signs Temp Pulse Resp BP Pulse Ox 96.9 F L 69 18 104/55 93 09/22/20 12:00 09/22/20 12:00 09/22/20 12:00 09/22/20 12:00 09/22/20 12:00 Period Temp Pulse Resp BP Sys/Schultz Pulse Ox Last 24 Hr 96.9 F-98.1 F 69-87 16-18 104-131/54-72 90-94 Intake and Output 09/21/20 09/22/20 09/22/20 21:59 05:59 13:59 Intake Total 350 1350 240 Output Total 1999 1050 600 Balance -1650 300 -360 Weight 180.615 kg Intake & Output: Intake & Output 09/21/20 09/22/20 09/22/20 21:59 05:59 13:59 Intake Total 350 1350 240 Output Total 1999 1050 600 Balance -1650 300 -360 Weight 180.615 kg Intake: IV 100 100 Zosyn 3.375 gm In Dextrose 5% 100 100 in Water 50 ml @ 100 mls/hr IV Q6H [facility] Rx#:[id number] Oral 250 1250 240 Output: Void Amount 1999 1050 600 Other: Meal Dinner Breakfast Percent of Meal Consumed 100% 100% Feeding Ability Independent Independent Urine Appearance Clear Clear Urine Color Straw Bright Yellow Urine Odor Normal Normal Stool Size Moderate Large Stool Color Brown Brown Stool Consistency Soft Soft OBJ DATA Labs CBC & Chem 7: 09/19/20 05:38 09/18/20 05:15 Labs: Abnormal Lab Results 09/20/20 08:50 C-Reactive Protein 5.60 H Meds: Medications Acetaminophen (Acetaminophen 325 Mg Tablet) 650 mg PO Q6HP PRN PRN Reason: PAIN/FEVER > 101 Hydrocodone Bitart/Acetaminophen (Hydrocodone/Apap 10/325mg Tablet) 1 tab PO QIDP PRN; Protocol PRN Reason: Pain Last Admin: 09/22/20 11:49 Dose: 1 tab Documented by: Albuterol/Ipratropium (Ipratropium/Albuterol 3 Ml Ampul.Neb) 3 ml NEB Q4HP PRN PRN Reason: Shortness Of Breath Atorvastatin Calcium (Atorvastatin 40 Mg Tablet) 40 mg PO QDAY [facility] Last Admin: 09/22/20 08:39 Dose: 40 mg Documented by: Baclofen (Baclofen 10 Mg Tablet) 10 mg PO TID [facility] Last Admin: 09/22/20 08:40 Dose: 10 mg Documented by: Dextrose (Dextrose 50% 50 Ml Vial) 0 ml IV UD PRN PRN Reason: Hypoglycemia Diagnostic Test (Pha) (Accu-Chek 1 Each Strip) 1 each FS ACHS [facility] Last Admin: 09/22/20 12:03 Dose: 1 each Documented by: Docusate Sodium (Docusate Sodium 100 Mg Capsule) 100 mg PO BID [facility] Last Admin: 09/22/20 08:41 Dose: Not Given Documented by: Duloxetine HCl (Duloxetine 30 Mg Capsule) 60 mg PO BID [facility] Last Admin: 09/22/20 08:40 Dose: 60 mg Documented by: Gabapentin (Gabapentin 400 Mg Capsule) 800 mg PO QID [facility] Last Admin: 09/22/20 12:04 Dose: 800 mg Documented by: Glucose (Dextrose 31 Gm Oral.Susp) 15 gm PO PRN PRN PRN Reason: Hypoglycemia Heparin Sodium (Porcine) (Heparin 5,000 Unit/Ml Vial) 5,000 unit SQ Q12 [facility] Last Admin: 09/22/20 08:39 Dose: 5,000 unit Documented by: Heparin Sodium (Porcine) (Heparin Flush 10 Units/Ml 5 Ml Syringe) 2 ml IV Q12 [facility] Hydrochlorothiazide (Hydrochlorothiazide 12.5 Mg Capsule) 12.5 mg PO DAILY [facility] Last Admin: 09/22/20 08:40 Dose: 12.5 mg Documented by: Hydrocortisone (Hydrocortisone 10 Mg Tablet) 5 mg PO QPMCC [facility] Last Admin: 09/21/20 16:23 Dose: 5 mg Documented by: Hydrocortisone (Hydrocortisone 10 Mg Tablet) 10 mg PO QAC [facility] Last Admin: 09/22/20 08:40 Dose: 10 mg Documented by: Potassium Chloride 40 meq/ (Dextrose) 520 mls @ 130 mls/hr IV UD PRN PRN Reason: Potassium < 3 Magnesium Sulfate (Magnesium Sulfate) 2 gm in 50 mls @ 50 mls/hr IV UD PRN PRN Reason: Magnesium </= 1.6 Piperacillin Sod/Tazobactam (Sod 3.375 gm/ Dextrose) 50 mls @ 100 mls/hr IV Q6H [facility]; Protocol Last Admin: 09/22/20 11:49 Dose: 100 mls/hr Documented by: Insulin Human Lispro (Insulin Lispro 1 Unit/0.01 Ml Unit) 0 unit SQ ACHS [facility]; Protocol Last Admin: 09/22/20 12:04 Dose: Not Given Documented by: Lactulose (Lactulose 20 Gm/30 Ml Oral.Dione) 20 gm PO DAILYP PRN PRN Reason: Constipation Metformin HCl (Metformin 500 Mg Tab.Xl.24h) 1,000 mg PO BIDCC [facility] Last Admin: 09/22/20 08:39 Dose: 1,000 mg Documented by: Buprenorphine ( (Subutex) 8 Mg Tab) 2 mg PO TID [facility] Last Admin: 09/22/20 09:45 Dose: 2 mg Documented by: Olmesartan (Olmesartan Medoxomil 20 Mg Tablet) 40 mg PO DAILY [facility] Last Admin: 09/22/20 08:39 Dose: 40 mg Documented by: Ondansetron HCl (Ondansetron 4 Mg/2 Ml Vial) 4 mg IV Q4HP PRN PRN Reason: Nausea And Vomiting Polyethylene Glycol (Polyethylene Glycol 3350 17 Gm Packet) 17 gm PO DAILYP PRN PRN Reason: Constipation Potassium Chloride (Potassium Chloride 20 Meq Tablet) 40 meq PO UD PRN PRN Reason: Potssium is 3-3.5 Potassium Chloride (Potassium Chloride 20 Meq Tablet) 40 meq PO UD PRN PRN Reason: Potassium < 3 Senna (Sennosides 1 Tablet) 2 tab PO DAILYP PRN PRN Reason: Constipation Sodium Chloride (0.9 % Sodium Chloride 10 Ml Syringe) 10 ml IV Q8 [facility] Last Admin: 09/22/20 05:22 Dose: 10 ml Documented by: Sodium Chloride (0.9 % Sodium Chloride 10 Ml Syringe) 10 ml IV UD PRN PRN Reason: FLUSH Sodium Chloride (0.9 % Sodium Chloride 10 Ml Syringe) 10 ml IV Q12 [facility] A/P Narrative A/P Narrative: Assessment: 85-year-old female with a history of hypertension, hyperlipidemia, 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 *Left foot diabetic wound infection/cellulitis/abscess *Concern for osteomyelitis of right foot w/ visible bone (CRP only 9.2->5.6) *DM w/neuropathy: *Anemia, chronic *HTN/HLD: *Depression/anxiety: *Adrenal insufficiency: *Obesity: P: -Dr. Mahajan from podiatry following post I&D. -Place PICC. -Change to Ertapenem. -ID follow up after discharge. -wound care -SSI -Continue home BP meds -Continue home psych meds -PT/OT -ppx: heparin full code Time Spent With Patient Time: Total time spent is greater than 50% in coordination of care (as documented) at patient's floor/unit and/or counseling patient: QUALITY VTE Deep Vein Thrombosis/Pulmonary Embolism Present on Admission: No
[2020-09-22] MEDS: ERTAPENEM 1 GM in 0.9 % SODIUM CHLORIDE 50 ML IV SCH (13:46)
[2020-09-22] MEDS ORDERED: LORazepam 2 MG/ML VIAL IV ONE (14:11)
[2020-09-23] MEDS: HYDROcodone/APAP 10/325MG TABLET PO PRN (04:11)
[2020-09-23] MEDS: 0.9 % SODIUM CHLORIDE 10 ML SYRINGE IV SCH ×5 (04:11→14:37)
[2020-09-23 07:30] LABS: Basophils # (Auto) 0.06 K/mcL (0.00-0.20); Basophils % (Auto) 0.6 % (0.0-2.0); Eosinophils # (Auto) 0.23 K/mcL (0.00-0.70); Eosinophils % (Auto) 2.2 % (0.0-7.0); Hematocrit 36.1 % (36.0-48.0); Lymphocytes # (Auto) 2.85 K/mcL (1.50-4.80); Lymphocytes % (Auto) 26.7 % (15.0-49.0); Mean Cell Volume 89.4 fL (80.0-100.0); Mean Corpuscular HGB Conc 30.5 g/dL (31.0-36.0); Mean Platelet Volume 8.9 fL (7.4-10.4); Monocytes # (Auto) 0.69 K/mcL (0.10-0.90); Monocytes % (Auto) 6.5 % (1.0-12.0); Platelet Count 472 K/mcL (140-440); RBC 4.04 M/mcL (4.00-5.20); Red Cell Distribution Width 16.6 % (11.5-14.5); WBC 10.7 K/mcL (4.5-11.0)
[2020-09-23] MEDS: INSULIN LISPRO 1 UNIT/0.01 ML UNIT SQ SCH ×2 (07:40→12:33)
[2020-09-23 07:59] LABS: Blood Urea Nitrogen 14 mg/dL (6-20); Calcium 9.9 mg/dL (8.6-10.4); Carbon Dioxide 31 mmol/L (22-30); Chloride 96 mmol/L (96-108); Glomerular Filtration Rate 101; Glucose 112 mg/dL (70-105); Phosphorous 3.5 mg/dL (2.5-4.5)
[2020-09-23] MEDS ORDERED: LORazepam 2 MG/ML VIAL IV ONE (08:00)
[2020-09-23] MEDS: HEPARIN 5,000 UNIT/ML VIAL SQ SCH (08:12)
[2020-09-23] MEDS: ATORVASTATIN 40 MG TABLET PO SCH (08:12)
[2020-09-23] MEDS: HYDROCORTISONE 10 MG TABLET PO SCH (08:12)
[2020-09-23] MEDS: OLMESARTAN MEDOXOMIL 20 MG TABLET PO SCH (08:12)
[2020-09-23] MEDS: metFORMIN 500 MG TAB.XL.24H PO SCH (08:12)
[2020-09-23] MEDS: HYDROCHLOROTHIAZIDE 12.5 MG CAPSULE PO SCH (08:12)
[2020-09-23] MEDS: DULoxetine 30 MG CAPSULE PO SCH (08:13)
[2020-09-23] MEDS: GABAPENTIN 400 MG CAPSULE PO SCH ×2 (08:13→14:37)
[2020-09-23] MEDS: BACLOFEN 10 MG TABLET PO SCH ×2 (08:13→14:37)
[2020-09-23] MEDS: DOCUSATE SODIUM 100 MG CAPSULE PO SCH (08:13)
--- NOTE | 2020-09-23 10:45 | XRay Report ---
INDICATION: PICC LINE PLacement TECHNIQUE: AP portable supine chest x-ray COMPARISON: None FINDINGS:Left-sided PICC line with its tip at the junction of the brachiocephalic vein and superior vena cava Lungs:Lungs are negative. No focal pulmonary parenchymal infiltrate or mass Heart, vascular:Heart size is probably within normal limits when allowances are made for large size and AP supine positioning Mediastinum, lang:No mediastinal widening. No hilar mass Pleura:No pleural fluid. No pleural-based mass or calcification Skeletal:Negative. IMPRESSION: Left-sided PICC line with its tip at the junction of the brachiocephalic vein and superior cava. Interpreted and Authenticated by: Farshad Lu 09/23/20
[2020-09-23] MEDS: ERTAPENEM 1 GM in 0.9 % SODIUM CHLORIDE 50 ML IV SCH (11:06)
--- NOTE | 2020-09-23 11:18 | Internal Med Progress Note ---
SUBJECTIVE Subjective Patient information: Note initiated : 09/23/20 at 11:16 am Service Date, if different from initiated Date: [] Patient: Amber Weiss 55 y/o F admitted on 09/17/20 for Lt Foot Infection. Chief Complaint: [] Interval history: History of present illness: Ms. Weiss is a 55 year old F Who presented to the ED last night with increased redness and swelling of her left foot and a white spot. Located on the ball of her foot. She was afebrile had a very mild leukocytosis. Vital signs are stable. Instead of being admitted she chose to follow-up with her back feeder plywood layup line in the morning she did with Dr. Mahajan. He evaluated her and felt she needed to be admitted for surgical I&D. The white spot opened up and started draining a white thick purulent substance. 09/18 When I asked if she had a good sleep she laughed at me, but seemed in good spirits this morning. No new pains or complaints. Scheduled for I&D today. 09/19-continues on Zosyn, bone visible concerning for osteomyelitis, awaiting surgical cultures. 09/20-stable, awaiting wound culture results. Confirmed with staff that bone cultures were not taken. CRP 5.6, down from 9.2. Plan to consult ID on Tuesday. 09/21-patient feels ok, ID consult tomorrow. 09/22-Dr. Centeno is on vacation so there is no infectious disease python consultant available. Plan is to transition to Invanz for once a day dosing via PICC line with early ID follow up. 09/23-on Invanz, multiple organisms growing but cultures not final yet, options for discharge are Invanz or Ceftriaxone daily via PICC line and ID follow up for outpatient management. Head: Atraumatic, normal inspection. Eyes: normal appearance, no scleral icterus. Neck: full ROM Respiratory: no respiratory distress. Cardiovascular: normal rate and rhythm, S1, S2. GI/Abdominal: soft, nontender, no guarding. Extremities: left foot wound s/p I&D, covered with clean bandage. Neurological: CN II-XII intact, intact motor, intact sensation. Psychiatric: normal mood. Skin: warm, normal color Constitutional Vitals: Vital Signs Temp Pulse Resp BP Pulse Ox 97.1 F 72 14 133/57 92 09/23/20 08:00 09/23/20 08:00 09/23/20 08:00 09/23/20 08:00 09/23/20 08:00 Period Temp Pulse Resp BP Sys/Schultz Pulse Ox Last 24 Hr 96.9 F-98.4 F 69-84 12-18 104-133/51-74 92-96 Intake and Output 09/22/20 09/23/20 09/23/20 21:59 05:59 13:59 Intake Total 1100 300 Output Total 1000 900 200 Balance 100 -600 -200 Weight 179.214 kg Intake & Output: Intake & Output 09/22/20 09/23/20 09/23/20 21:59 05:59 13:59 Intake Total 1100 300 Output Total 1000 900 200 Balance 100 -600 -200 Weight 179.214 kg Intake: IV 50 INVanz 1 GM In Sodium Chloride 50 0.9% 50 ml @ 100 mls/hr IV Q24H [facility] Rx#:[id number] Oral 1050 300 Output: Void Amount 1000 900 200 Other: Meal Dinner Percent of Meal Consumed 100% Feeding Ability Independent Urine Appearance Clear Clear Urine Color Dark Yellow Bright Yellow Urine Odor Normal # Voids 1 OBJ DATA Labs CBC & Chem 7: 09/23/20 06:20 09/23/20 06:20 Labs: Abnormal Lab Results 09/23/20 09/23/20 06:20 06:20 Hgb 11.0 L MCHC 30.5 L RDW 16.6 H Plt Count 472 H Carbon Dioxide 31 H Glucose 112 H Meds: Medications Acetaminophen (Acetaminophen 325 Mg Tablet) 650 mg PO Q6HP PRN PRN Reason: PAIN/FEVER > 101 Hydrocodone Bitart/Acetaminophen (Hydrocodone/Apap 10/325mg Tablet) 1 tab PO QIDP PRN; Protocol PRN Reason: Pain Last Admin: 09/23/20 04:11 Dose: 1 tab Documented by: Albuterol/Ipratropium (Ipratropium/Albuterol 3 Ml Ampul.Neb) 3 ml NEB Q4HP PRN PRN Reason: Shortness Of Breath Atorvastatin Calcium (Atorvastatin 40 Mg Tablet) 40 mg PO QDAY [facility] Last Admin: 09/23/20 08:12 Dose: 40 mg Documented by: Baclofen (Baclofen 10 Mg Tablet) 10 mg PO TID [facility] Last Admin: 09/23/20 08:13 Dose: 10 mg Documented by: Dextrose (Dextrose 50% 50 Ml Vial) 0 ml IV UD PRN PRN Reason: Hypoglycemia Diagnostic Test (Pha) (Accu-Chek 1 Each Strip) 1 each FS ACHS [facility] Last Admin: 09/23/20 07:39 Dose: 1 each Documented by: Docusate Sodium (Docusate Sodium 100 Mg Capsule) 100 mg PO BID [facility] Last Admin: 09/23/20 08:13 Dose: Not Given Documented by: Duloxetine HCl (Duloxetine 30 Mg Capsule) 60 mg PO BID [facility] Last Admin: 09/23/20 08:13 Dose: 60 mg Documented by: Gabapentin (Gabapentin 400 Mg Capsule) 800 mg PO QID [facility] Last Admin: 09/23/20 08:13 Dose: 800 mg Documented by: Glucose (Dextrose 31 Gm Oral.Susp) 15 gm PO PRN PRN PRN Reason: Hypoglycemia Heparin Sodium (Porcine) (Heparin 5,000 Unit/Ml Vial) 5,000 unit SQ Q12 [facility] Last Admin: 09/23/20 08:12 Dose: 5,000 unit Documented by: Heparin Sodium (Porcine) (Heparin Flush 10 Units/Ml 5 Ml Syringe) 2 ml IV Q12 [facility] Last Admin: 09/23/20 11:04 Dose: 2 ml Documented by: Hydrochlorothiazide (Hydrochlorothiazide 12.5 Mg Capsule) 12.5 mg PO DAILY [facility] Last Admin: 09/23/20 08:12 Dose: 12.5 mg Documented by: Hydrocortisone (Hydrocortisone 10 Mg Tablet) 5 mg PO QPMCC [facility] Last Admin: 09/22/20 16:46 Dose: 5 mg Documented by: Hydrocortisone ([facility] 10 Mg [facility]t) [facility] Last Admin: 09/23/20 08:12 Dose: 10 mg Documented by: Potassium Chloride 40 meq/ (Dextrose) 520 mls @ 130 mls/hr IV UD PRN PRN Reason: Potassium < 3 Magnesium Sulfate (Magnesium Sulfate) 2 gm in 50 mls @ 50 mls/hr IV UD PRN PRN Reason: Magnesium </= 1.6 Ertapenem 1 gm/ Sodium (Chloride) 50 mls @ 100 mls/hr IV Q24H [facility]; Protocol Last Admin: 09/23/20 11:06 Dose: 100 mls/hr Documented by: Insulin Human Lispro (Insulin Lispro 1 Unit/0.01 Ml Unit) 0 unit SQ ACHS [facility]; Protocol Last Admin: 09/23/20 07:40 Dose: Not Given Documented by: Lactulose (Lactulose 20 Gm/30 Ml Oral.Dione) 20 gm PO DAILYP PRN PRN Reason: Constipation Metformin HCl (Metformin 500 Mg Tab.Xl.24h) 1,000 mg PO BIDCC [facility] Last Admin: 09/23/20 08:12 Dose: 1,000 mg Documented by: Buprenorphine ( (Subutex) 8 Mg Tab) 2 mg PO TID [facility] Last Admin: 09/23/20 11:03 Dose: 2 mg Documented by: Olmesartan (Olmesartan Medoxomil 20 Mg Tablet) 40 mg PO DAILY [facility] Last Admin: 09/23/20 08:12 Dose: 40 mg Documented by: Ondansetron HCl (Ondansetron 4 Mg/2 Ml Vial) 4 mg IV Q4HP PRN PRN Reason: Nausea And Vomiting Polyethylene Glycol (Polyethylene Glycol 3350 17 Gm Packet) 17 gm PO DAILYP PRN PRN Reason: Constipation Potassium Chloride (Potassium Chloride 20 Meq Tablet) 40 meq PO UD PRN PRN Reason: Potssium is 3-3.5 Potassium Chloride (Potassium Chloride 20 Meq Tablet) 40 meq PO UD PRN PRN Reason: Potassium < 3 Senna (Sennosides 1 Tablet) 2 tab PO DAILYP PRN PRN Reason: Constipation Sodium Chloride (0.9 % Sodium Chloride 10 Ml Syringe) 10 ml IV Q8 [facility] Last Admin: 09/23/20 11:05 Dose: 10 ml Documented by: Sodium Chloride (0.9 % Sodium Chloride 10 Ml Syringe) 10 ml IV UD PRN PRN Reason: FLUSH Last Admin: 09/23/20 11:06 Dose: 10 ml Documented by: Sodium Chloride (0.9 % Sodium Chloride 10 Ml Syringe) 10 ml IV Q12 [facility] Last Admin: 09/23/20 11:07 Dose: Not Given Documented by: A/P Narrative A/P Narrative: Assessment: 85-year-old female with a history of hypertension, hyperlipidemia, 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 *Left foot diabetic wound infection/cellulitis/abscess *Concern for osteomyelitis of right foot w/ visible bone (CRP only 9.2->5.6) *DM w/neuropathy: *Anemia, chronic *HTN/HLD: *Depression/anxiety: *Adrenal insufficiency: *Obesity: P: -Dr. Mahajan from podiatry following post I&D. -Place PICC today. -Continue Ertapenem but could potentially discharge on Ceftriaxone if culture sensitive. -ID follow up after discharge. -wound care -SSI -Continue home BP meds -Continue home psych meds -PT/OT -ppx: heparin full code Time Spent With Patient Time: Total time spent is greater than 50% in coordination of care (as documented) at patient's floor/unit and/or counseling patient: QUALITY VTE Deep Vein Thrombosis/Pulmonary Embolism Present on Admission: No
--- NOTE | 2020-09-23 12:43 | Internal Med Progress Note ---
SUBJECTIVE Subjective Patient information: Note initiated : 09/23/20 at 12:40 pm Service Date, if different from initiated Date: [] Patient: Amber Weiss 55 y/o F admitted on 09/17/20 for Lt Foot Infection. Chief Complaint: [] Interval history: Interval history: History of present illness: Ms. Weiss is a 55 year old F Who presented to the ED last night with increased redness and swelling of her left foot and a white spot. Located on the ball of her foot. She was afebrile had a very mild leukocytosis. Vital signs are stable. Instead of being admitted she chose to follow-up with her cant hooker in the morning she did with Dr. Mahajan. He evaluated her and felt she needed to be admitted for surgical I&D. The white spot opened up and started draining a white thick purulent substance. 09/18 When I asked if she had a good sleep she laughed at me, but seemed in good spirits this morning. No new pains or complaints. Scheduled for I&D today. 09/19-continues on Zosyn, bone visible concerning for osteomyelitis, awaiting surgical cultures. 09/20-stable, awaiting wound culture results. Confirmed with staff that bone cultures were not taken. CRP 5.6, down from 9.2. Plan to consult ID on Tuesday. 09/21-patient feels ok, ID consult tomorrow. 09/22-Dr. Centeno is on vacation so there is no infectious disease sap solution manager consultant available. Plan is to transition to Invanz for once a day dosing via PICC line with early ID follow up. 09/23-on Invanz, multiple organisms growing but cultures not final yet, options for discharge are Invanz or Ceftriaxone daily via PICC line and ID follow up for outpatient management. Constitutional Vitals: Vital Signs Temp Pulse Resp BP Pulse Ox 97.1 F 72 14 133/57 92 09/23/20 08:00 09/23/20 08:00 09/23/20 08:00 09/23/20 08:00 09/23/20 08:00 Period Temp Pulse Resp BP Sys/Schultz Pulse Ox Last 24 Hr 97 F-98.4 F 72-84 12-16 106-133/51-74 92-96 Intake and Output 09/22/20 09/23/20 09/23/20 21:59 05:59 13:59 Intake Total 1100 300 50 Output Total 1000 900 200 Balance 100 -600 -150 Weight 179.214 kg Intake & Output: Intake & Output 09/22/20 09/23/20 09/23/20 21:59 05:59 13:59 Intake Total 1100 300 50 Output Total 1000 900 200 Balance 100 -600 -150 Weight 179.214 kg Intake: IV 50 50 INVanz 1 GM In Sodium Chloride 50 50 0.9% 50 ml @ 100 mls/hr IV Q24H [facility] Rx#:[id number] Oral 1050 300 Output: Void Amount 1000 900 200 Other: Meal Dinner Percent of Meal Consumed 100% Feeding Ability Independent Urine Appearance Clear Clear Urine Color Dark Yellow Bright Yellow Urine Odor Normal # Voids 1 Exam: General: Alert, Awake, No acute Distress, obese Eyes/N/T: EOMI, Head/Neck: neck supple, CV: RRR, No murmurs, Pulm: Clear b/l, no wheezing/rhonchi/rales Abd: soft, nontender, +BS x4 Ext: no clubbing/cyanosis, b/l LE edma R>L, left foot wound s/p I&D, covered with clean bandage. Neuro: Alert, no focal deficits, moves all extremities, Skin: warm/dry OBJ DATA Labs CBC & Chem 7: 09/23/20 06:20 09/23/20 06:20 Labs: Abnormal Lab Results 09/23/20 09/23/20 06:20 06:20 Hgb 11.0 L MCHC 30.5 L RDW 16.6 H Plt Count 472 H Carbon Dioxide 31 H Glucose 112 H Meds: Medications Acetaminophen (Acetaminophen 325 Mg Tablet) 650 mg PO Q6HP PRN PRN Reason: PAIN/FEVER > 101 Hydrocodone Bitart/Acetaminophen (Hydrocodone/Apap 10/325mg Tablet) 1 tab PO QIDP PRN; Protocol PRN Reason: Pain Last Admin: 09/23/20 04:11 Dose: 1 tab Documented by: Albuterol/Ipratropium (Ipratropium/Albuterol 3 Ml Ampul.Neb) 3 ml NEB Q4HP PRN PRN Reason: Shortness Of Breath Atorvastatin Calcium (Atorvastatin 40 Mg Tablet) 40 mg PO QDAY [facility] Last Admin: 09/23/20 08:12 Dose: 40 mg Documented by: Baclofen (Baclofen 10 Mg Tablet) 10 mg PO TID [facility] Last Admin: 09/23/20 08:13 Dose: 10 mg Documented by: Dextrose (Dextrose 50% 50 Ml Vial) 0 ml IV UD PRN PRN Reason: Hypoglycemia Diagnostic Test (Pha) (Accu-Chek 1 Each Strip) 1 each FS ACHS [facility] Last Admin: 09/23/20 11:39 Dose: 1 each Documented by: Docusate Sodium (Docusate Sodium 100 Mg Capsule) 100 mg PO BID [facility] Last Admin: 09/23/20 08:13 Dose: Not Given Documented by: Duloxetine HCl (Duloxetine 30 Mg Capsule) 60 mg PO BID [facility] Last Admin: 09/23/20 08:13 Dose: 60 mg Documented by: Gabapentin (Gabapentin 400 Mg Capsule) 800 mg PO QID [facility] Last Admin: 09/23/20 08:13 Dose: 800 mg Documented by: Glucose (Dextrose 31 Gm Oral.Susp) 15 gm PO PRN PRN PRN Reason: Hypoglycemia Heparin Sodium (Porcine) (Heparin 5,000 Unit/Ml Vial) 5,000 unit SQ Q12 [facility] Last Admin: 09/23/20 08:12 Dose: 5,000 unit Documented by: Heparin Sodium (Porcine) (Heparin Flush 10 Units/Ml 5 Ml Syringe) 2 ml IV Q12 [facility] Last Admin: 09/23/20 11:04 Dose: 2 ml Documented by: Hydrochlorothiazide (Hydrochlorothiazide 12.5 Mg Capsule) 12.5 mg PO DAILY [facility] Last Admin: 09/23/20 08:12 Dose: 12.5 mg Documented by: Hydrocortisone (Hydrocortisone 10 Mg Tablet) 5 mg PO QPMCC [facility] Last Admin: 09/22/20 16:46 Dose: 5 mg Documented by: Hydrocortisone (Hydrocortisone 10 Mg Tablet) 10 mg PO QAC [facility] Last Admin: 09/23/20 08:12 Dose: 10 mg Documented by: Potassium Chloride 40 meq/ (Dextrose) 520 mls @ 130 mls/hr IV UD PRN PRN Reason: Potassium < 3 Magnesium Sulfate (Magnesium Sulfate) 2 gm in 50 mls @ 50 mls/hr IV UD PRN PRN Reason: Magnesium </= 1.6 Ertapenem 1 gm/ Sodium (Chloride) 50 mls @ 100 mls/hr IV Q24H [facility]; Protocol Last Infusion: 09/23/20 12:35 Dose: Infused Documented by: Insulin Human Lispro (Insulin Lispro 1 Unit/0.01 Ml Unit) 0 unit SQ ACHS [facility]; Protocol Last Admin: 09/23/20 12:33 Dose: Not Given Documented by: Lactulose (Lactulose 20 Gm/30 Ml Oral.Dione) 20 gm PO DAILYP PRN PRN Reason: Constipation Metformin HCl (Metformin 500 Mg Tab.Xl.24h) 1,000 mg PO BIDCC [facility] Last Admin: 09/23/20 08:12 Dose: 1,000 mg Documented by: Buprenorphine ( (Subutex) 8 Mg Tab) 2 mg PO TID [facility] Last Admin: 09/23/20 11:03 Dose: 2 mg Documented by: Olmesartan (Olmesartan Medoxomil 20 Mg Tablet) 40 mg PO DAILY [facility] Last Admin: 09/23/20 08:12 Dose: 40 mg Documented by: Ondansetron HCl (Ondansetron 4 Mg/2 Ml Vial) 4 mg IV Q4HP PRN PRN Reason: Nausea And Vomiting Polyethylene Glycol (Polyethylene Glycol 3350 17 Gm Packet) 17 gm PO DAILYP PRN PRN Reason: Constipation Potassium Chloride (Potassium Chloride 20 Meq Tablet) 40 meq PO UD PRN PRN Reason: Potssium is 3-3.5 Potassium Chloride (Potassium Chloride 20 Meq Tablet) 40 meq PO UD PRN PRN Reason: Potassium < 3 Senna (Sennosides 1 Tablet) 2 tab PO DAILYP PRN PRN Reason: Constipation Sodium Chloride (0.9 % Sodium Chloride 10 Ml Syringe) 10 ml IV Q8 [facility] Last Admin: 09/23/20 11:05 Dose: 10 ml Documented by: Sodium Chloride (0.9 % Sodium Chloride 10 Ml Syringe) 10 ml IV UD PRN PRN Reason: FLUSH Last Admin: 09/23/20 11:06 Dose: 10 ml Documented by: Sodium Chloride (0.9 % Sodium Chloride 10 Ml Syringe) 10 ml IV Q12 [facility] Last Admin: 09/23/20 11:07 Dose: Not Given Documented by: A/P Narrative A/P Narrative: A: *Left foot diabetic wound infection/cellulitis/abscess/osteo: -*Concern for osteomyelitis of right foot w/ visible bone (CRP only 9.2->5.6) *DM w/neuropathy: *Anemia, chronic *HTN/HLD: *Depression/anxiety: *Adrenal insufficiency: *Obesity: * P: -Dr. Mahajan from podiatry following -PICC placement -Ertapenem to likely Ceftriaxone if culture sensitive. -wound care -SSI -Continue home BP meds -Continue home psych meds -PT/OT -ppx: heparin full code Time Spent With Patient Time: Total time spent is greater than 50% in coordination of care (as documented) at patient's floor/unit and/or counseling patient: QUALITY VTE Deep Vein Thrombosis/Pulmonary Embolism Present on Admission: No
--- NOTE | 2020-09-23 14:12 | Discharge Summary ---
Discharge Provider Provider Patient information: Note initiated : 09/23/20 at 2:08 pm Service Date, if different from initiated Date: [] Patient: Amber Weiss 55 y/o F admitted on 09/17/20 for Lt Foot Infection. Chief Complaint: [] Date of admission: 09/17/20 14:50 Discharge date: 09/23/20 Primary care physician: Luis Fernando Gonsalez MD Consults: 09/17/20 Consult to Physician [CONS] Stat Comment: Consulting Provider: Alex Mahajan Reason For Exam: Physician to Consult Consult to Physician [CONS] Stat Comment: Consulting Provider: Buck Stanley Reason For Exam: Physician to Consult 09/17/20 15:10 Consult to Physician [CONS] Routine Comment: Consulting Provider: Alex Mahajan Reason For Exam: Physician to Consult Discharge Meds Discharge Medications Home Medications gabapentin 800 mg tablet 800 mg PO QID tab 08/07/15 [History Confirmed 09/17/20 Last Taken 09/17/20 06:00] hydrocodone 10 mg-acetaminophen 325 mg tablet 1 tab PO QID 08/07/15 [History Confirmed 09/17/20 Last Taken 09/16/20] duloxetine 60 mg capsule,delayed release 60 mg PO BID cap 10/02/15 [History Confirmed 09/17/20 Last Taken 09/17/20 06:00] hydrocortisone 5 mg tablet 10 mg PO .COMPLEX 01/08/16 [History Confirmed 09/17/20 Last Taken 09/17/20 06:00] cholecalciferol (vitamin D3) 125 mcg (5,000 unit) capsule 5,000 unit PO QDAY cap 07/08/16 [History Confirmed 09/17/20 Last Taken 09/16/20] ibuprofen 200 mg capsule 600 mg PO QID cap 01/18/17 [History Confirmed 09/17/20 Last Taken 09/17/20 06:00] metformin 1,000 mg 24 hr tablet,extended release 1,000 mg PO BID #120 tab 11/08/17 [Rx Confirmed 09/17/20 Last Taken 09/16/20 18:00] atorvastatin 40 mg tablet 40 mg PO QDAY 03/22/19 [History Confirmed 09/17/20 Last Taken 09/16/20] fluconazole 100 mg tablet 100 mg PO QDAY 03/22/19 [History Confirmed 09/17/20 Last Taken 09/16/20 15:00] glipizide 2.5 mg tablet, extended release 24 hr 20 mg PO BID tab 03/22/19 [History Confirmed 09/17/20 Last Taken 09/17/20 06:00] baclofen 10 mg PO TID 09/02/20 [History Confirmed 09/17/20 Last Taken 09/16/20] buprenorphine HCl 2 mg SUBLINGUAL TID 09/02/20 [History Confirmed 09/17/20 Last Taken 09/17/20] pioglitazone 30 mg PO QDAY 09/17/20 [History Confirmed 09/17/20 Last Taken 09/16/20 17:00] valsartan-hydrochlorothiazide 1 tab PO QAM 09/17/20 [History Confirmed 09/17/20 Last Taken 09/16/20 12:00] ceftriaxone 2 g IV QDAY #1 ea 09/23/20 [Rx Last Taken Unknown] COURSE Hospital Course Hospital course: Interval history: History of present illness: Ms. Weiss is a 55 year old F Who presented to the ED last night with increased redness and swelling of her left foot and a white spot. Located on the ball of her foot. She was afebrile had a very mild leukocytosis. Vital signs are stable. Instead of being admitted she chose to follow-up with her burlap spreader in the morning she did with Dr. Mahajan. He evaluated her and felt she needed to be admitted for surgical I&D. The white spot opened up and started draining a white thick purulent substance. 09/18 When I asked if she had a good sleep she laughed at me, but seemed in good spirits this morning. No new pains or complaints. Scheduled for I&D today. 09/19-continues on Zosyn, bone visible concerning for osteomyelitis, awaiting surgical cultures. 09/20-stable, awaiting wound culture results. Confirmed with staff that bone cultures were not taken. CRP 5.6, down from 9.2. Plan to consult ID on Tuesday. 09/21-patient feels ok, ID consult tomorrow. 09/22-Dr. Centeno is on vacation so there is no infectious disease diet consultant available. Plan is to transition to Invanz for once a day dosing via PICC line with early ID follow up. 09/23-on Invanz, multiple organisms growing but cultures not final yet, options for discharge are Invanz or Ceftriaxone daily via PICC line and ID follow up for outpatient management. A: *Left foot diabetic wound infection/cellulitis/abscess/osteo: -*Concern for osteomyelitis of right foot w/ visible bone (CRP only 9.2->5.6) *DM w/neuropathy: *Anemia, chronic *HTN/HLD: *Depression/anxiety: *Adrenal insufficiency: *Obesity: * Discharge diagnosis: Diabetic wound infection cellulitis abscess and osteo- Secondary discharge diagnosis: Diabetes with neuropathy chronic anemia depression anxiety adrenal insufficiency obesity hypertension Time Spent with Patient Time attestation: Total time spent providing and/or coordinating discharge services: Time spent: Greater than 30 minutes EXAM Constitutional Vitals: Temp Pulse Resp BP Pulse Ox 97.1 F 72 14 133/57 92 09/23/20 08:00 09/23/20 08:00 09/23/20 08:00 09/23/20 08:00 09/23/20 08:00 Discharge Data Data Completed and Pending Labs on day of discharge: Labs from last 24 hours 09/23/20 09/23/20 06:20 06:20 WBC 10.7 RBC 4.04 Hgb 11.0 L Hct 36.1 MCV 89.4 MCH 27.2 MCHC 30.5 L RDW 16.6 H Plt Count 472 H MPV 8.9 Neut % (Auto) 64.0 Lymph % (Auto) 26.7 [place] % (Auto) 6.5 Eos % (Auto) 2.2 Baso % (Auto) 0.6 Lymph # (Auto) 2.85 [place] # (Auto) 0.69 Eos # (Auto) 0.23 Baso # (Auto) 0.06 Absolute Neutrophils 6.83 Sodium 136 Potassium 4.0 Chloride 96 Carbon Dioxide 31 H Anion Gap 9.0 BUN 14 Creatinine 0.6 GFR Calculation 101 Glucose 112 H Calcium 9.9 Phosphorus 3.5 Albumin 4.0 Discharge Plan Patient/Caregiver Discharge Instructions Activity: increase activity as tolerated Diet: Consistent Carbohydrate Instructions: Foot Care for People with Diabetes (DC), Diabetic Foot Ulcers (DC) Activity Restrictions/Additional Instructions: weekly cbc/cmp while on IV abx - send to Dr. Saleh PICC line care while on IV abx then d/c Rocephin to finish on 10/30/2020. Prescriptions: New ceftriaxone 2 gram recon soln 2 g IV QDAY Qty: 1 RF: 0 Continued hydrocortisone 5 mg tablet 10 mg PO .COMPLEX RF: 0 hydrocodone-acetaminophen 10-325 mg tablet 1 tab PO QID RF: 0 gabapentin 800 mg tablet 800 mg PO QID RF: 0 duloxetine [Cymbalta] 60 mg capsule,delayed release(DR/EC) 60 mg PO BID RF: 0 metformin 1,000 mg tablet,ER lorri.retention 24 hr 1,000 mg PO BID Qty: 120 RF: 3 cholecalciferol (vitamin D3) 5,000 unit capsule 5,000 unit PO QDAY RF: 0 ibuprofen 200 mg capsule 600 mg PO QID RF: 0 fluconazole [Diflucan] 100 mg tablet 100 mg PO QDAY RF: 0 glipizide 2.5 mg tablet extended release 24hr 20 mg PO BID RF: 0 atorvastatin 40 mg tablet 40 mg PO QDAY RF: 0 buprenorphine HCl 2 mg tablet, sublingual 2 mg SUBLINGUAL TID RF: 0 baclofen 10 mg tablet 10 mg PO TID RF: 0 pioglitazone 30 mg Tablet 30 mg PO QDAY RF: 0 valsartan-hydrochlorothiazide 320-12.5 mg tablet 1 tab PO QAM RF: 0 Follow Up Plan Follow up with: Alex Mahajan DPM [Physician] - Jason Centeno MD [Physician] - Luis Fernando Gonsalez MD [Primary Care Provider] - Patient Disposition: Home, Self-Care Prognosis: Fair Overall status at discharge: patient is progressing back to baseline Discharge Orders: Discharge Order (Routine); Ordered 09/23/20 [facility]/Pulmonary Embolism Present on Admission: No
== END 2020-09-23 17:05 | disposition home or self-care (01) | DRG 638 ==
LOC: ED 11:43 → MEDSUR 14:50
PROVIDERS: ADMIT Internal Medicine; ATTEND Internal Medicine

== ENCOUNTER 2021-03-16 10:41 | Inpatient (IN) ==
[2021-03-16] MEDS ORDERED: IOPAMIDOL 100 ML BOTTLE IV ONE (10:42)
[2021-03-16] MEDS ORDERED: 0.9 % SODIUM CHLORIDE 1,000 ML IV ONE (11:25)
[2021-03-16] MEDS ORDERED: HYDROmorphone 0.5 MG/0.5 ML SYRINGE IV ONE (11:30)
[2021-03-16] MEDS ORDERED: VANCOMYCIN 2,000 MG in 0.9 % SODIUM CHLORIDE 500 ML IV ONE (11:30)
[2021-03-16] MEDS ORDERED: PIPERACILLIN SODIUM/TAZOBACTAM 3.375 GM in DEXTROSE 5% IN WATER 50 ML IV SCH (11:30)
[2021-03-16] MEDS ORDERED: ONDANSETRON 4 MG/2 ML VIAL IV ONE (11:30)
--- NOTE | 2021-03-16 11:39 | Emergency Department Note ---
Extremity Problem HPI General Chief complaint: Extremity Problem,Nontraumatic Stated complaint: Foot Infection Time Seen by Provider: 03/16/21 11:24 Source: patient, RN notes reviewed, old records reviewed and other (Dr. Km Mahajan of podiatry called prior to patient's arrival) Mode of arrival: ambulatory Limitations: no limitations History of Present Illness HPI Narrative: Narrative: 56-year-old female complains of left foot pain, left great toe pain,. Complains of erythema swelling tenderness to palpation and pustular discharge. Patient has had a diabetic ulcer and has been treated as an outpatient at wound clinic by Dr. Mahajan and with p.o. antibiotics. The wound is increasing in size with increasing discharge and increasing pain. MD Complaint: extremity pain, extremity swelling, joint swelling and joint paint Onset (ago): week(s) Consistency: constant Location: left, lower extremity and toe Quality: aching Radiation: proximal Improves with: nothing Worsens with: range of motion, weight bearing, walking and palpation Associated symptoms: Reports fever, myalgias, arthralgias and rash; Denies chest pain or shortness of breath Context: other (Chronic diabetic foot ulcer) Related Data Home Medications Medication Instructions Recorded Confirmed gabapentin 800 mg tablet 800 mg PO Q4 tab 08/07/15 03/16/21 hydrocodone 10 mg-acetaminophen 1 tab PO PRN PRN 08/07/15 03/16/21 325 mg tablet duloxetine 60 mg capsule,delayed 60 mg PO BID cap 10/02/15 03/16/21 release (Cymbalta) hydrocortisone 5 mg tablet 10 mg PO .COMPLEX 01/08/16 03/16/21 cholecalciferol (vitamin D3) 125 5,000 unit PO QDAY cap 07/08/16 03/16/21 mcg (5,000 unit) capsule ibuprofen 200 mg capsule 600 mg PO QID cap 01/18/17 03/16/21 atorvastatin 40 mg tablet 40 mg PO QDAY 03/22/19 03/16/21 glipizide 2.5 mg tablet, extended 10 mg PO BID tab 03/22/19 03/16/21 release 24 hr baclofen 10 mg tablet 10 mg PO TID 09/02/20 03/16/21 buprenorphine HCl 2 mg sublingual 2 mg SUBLINGUAL TID 09/02/20 03/09/21 tablet pioglitazone 30 mg tablet 30 mg PO QDAY 09/17/20 03/16/21 valsartan 320 1 tab PO 1200 09/17/20 03/16/21 mg-hydrochlorothiazide 12.5 mg tablet cyanocobalamin (vitamin B-12) 2,000 mcg SUBLINGUAL QDAY 03/09/21 03/16/21 1,000 mcg sublingual tablet magnesium oxide 400 mg PO QDAY 03/09/21 03/16/21 pyridoxine (vitamin B6) 100 mg 100 mg PO QDAY 03/09/21 03/16/21 tablet (Vitamin B-6) rizatriptan 10 mg tablet (Maxalt) 10 mg PO PRN PRN 03/09/21 03/16/21 topiramate 25 mg tablet 25 mg PO QDAY 03/09/21 03/16/21 vitamin E 400 unit capsule 400 unit PO QDAY 03/09/21 03/16/21 Previous Rx's Medication Instructions Recorded metformin 1,000 mg 24 hr 1,000 mg PO BID #120 tab 11/08/17 tablet,extended release doxycycline monohydrate 100 mg 100 mg PO BID #14 tab 03/12/21 tablet Allergies Allergy/AdvReac Type Severity Reaction Status Date / Time Sulfa (Sulfonamide Allergy Mild Rash Verified 03/16/21 10:55 Antibiotics) Review of Systems ROS ROS Narrative: Narrative: All systems ED: reviewed and negative except as stated. PFSH Narrative Patient History Narrative: Narrative: Medical/Surgical/Family History All Active Problems (Updated 03/16/21 @ 11:46 by Jose Myles MD) Piriformis syndrome (Acute) Sciatica of right side (Acute) Diabetic infection of left foot (Acute) Diabetic foot ulcer associated with type 2 diabetes mellitus (Acute) Cellulitis and abscess of foot (Acute) Cellulitis of foot, left (Acute) Diabetic foot ulcer (Acute) Type 2 diabetes mellitus with diabetic mononeuropathy (Acute) Chronic intractable pain (Acute) Bilateral sacroiliitis (Acute) Chronic SI joint pain (Acute) Cellulitis of lower extremity (Chronic) Sepsis (Chronic) Somatic dysfunction of rib (Chronic) Lumbago with sciatica, right side (Chronic) Thyroid nodule (Chronic) Essential hypertension (Chronic) Hyperlipidemia (Chronic) Hypovitaminosis D (Chronic) Renal mass (Chronic) UTI (urinary tract infection) (Chronic) Urinary tract infection (Chronic) Meningitis (Chronic) Acute bacterial meningitis (Chronic) Dermatitis of vulva (Chronic) Dermatitis associated with moisture (Chronic) 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) Candidiasis of genitalia in female (Chronic) Low back pain (Chronic) Secondary adrenal insufficiency (Chronic) Cellulitis (Chronic) Venous stasis dermatitis of right lower extremity (Chronic) Cellulitis (Chronic) Multiple thyroid nodules (Chronic) Sciatica (Chronic) Herniated disc (Chronic) DDD (degenerative disc disease) (Chronic) Bone spur of foot (Chronic) Plantar fasciitis, bilateral (Chronic) Bursitis of hip (Chronic) Neuropathy (Chronic) Fibromyalgia (Chronic) Osteoporosis (Chronic) Migraine (Chronic) Liver disease (Chronic) Focal nodular hyperplasia of liver (Chronic) Joint pain (Chronic) Insomnia (Chronic) High blood pressure (Chronic) Gallbladder problem (Chronic) Diabetes mellitus, type II (Chronic) Depression (Chronic) Daytime sleepiness (Chronic) Muscle pain (Chronic) Arthritis (Chronic) Anxiety (Chronic) Medical History Acute bacterial meningitis Anxiety Arthritis Bilateral sacroiliitis Bone spur of foot right Bursitis of hip bilateral Cellulitis Cellulitis Chronic intractable pain Chronic SI joint pain Daytime sleepiness DDD (degenerative disc disease) Depression Dermatitis associated with moisture Dermatitis of vulva Diabetes mellitus, type II Fibromyalgia Focal nodular hyperplasia of liver Gallbladder problem Herniated disc High blood pressure Insomnia Joint pain Liver disease Meningitis Migraine Muscle pain chronic 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 Protection dressings and off loading. Neuropathy Osteoporosis Plantar fasciitis, bilateral Sciatica Urinary tract infection UTI (urinary tract infection) Venous stasis dermatitis of right lower extremity Surgical History H/O adenoidectomy H/O hand surgery fingers rebroke and reset H/O shoulder surgery two scopes H/O: hysterectomy History of placement of ear tubes History of surgery of liver tumor on liver, removed half of liver Hx of cholecystectomy Previous section x2 S/P knee replacement bilateral knees replaced S/P right knee arthroscopy Family History Mother Arthritis Malignant neoplasm Diabetes mellitus Hypertension Migraine Cerebrovascular accident (CVA) Father Arthritis Dementia Hypertension Aunt Malignant neoplasm Cousin Myocardial Infarction Social History Smoking Status: Never smoker Alcohol Intake Frequency: does not drink Substance Use: does not use Exam Narrative Narrative: Narrative: General Limitations: no limitations General appearance: Present alert, in no apparent distress and obese Head Head: Present atraumatic and normocephalic Eye Eye: Present normal appearance, PERRL and EOMI ENT ENT: Present normal exam and mucous membranes moist Neck Neck: Present normal inspection and full ROM Chest Chest: Present normal inspection; Absent tenderness Respiratory Respiratory: Present normal lung sounds bilaterally; Absent respiratory distress Cardiovascular Cardiovascular: Present regular rate and normal rhythm; Absent systolic murmur Adbominal Abdominal: Present soft; Absent distention, tenderness, guarding or rebound Extremities Extremities: Present tenderness and other (Left foot and great toe with marked swelling erythema pustular discharge and tenderness to palpation); Absent normal inspection, full ROM, normal capillary refill, pedal edema or pretibial edema Back Back: Present normal inspection; Absent CVA tenderness (R) or CVA tenderness (L) Neurological Neurological: Present alert and oriented X3 Psychiatric Psychiatric: Present normal affect and normal mood Skin Skin: Present warm (WNL); Absent rash Course Vital Signs Vital signs: Vital Signs Temperature 97.5 F 03/16/21 10:52 Pulse Rate 81 03/16/21 10:52 Respiratory Rate 18 03/16/21 10:52 Blood Pressure 137/66 03/16/21 10:52 Pulse Oximetry (%) 97 03/16/21 10:52 Temperature 97.5 F 03/16/21 10:52 Pulse Rate 64 03/16/21 12:31 Respiratory Rate 18 03/16/21 10:52 Blood Pressure 130/60 03/16/21 12:31 Pulse Oximetry (%) 100 03/16/21 12:31 [facility] MDM Narrative Medical decision making narrative: Narrative: Diabetic with Alexandr's disease arrives with worsening foot ulcer with cellulitis and abscess. Evaluated by Dr. Mahajan of podiatry. Has failed outpatient p.o. antibiotics and wound care. Patient will need to be admitted fo r IV antibiotics glucose monitoring and surgery for the foot ulcer abscess. Differential Diagnosis Differential Diagnosis: Cellulitis, abscess, osteomyelitis. Diabetes Medical Records Medical records reviewed: Yes I reviewed the patient's medical records. Lab Data Lab results reviewed: Yes I reviewed the patient's lab results. Result diagrams: 03/16/21 12:10 03/16/21 12:10 Labs: Lab Results 03/16/21 03/16/21 03/16/21 Range/Units 12:10 12:10 12:10 WBC 9.4 (4.5-11.0) K/mcL RBC 4.03 (3.59-5.38) M/mcL Hgb 10.5 L (11.2-15.7) g/dL Hct 34.4 (34.1-44.9) % MCV 85.4 (80.0-100.0) fL MCH 26.1 (26.0-34.0) pg MCHC 30.5 L (31.0-36.0) g/dL RDW 16.4 H (11.5-14.5) % Plt Count 361 (140-440) K/mcL MPV 9.8 (7.4-10.4) fL Neut % (Auto) 68.7 (38.0-78.0) % Lymph % (Auto) 21.7 (15.5-49.0) % [place] % (Auto) 6.1 (1.0-12.0) % Eos % (Auto) 3.0 (0.0-7.0) % Baso % (Auto) 0.5 (0.0-2.0) % Lymph # (Auto) 2.04 (1.50-4.80) K/mcL [place] # (Auto) 0.57 (0.10-0.90) K/mcL Eos # (Auto) 0.28 (0.00-0.70) K/mcL Baso # (Auto) 0.05 (0.00-0.30) K/mcL Absolute Neutrophils 6.48 (1.80-8.00) K/mcL VBG Lactic Acid 1.2 (0.5-2.0) mmol/L Sodium 140 (133-145) mmol/L Potassium 3.7 (3.3-5.1) mmol/L Chloride 101 (96-108) mmol/L Carbon Dioxide 26 (22-30) mmol/L Anion Gap 13.0 (8.0-16.0) BUN 22 H (6-20) mg/dL Creatinine 0.8 (0.6-1.1) mg/dL POC Creatinine 0.9 (0.6-1.2) mg/dL GFR Calculation 81 Glucose 76 (70-105) mg/dL Calcium 9.4 (8.6-10.4) mg/dL Total Bilirubin 0.4 (0.1-1.0) mg/dL AST 23 (<32) U/L ALT 19 (<40) U/L Alkaline Phosphatase 113 (39-117) U/L C-Reactive Protein 0.80 (0.03-0.80) mg/dL Total Protein 7.1 (5.9-8.4) gm/dL Albumin 4.0 (3.2-5.2) gm/dL Globulin 3.1 (2.2-3.7) gm/dL Albumin/Globulin Ratio 1.3 (1.0-2.3) ED POC Tests ED POC Tests: RUTHY - SARS Antigen Negative Radiology Data Radiology results reviewed: Yes I reviewed the patient's radiology results. Radiology results narrative: Chest x-ray with borderline cardiomegaly EKG Data EKG #1: EKG attestation: Yes I reviewed and interpreted this EKG. EKG shows normal: sinus rhythm Rate: normal (69) Rhythm: NSR [place]/QRS: normal Heart block present: None ST segment elevation in: None ST segment depression in: None Q waves: None T wave inversions noted in: None Hyperacute T waves: None QTc: normal QRS morphology: Present normal Interpretation: normal EKG Pulse Oximetry Data Pulse Ox %: 97 Interpretation: 97% on room air is within normal limit Discharge Plan Patient/Caregiver Discharge Instructions Pt seen by SKIN CARE TECHNICIAN/PA only: No Clinical Impression: Cellulitis and abscess of foot Diabetic foot ulcer associated with type 2 diabetes mellitus Qualifiers: Diabetic foot ulcer location: toe Laterality: left Non-pressure ulcer stage: with other severity Qualified Code(s): E11.621 - Type 2 diabetes mellitus with foot ulcer Patient Disposition: Xfer As Inpt ([facility]) Follow up with: Deborah Oneal FNP [Primary Care Provider] - Prescriptions: No Action hydrocortisone 5 mg tablet 10 mg PO .COMPLEX 0RF Label Comments: 10mg QAM, 5mg QPM Rx Instructions: 10mg QAM, 5mg QPM hydrocodone-acetaminophen 10-325 mg tablet 1 tab PO PRN PRN (Reason: Pain) 0RF Label Comments: Prescribed by Dr. Thompson in [facility] gabapentin 800 mg tablet 800 mg PO Q4 0RF duloxetine [Cymbalta] 60 mg capsule,delayed release(DR/EC) 60 mg PO BID 0RF metformin 1,000 mg tablet,ER lorri.retention 24 hr 1,000 mg PO BID Qty: 120 3RF Rx Instructions: administer with meal cholecalciferol (vitamin D3) 5,000 unit capsule 5,000 unit PO QDAY 0RF ibuprofen 200 mg capsule 600 mg PO QID 0RF glipizide 2.5 mg tablet extended release 24hr 10 mg PO BID 0RF atorvastatin 40 mg tablet 40 mg PO QDAY 0RF buprenorphine HCl 2 mg tablet, sublingual 2 mg SUBLINGUAL TID 0RF baclofen 10 mg tablet 10 mg PO TID 0RF pioglitazone 30 mg Tablet 30 mg PO QDAY 0RF valsartan-hydrochlorothiazide 320-12.5 mg tablet 1 tab PO 1200 0RF Rx Instructions: 320/12.5mg rizatriptan [Maxalt] 10 mg Tablet 10 mg PO PRN PRN (Reason: migraines) 0RF topiramate 25 mg Tablet 25 mg PO QDAY 0RF cyanocobalamin (vitamin B-12) [Vitamin B-12] 1,000 mcg Tablet, Sublingual 2,000 mcg SUBLINGUAL QDAY 0RF pyridoxine (vitamin B6) [Vitamin B-6] 100 mg Tablet 100 mg PO QDAY 0RF vitamin E 400 unit Capsule 400 unit PO QDAY 0RF magnesium oxide 400 mg magnesium Tablet 400 mg PO QDAY 0RF doxycycline monohydrate 100 mg tablet 100 mg PO BID Qty: 14 0RF
[2021-03-16] MEDS ORDERED: DEXAMETHASONE 10 MG/ML VIAL IV ONE (11:47)
--- NOTE | 2021-03-16 12:25 | XRay Report ---
CLINICAL INFORMATION: Pre op COMPARISON: 09/23/2020 FINDINGS: Mild cardiomegaly is unchanged. Mediastinum and pulmonary vessels are normal. The lungs are clear. No effusion IMPRESSION: Borderline cardiomegaly stable. No acute disease Interpreted and Authenticated by: Farshad Castro 03/16/21
[2021-03-16 12:30] LABS: POC Creatinine 0.9 mg/dL (0.6-1.2)
[2021-03-16 13:14] LABS: Basophils # (Auto) 0.05 K/mcL (0.00-0.30); Basophils % (Auto) 0.5 % (0.0-2.0); Eosinophils # (Auto) 0.28 K/mcL (0.00-0.70); Hematocrit 34.4 % (34.1-44.9); Hemoglobin 10.5 g/dL (11.2-15.7); Lymphocytes # (Auto) 2.04 K/mcL (1.50-4.80); Lymphocytes % (Auto) 21.7 % (15.5-49.0); Mean Cell Volume 85.4 fL (80.0-100.0); Mean Corpuscular HGB Conc 30.5 g/dL (31.0-36.0); Mean Platelet Volume 9.8 fL (7.4-10.4); Monocytes # (Auto) 0.57 K/mcL (0.10-0.90); Monocytes % (Auto) 6.1 % (1.0-12.0); Neutrophils % (Auto) 68.7 % (38.0-78.0); Platelet Count 361 K/mcL (140-440); RBC 4.03 M/mcL (3.59-5.38); Red Cell Distribution Width 16.4 % (11.5-14.5); WBC 9.4 K/mcL (4.5-11.0)
[2021-03-16 13:33] LABS: ALT/SGPT 19 U/L (<40); AST/SGOT 23 U/L (<32); Albumin/Globulin Ratio 1.3 (1.0-2.3); Alkaline Phosphatase 113 U/L (39-117); Bilirubin,Total 0.4 mg/dL (0.1-1.0); Blood Urea Nitrogen 22 mg/dL (6-20); Calcium 9.4 mg/dL (8.6-10.4); Carbon Dioxide 26 mmol/L (22-30); Chloride 101 mmol/L (96-108); Globulin 3.1 gm/dL (2.2-3.7); Glomerular Filtration Rate 81; Glucose 76 mg/dL (70-105)
--- NOTE | 2021-03-16 14:07 | Cat Scan Report ---
CLINICAL INFORMATION: Cellulitis with abscess COMPARISON: Plain films 03/12/2021 TECHNIQUE: 0.625 helical slices were obtained from the distal one half of tibia fibula to the foot and ankle. Following reconstruction, 2.5 m sagittal, axial coronal reformatted images were processed and reviewed at bone and soft tissue windows FINDINGS: A 15 mm fluid collection in the medial subcutaneous soft tissues, overlying the first metatarsal head, may represent a small abscess. Moderate surrounding phlegmon appreciated. Diffuse cellulitis is seen throughout the subcutaneous fat in the dorsal foot and circumferentially in the ankle and distal calf region. The muscle and fascial planes are unremarkable. No evidence of osteomyelitis or other focal osseous abnormality. Hallux valgus metatarsus abductus noted. The joint spaces are normal with alignment without arthritic change and IMPRESSION: 15 mm fluid collection in the subcutaneous soft tissues over the medial first metatarsal head with surrounding phlegmon. It is suspicious for a small subdermal abscess. Moderate cellulitis extends throughout the dorsal subcutaneous fat of the foot and circumferentially in the ankle and distal calf. Few phleboliths noted within the superficial veins anteriorly. No evidence of osteomyelitis. Interpreted and Authenticated by: Farshad Castro 03/16/21
--- NOTE | 2021-03-16 14:09 | Internal Med History&Physical ---
HPI History of Present Illness Patient information: Note initiated : 03/16/21 at 2:07 pm Service Date, if different from initiated Date: [] Patient: Amber Weiss a 56 y/o F admitted on for Foot Infection. Chief Complaint: [] History of present illness: Ms. Weiss is a 56 year old F Presents from Dr. Mahajan's office for left foot toe cellulitis with pustular drainage redness swelling tenderness. Patient failed outpatient antibiotics and also will likely need surgical I&D. Was on doxycycline outpatient. Review of Systems: Pertinent positives as above. Denies headache/fever/chills/nausea/vomiting/chest or abdominal pain/ cough/dyspnea/diarrhea. remaining 10 point review of system reviewed negative PFSH PFSH All Active Problems (Updated 03/16/21 @ 11:46 by Jose Myles MD) Piriformis syndrome (Acute) Sciatica of right side (Acute) Diabetic infection of left foot (Acute) Diabetic foot ulcer associated with type 2 diabetes mellitus (Acute) Cellulitis and abscess of foot (Acute) Cellulitis of foot, left (Acute) Diabetic foot ulcer (Acute) Type 2 diabetes mellitus with diabetic mononeuropathy (Acute) Chronic intractable pain (Acute) Bilateral sacroiliitis (Acute) Chronic SI joint pain (Acute) Cellulitis of lower extremity (Chronic) Sepsis (Chronic) Somatic dysfunction of rib (Chronic) Lumbago with sciatica, right side (Chronic) Thyroid nodule (Chronic) Essential hypertension (Chronic) Hyperlipidemia (Chronic) Hypovitaminosis D (Chronic) Renal mass (Chronic) UTI (urinary tract infection) (Chronic) Urinary tract infection (Chronic) Meningitis (Chronic) Acute bacterial meningitis (Chronic) Dermatitis of vulva (Chronic) Dermatitis associated with moisture (Chronic) 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) Candidiasis of genitalia in female (Chronic) Low back pain (Chronic) Secondary adrenal insufficiency (Chronic) Cellulitis (Chronic) Venous stasis dermatitis of right lower extremity (Chronic) Cellulitis (Chronic) Multiple thyroid nodules (Chronic) Sciatica (Chronic) Herniated disc (Chronic) DDD (degenerative disc disease) (Chronic) Bone spur of foot (Chronic) Plantar fasciitis, bilateral (Chronic) Bursitis of hip (Chronic) Neuropathy (Chronic) Fibromyalgia (Chronic) Osteoporosis (Chronic) Migraine (Chronic) Liver disease (Chronic) Focal nodular hyperplasia of liver (Chronic) Joint pain (Chronic) Insomnia (Chronic) High blood pressure (Chronic) Gallbladder problem (Chronic) Diabetes mellitus, type II (Chronic) Depression (Chronic) Daytime sleepiness (Chronic) Muscle pain (Chronic) Arthritis (Chronic) Anxiety (Chronic) Medical History Acute bacterial meningitis Anxiety Arthritis Bilateral sacroiliitis Bone spur of foot right Bursitis of hip bilateral Cellulitis Cellulitis Chronic intractable pain Chronic SI joint pain Daytime sleepiness DDD (degenerative disc disease) Depression Dermatitis associated with moisture Dermatitis of vulva Diabetes mellitus, type II Fibromyalgia Focal nodular hyperplasia of liver Gallbladder problem Herniated disc High blood pressure Insomnia Joint pain Liver disease Meningitis Migraine Muscle pain chronic 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 Protection dressings and off loading. Neuropathy Osteoporosis Plantar fasciitis, bilateral Sciatica Urinary tract infection UTI (urinary tract infection) Venous stasis dermatitis of right lower extremity Surgical History H/O adenoidectomy H/O hand surgery fingers rebroke and reset H/O shoulder surgery two scopes H/O: hysterectomy History of placement of ear tubes History of surgery of liver tumor on liver, removed half of liver Hx of cholecystectomy Previous section x2 S/P knee replacement bilateral knees replaced S/P right knee arthroscopy Family History Mother Arthritis Malignant neoplasm Diabetes mellitus Hypertension Migraine Cerebrovascular accident (CVA) Father Arthritis Dementia Hypertension Aunt Malignant neoplasm Cousin Myocardial Infarction Social History (Updated 03/22/19 @ 14:12 by Elvin Wang PA-C) marital status: alcohol intake frequency: does not drink substance use type: does not use MEDS/ALLERGIES Home Medications and Allergies Home Medications Medication Instructions Recorded Confirmed Type gabapentin 800 mg tablet 800 mg PO Q4 tab 08/07/15 03/16/21 History hydrocodone 10 mg-acetaminophen 1 tab PO PRN PRN 08/07/15 03/16/21 History 325 mg tablet duloxetine 60 mg capsule,delayed 60 mg PO BID cap 10/02/15 03/16/21 History release (Cymbalta) hydrocortisone 5 mg tablet 10 mg PO .COMPLEX 01/08/16 03/16/21 History cholecalciferol (vitamin D3) 125 5,000 unit PO QDAY cap 07/08/16 03/16/21 History mcg (5,000 unit) capsule ibuprofen 200 mg capsule 600 mg PO QID cap 01/18/17 03/16/21 History metformin 1,000 mg 24 hr 1,000 mg PO BID #120 tab 11/08/17 03/16/21 Rx tablet,extended release atorvastatin 40 mg tablet 40 mg PO QDAY 03/22/19 03/16/21 History glipizide 2.5 mg tablet, extended 10 mg PO BID tab 03/22/19 03/16/21 History release 24 hr baclofen 10 mg tablet 10 mg PO TID 09/02/20 03/16/21 History buprenorphine HCl 2 mg sublingual 2 mg SUBLINGUAL TID 09/02/20 03/09/21 History tablet pioglitazone 30 mg tablet 30 mg PO QDAY 09/17/20 03/16/21 History valsartan 320 1 tab PO 1200 09/17/20 03/16/21 History mg-hydrochlorothiazide 12.5 mg tablet cyanocobalamin (vitamin B-12) 2,000 mcg SUBLINGUAL QDAY 03/09/21 03/16/21 History 1,000 mcg sublingual tablet magnesium oxide 400 mg PO QDAY 03/09/21 03/16/21 History pyridoxine (vitamin B6) 100 mg 100 mg PO QDAY 03/09/21 03/16/21 History tablet (Vitamin B-6) rizatriptan 10 mg tablet (Maxalt) 10 mg PO PRN PRN 03/09/21 03/16/21 History topiramate 25 mg tablet 25 mg PO QDAY 03/09/21 03/16/21 History vitamin E 400 unit capsule 400 unit PO QDAY 03/09/21 03/16/21 History doxycycline monohydrate 100 mg 100 mg PO BID #14 tab 03/12/21 03/16/21 Rx tablet Allergies Allergy/AdvReac Type Severity Reaction Status Date / Time Sulfa (Sulfonamide Allergy Mild Rash Verified 03/16/21 10:55 Antibiotics) EXAM Constitutional Vitals: Temp Pulse Resp BP Pulse Ox 97.5 F 63 18 99/77 91 03/16/21 10:52 03/16/21 13:48 03/16/21 10:52 03/16/21 13:42 11/15/21 13:48 Exam: General: Alert, Awake, No acute Distress, obese Eyes/N/T: EOMI, PERRL, Head/Neck: neck supple, normocephalic atraumatic CV: RRR, No murmurs, normal s1/s2 Pulm: Clear b/l, no wheezing/rhonchi/rales Abd: soft, nontender, +BS x4 Ext: no clubbing/cyanosis, b/l LE edma R>L, ulcer to ball of foot and medial side near great toe, erythema/edema/tender Neuro: Alert, no focal deficits, moves all extremities, CN 2-12 grossly intact, symmetrical strength b/l upper/lower, sensations intact decreased lower extremities chronically Skin: warm/dry DATA Data Completed and Pending Labs: Labs from last 24 hours 03/16/21 03/16/21 03/16/21 12:10 12:10 12:10 WBC 9.4 RBC 4.03 Hgb 10.5 L Hct 34.4 MCV 85.4 MCH 26.1 MCHC 30.5 L RDW 16.4 H Plt Count 361 MPV 9.8 Neut % (Auto) 68.7 Lymph % (Auto) 21.7 [place] % (Auto) 6.1 Eos % (Auto) 3.0 Baso % (Auto) 0.5 Lymph # (Auto) 2.04 [place] # (Auto) 0.57 Eos # (Auto) 0.28 Baso # (Auto) 0.05 Absolute Neutrophils 6.48 ESR Pending VBG Lactic Acid 1.2 Sodium 140 Potassium 3.7 Chloride 101 Carbon Dioxide 26 Anion Gap 13.0 BUN 22 H Creatinine 0.8 POC Creatinine 0.9 GFR Calculation 81 Glucose 76 Calcium 9.4 Total Bilirubin 0.4 AST 23 ALT 19 Alkaline Phosphatase 113 C-Reactive Protein 0.80 Total Protein 7.1 Albumin 4.0 Globulin 3.1 Albumin/Globulin Ratio 1.3 A/P Narrative A/P Narrative: A: *Left foot/toe diabetic wound infection/cellulitis/abscess: *DM w/neuropathy: *Anemia, chronic *HTN/HLD: *Depression/anxiety: *Adrenal insufficiency: cont home hydrocortisone *Obesity: * P: -Dr. Mahajan podiatry for I&D -Antibiotics, pending BC/WC, MRSA screen -wound care -SSI -Continue home BP meds -Continue home psych meds - -DT/OT -ppx: heparin Time Spent With Patient Time: Total time spent is greater than 50% in coordination of care (as documented) at patient's floor/unit and/or counseling patient:
--- NOTE | 2021-03-16 14:35 | EKG ---
[facility] Test Date: 2021-03-16 Pat Name: Amber Weiss Department: ED Room: Gender: Female [employer] Mate: sb : 1965 Requested By: Jose Myles Order Number: [id number] Reading MD: Jason Smith Measurements Intervals [place] Rate: 69 P: 49 NV: 170 QRS: 20 QRSD: 104 T: 38 QT: 424 QTc: 455 Interpretive Statements Sinus rhythm Baseline wander in lead(s) V1 Electronically Signed On 03-16-2021 14:35:05 PST by Jason Smith /store/[email or web address]/[id number]
[2021-03-16] MEDS ORDERED: RIZATRIPTAN 10 MG TABLET PO PRN (14:59)
[2021-03-16] MEDS ORDERED: POTASSIUM CHLORIDE 40 MEQ in DEXTROSE 5% IN WATER 500 ML IV PRN (14:59)
[2021-03-16] MEDS ORDERED: MAGNESIUM SULFATE 2 GM/50 ML BAG IV PRN (14:59)
[2021-03-16] MEDS ORDERED: POLYETHYLENE GLYCOL 3350 17 GM PACKET PO PRN (14:59)
[2021-03-16] MEDS ORDERED: IPRATROPIUM/ALBUTEROL 3 ML AMPUL.NEB NEB PRN (14:59)
[2021-03-16] MEDS ORDERED: ACETAMINOPHEN 325 MG TABLET PO PRN (14:59)
[2021-03-16] MEDS ORDERED: morphine 4 MG/ML VIAL IV PRN (14:59)
[2021-03-16] MEDS ORDERED: POTASSIUM CHLORIDE 20 MEQ TABLET PO PRN ×2 (14:59)
[2021-03-16] MEDS ORDERED: DEXTROSE 50% 50 ML VIAL IV PRN (14:59)
[2021-03-16] MEDS ORDERED: SENNOSIDES 1 TABLET PO PRN (14:59)
[2021-03-16] MEDS ORDERED: ONDANSETRON 4 MG/2 ML VIAL IV PRN (14:59)
[2021-03-16] MEDS ORDERED: DEXTROSE 31 GM ORAL.SUSP PO PRN (14:59)
[2021-03-16] MEDS ORDERED: HYDROcodone/APAP 10/325MG TABLET PO PRN (14:59)
[2021-03-16] MEDS: BACLOFEN 10 MG TABLET PO SCH ×2 (15:09→20:17)
[2021-03-16 15:15] LABS: Erythrocyte Sedimentation Rate 52 mm/hr (0-20)
[2021-03-16] MEDS: GABAPENTIN 400 MG CAPSULE PO SCH ×2 (15:52→20:17)
[2021-03-16] MEDS: HYDROCORTISONE 10 MG TABLET PO SCH (15:52)
[2021-03-16 16:29] LABS: Hemoglobin A1C 5.8 % Hgb (4.0-6.0)
[2021-03-16] MEDS: INSULIN LISPRO 1 UNIT/0.01 ML UNIT SQ SCH ×2 (16:50→20:29)
[2021-03-16] MEDS: PIPERACILLIN SODIUM/TAZOBACTAM 3.375 GM in DEXTROSE 5% IN WATER 50 ML IV SCH (17:21)
[2021-03-16] MEDS: HYDROcodone/APAP 10/325MG TABLET PO PRN (18:52)
[2021-03-16] MEDS: 0.9 % SODIUM CHLORIDE 10 ML SYRINGE IV SCH (20:19)
[2021-03-16] MEDS: DOCUSATE SODIUM 100 MG CAPSULE PO SCH (20:19)
[2021-03-16] MEDS: HEPARIN 5,000 UNIT/ML VIAL SQ SCH (20:29)
[2021-03-16] MEDS: DULoxetine 30 MG CAPSULE PO SCH (20:30)
[2021-03-17] MEDS: PIPERACILLIN SODIUM/TAZOBACTAM 3.375 GM in DEXTROSE 5% IN WATER 50 ML IV SCH ×5 (00:17→23:40)
[2021-03-17] MEDS: 0.9 % SODIUM CHLORIDE 10 ML SYRINGE IV SCH ×3 (05:51→20:32)
[2021-03-17 06:50] LABS: Basophils # (Auto) 0.02 K/mcL (0.00-0.30); Basophils % (Auto) 0.2 % (0.0-2.0); Eosinophils # (Auto) 0 K/mcL (0.00-0.70); Eosinophils % (Auto) 0 % (0.0-7.0); Hematocrit 31.5 % (34.1-44.9); Hemoglobin 9.9 g/dL (11.2-15.7); Lymphocytes # (Auto) 1.32 K/mcL (1.50-4.80); Lymphocytes % (Auto) 15.2 % (15.5-49.0); Mean Corpuscular HGB Conc 31.4 g/dL (31.0-36.0); Mean Platelet Volume 9.5 fL (7.4-10.4); Monocytes # (Auto) 0.43 K/mcL (0.10-0.90); Monocytes % (Auto) 4.9 % (1.0-12.0); Neutrophils % (Auto) 79.7 % (38.0-78.0); Platelet Count 346 K/mcL (140-440); RBC 3.75 M/mcL (3.59-5.38); Red Cell Distribution Width 16.1 % (11.5-14.5); WBC 8.7 K/mcL (4.5-11.0)
[2021-03-17] MEDS: INSULIN LISPRO 1 UNIT/0.01 ML UNIT SQ SCH ×4 (07:16→20:07)
[2021-03-17 07:29] LABS: ALT/SGPT 16 U/L (<40); AST/SGOT 18 U/L (<32); Albumin 3.7 gm/dL (3.2-5.2); Albumin/Globulin Ratio 1.3 (1.0-2.3); Alkaline Phosphatase 96 U/L (39-117); Bilirubin,Direct < 0.2 mg/dL (0-0.3); Bilirubin,Total 0.3 mg/dL (0.1-1.0); Blood Urea Nitrogen 26 mg/dL (6-20); Calcium 9.3 mg/dL (8.6-10.4); Carbon Dioxide 24 mmol/L (22-30); Chloride 103 mmol/L (96-108); Globulin 2.8 gm/dL (2.2-3.7); Glomerular Filtration Rate 95; Glucose 129 mg/dL (70-105); Lactate Dehydrogenase 204 U/L (135-225); Phosphorous 3.6 mg/dL (2.5-4.5); Triglycerides 89 mg/dL (<150)
--- NOTE | 2021-03-17 08:23 | Internal Med Progress Note ---
SUBJECTIVE Subjective Patient information: Note initiated : 03/17/21 at 8:21 am Service Date, if different from initiated Date: [] Patient: Amber Weiss 56 y/o F admitted on 03/16/21 for Foot Infection. Chief Complaint: [] Interval history: History of present illness: Ms. Weiss is a 56 year old F Presents from Dr. Mahajan's office for left foot toe cellulitis with pustular drainage redness swelling tenderness. Patient failed outpatient antibiotics and also will likely need surgical I&D. Was on doxycycline outpatient. 03/17 No change overnight. Seen by Dr. Mahajan who performed surgical I&D tomorrow. Review of Systems: denies headache/fever/chills/nausea/vomiting/chest or abdominal pain/cough/dyspnea/diarrhea. Otherwise see above. Constitutional Vitals: Vital Signs Temp Pulse Resp BP Pulse Ox 97.9 F 66 20 125/68 98 03/17/21 07:00 03/17/21 07:00 03/17/21 07:00 03/17/21 07:00 03/17/21 07:00 Period Temp Pulse Resp BP Sys/Schultz Pulse Ox Last 24 Hr 97.5 F-98.5 F 63-81 12-20 86-182/57-136 91-100 Intake and Output 03/16/21 03/17/21 03/17/21 21:59 05:59 13:59 Intake Total 1910 50 Output Total 1400 Balance 0 -1350 Weight 166.015 kg 174.089 kg Intake & Output: Intake & Output 03/16/21 03/17/21 03/17/21 21:59 05:59 13:59 Intake Total 1910 50 Output Total 1400 Balance 1909 -135 Weight 166.015 kg 174.089 kg Intake: IV 1550 50 Sodium Chloride 0.9% 1,000 ml @ 1000 Wide Open IV .Q0M ONE Rx#: [id number] Zosyn 3.375 gm In Dextrose 5% 50 50 in Water 50 ml @ 100 mls/hr IV Q6H [facility] Rx#:[id number] Vancomycin 2,000 mg In Sodium 500 Chloride 0.9% 500 ml @ 250 mls/ hr IV ONCE ONE Rx#:[id number] Oral 360 0 Output: Void Amount 1400 Other: Meal Dinner Percent of Meal Consumed 100% Feeding Ability Independent Urine Appearance Clear Urine Color Bright Yellow # Voids 1 Exam: General: Alert, Awake, No acute Distress, obese Eyes/N/T: EOMI, Head/Neck: neck supple, CV: RRR, No murmurs, Pulm: Clear b/l, no wheezing/rhonchi/rales Abd: soft, nontender, +BS x4 Ext: no clubbing/cyanosis, b/l LE edma R>L, ulcer to ball of foot and medial side near great toe, erythema/edema/tender Neuro: Alert, no focal deficits, moves all extremities, decreased lower extremities chronically Skin: warm/dry OBJ DATA Labs CBC & Chem 7: 03/17/21 05:24 03/17/21 05:24 Labs: Abnormal Lab Results 03/17/21 03/17/21 03/16/21 05:24 05:24 12:10 Hgb 9.9 L Hct 31.5 L MCHC RDW 16.1 H Neut % (Auto) 79.7 H Lymph % (Auto) 15.2 L Lymph # (Auto) 1.32 L ESR BUN 26 H 22 H Glucose 129 H GGT 40 H 03/16/21 12:10 Hgb 10.5 L Hct MCHC 30.5 L RDW 16.4 H Neut % (Auto) Lymph % (Auto) Lymph # (Auto) ESR 52 H BUN Glucose GGT Meds: Medications Acetaminophen (Acetaminophen 325 Mg Tablet) 650 mg PO Q6HP PRN; Protocol PRN Reason: Per Pain Protocol/Fever > 101 Hydrocodone Bitart/Acetaminophen (Hydrocodone/Apap 10/325mg Tablet) 1 tab PO BIDP PRN; Protocol PRN Reason: Pain Last Admin: 03/16/21 18:52 Dose: 1 tab Documented by: Albuterol/Ipratropium (Ipratropium/Albuterol 3 Ml Ampul.Neb) 3 ml NEB Q4HP PRN PRN Reason: Shortness Of Breath Atorvastatin Calcium (Atorvastatin 40 Mg Tablet) 40 mg PO QDAY [facility] Baclofen (Baclofen 10 Mg Tablet) 10 mg PO TID [facility] Last Admin: 03/16/21 20:17 Dose: 10 mg Documented by: Dextrose (Dextrose 50% 50 Ml Vial) 0 ml IV UD PRN PRN Reason: Hypoglycemia Diagnostic Test (Pha) (Accu-Chek 1 Each Strip) 1 each FS ACHS [facility] Last Admin: 03/17/21 07:15 Dose: 1 each Documented by: Docusate Sodium (Docusate Sodium 100 Mg Capsule) 100 mg PO BID [facility] Last Admin: 03/16/21 20:19 Dose: Not Given Documented by: Duloxetine HCl (Duloxetine 30 Mg Capsule) 60 mg PO BID [facility] Last Admin: 03/16/21 20:30 Dose: Not Given Documented by: Gabapentin (Gabapentin 400 Mg Capsule) 800 mg PO QID [facility] Last Admin: 03/16/21 20:17 Dose: 800 mg Documented by: Glucose (Dextrose 31 Gm Oral.Susp) 15 gm PO PRN PRN PRN Reason: Hypoglycemia Heparin Sodium (Porcine) (Heparin 5,000 Unit/Ml Vial) 5,000 unit SQ Q12 [facility] Last Admin: 03/16/21 20:29 Dose: 5,000 unit Documented by: Hydrochlorothiazide (Hydrochlorothiazide 12.5 Mg Capsule) 12.5 mg PO DAILY [facility] Hydrocortisone (Hydrocortisone 10 Mg Tablet) 10 mg PO QAMCC [facility] Hydrocortisone (Hydrocortisone 10 Mg Tablet) 5 mg PO QPMCC [facility] Last Admin: 03/16/21 15:52 Dose: Not Given Documented by: Potassium Chloride 40 meq/ (Dextrose) 520 mls @ 130 mls/hr IV UD PRN PRN Reason: Potassium < 3 Magnesium Sulfate (Magnesium Sulfate) 2 gm in 50 mls @ 50 mls/hr IV UD PRN PRN Reason: Magnesium </= 1.6 Piperacillin Sod/Tazobactam (Sod 3.375 gm/ Dextrose) 50 mls @ 100 mls/hr IV Q6H [facility]; Protocol Last Admin: 03/17/21 05:50 Dose: 100 mls/hr Documented by: Insulin Human Lispro (Insulin Lispro 1 Unit/0.01 Ml Unit) 0 unit SQ [facility]; Protocol Last Admin: 03/17/21 07:16 Dose: Not Given Documented by: Magnesium Oxide (Magnesium Oxide 400 Mg Tablet) 400 mg PO DAILY [facility] Morphine Sulfate (Morphine 4 Mg/Ml Vial) 0 mg IV Q3HP PRN PRN Reason: Pain Last Admin: 03/16/21 23:50 Dose: 4 mg Documented by: Olmesartan (Olmesartan Medoxomil 20 Mg Tablet) 40 mg PO DAILY [facility] Ondansetron HCl (Ondansetron 4 Mg/2 Ml Vial) 4 mg IV Q4HP PRN PRN Reason: Nausea And Vomiting Polyethylene Glycol (Polyethylene Glycol 3350 17 Gm Packet) 17 gm PO DAILYP PRN PRN Reason: Constipation Potassium Chloride (Potassium Chloride 20 Meq Tablet) 40 meq PO UD PRN PRN Reason: Potssium is 3-3.5 Potassium Chloride (Potassium Chloride 20 Meq Tablet) 40 meq PO UD PRN PRN Reason: Potassium < 3 Rizatriptan Benzoate (Rizatriptan 10 Mg Tablet) 10 mg PO DAILYP PRN PRN Reason: migraines Senna (Sennosides 1 Tablet) 2 tab PO DAILYP PRN PRN Reason: Constipation Sodium Chloride (0.9 % Sodium Chloride 10 Ml Syringe) 10 ml IV Q8 [facility] Last Admin: 03/17/21 05:51 Dose: 10 ml Documented by: Topiramate (Topiramate 25 Mg Tablet) 25 mg PO QDAY [facility] A/P Narrative A/P Narrative: A: *Left foot/toe diabetic wound infection/cellulitis/abscess: failed outpt treatment *DM w/neuropathy: *Anemia, chronic *HTN/HLD: *Depression/anxiety: *Adrenal insufficiency: cont home hydrocortisone *Obesity: P: -Dr. Mahajan podiatry for I&D -Antibiotics, pending BC/WC, MRSA screen neg -wound care -SSI -Continue home BP meds -Continue home psych meds -PT/OT -ppx: heparin Time Spent With Patient Time: Total time spent is greater than 50% in coordination of care (as documented) at patient's floor/unit and/or counseling patient:
[2021-03-17] MEDS: BACLOFEN 10 MG TABLET PO SCH ×3 (09:56→20:28)
[2021-03-17] MEDS: TOPIRAMATE 25 MG TABLET PO SCH (09:56)
[2021-03-17] MEDS: DULoxetine 30 MG CAPSULE PO SCH ×2 (09:56→20:29)
[2021-03-17] MEDS: GABAPENTIN 400 MG CAPSULE PO SCH ×4 (09:56→20:28)
[2021-03-17] MEDS: ATORVASTATIN 40 MG TABLET PO SCH (09:56)
[2021-03-17] MEDS: HEPARIN 5,000 UNIT/ML VIAL SQ SCH ×2 (09:56→20:30)
[2021-03-17] MEDS: MAGNESIUM OXIDE 400 MG TABLET PO SCH (09:57)
[2021-03-17] MEDS: OLMESARTAN MEDOXOMIL 20 MG TABLET PO SCH (09:57)
[2021-03-17] MEDS: HYDROCORTISONE 10 MG TABLET PO SCH ×2 (09:57→17:44)
[2021-03-17] MEDS: HYDROCHLOROTHIAZIDE 12.5 MG CAPSULE PO SCH (09:57)
[2021-03-17] MEDS: DOCUSATE SODIUM 100 MG CAPSULE PO SCH ×2 (10:00→20:29)
[2021-03-17] MEDS: BUPRENORPHINE HCL 2 MG TAB.SUBL SL SCH ×3 (10:28→20:29)
[2021-03-17] MEDS ORDERED: VALSARTAN HYDROCHLOROTHIAZIDE PO SCH (12:00)
--- NOTE | 2021-03-17 13:06 | Orthopedic Consult Note ---
HPI Data of Consult Consult date: 03/17/21 Requesting physician: Buck Stanley Primary Care Provider: BENNY Manzo Consult Narrative Chief complaint: Left foot infection cc:: CC: Buck Stanley [facility] All Active Problems (Updated 03/16/21 @ 11:46 by Jose Myles MD) Piriformis syndrome (Acute) Sciatica of right side (Acute) Diabetic infection of left foot (Acute) Diabetic foot ulcer associated with type 2 diabetes mellitus (Acute) Cellulitis and abscess of foot (Acute) Cellulitis of foot, left (Acute) Diabetic foot ulcer (Acute) Type 2 diabetes mellitus with diabetic mononeuropathy (Acute) Chronic intractable pain (Acute) Bilateral sacroiliitis (Acute) Chronic SI joint pain (Acute) Cellulitis of lower extremity (Chronic) Sepsis (Chronic) Somatic dysfunction of rib (Chronic) Lumbago with sciatica, right side (Chronic) Thyroid nodule (Chronic) Essential hypertension (Chronic) Hyperlipidemia (Chronic) Hypovitaminosis D (Chronic) Renal mass (Chronic) UTI (urinary tract infection) (Chronic) Urinary tract infection (Chronic) Meningitis (Chronic) Acute bacterial meningitis (Chronic) Dermatitis of vulva (Chronic) Dermatitis associated with moisture (Chronic) 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) Candidiasis of genitalia in female (Chronic) Low back pain (Chronic) Secondary adrenal insufficiency (Chronic) Cellulitis (Chronic) Venous stasis dermatitis of right lower extremity (Chronic) Cellulitis (Chronic) Multiple thyroid nodules (Chronic) Sciatica (Chronic) Herniated disc (Chronic) DDD (degenerative disc disease) (Chronic) Bone spur of foot (Chronic) Plantar fasciitis, bilateral (Chronic) Bursitis of hip (Chronic) Neuropathy (Chronic) Fibromyalgia (Chronic) Osteoporosis (Chronic) Migraine (Chronic) Liver disease (Chronic) Focal nodular hyperplasia of liver (Chronic) Joint pain (Chronic) Insomnia (Chronic) High blood pressure (Chronic) Gallbladder problem (Chronic) Diabetes mellitus, type II (Chronic) Depression (Chronic) Daytime sleepiness (Chronic) Muscle pain (Chronic) Arthritis (Chronic) Anxiety (Chronic) Medical History Acute bacterial meningitis Anxiety Arthritis Bilateral sacroiliitis Bone spur of foot right Bursitis of hip bilateral Cellulitis Cellulitis Chronic intractable pain Chronic SI joint pain Daytime sleepiness DDD (degenerative disc disease) Depression Dermatitis associated with moisture Dermatitis of vulva Diabetes mellitus, type II Fibromyalgia Focal nodular hyperplasia of liver Gallbladder problem Herniated disc High blood pressure Insomnia Joint pain Liver disease Meningitis Migraine Muscle pain chronic 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 Protection dressings and off loading. Neuropathy Osteoporosis Plantar fasciitis, bilateral Sciatica Urinary tract infection UTI (urinary tract infection) Venous stasis dermatitis of right lower extremity Surgical History H/O adenoidectomy H/O hand surgery fingers rebroke and reset H/O shoulder surgery two scopes H/O: hysterectomy History of placement of ear tubes History of surgery of liver tumor on liver, removed half of liver Hx of cholecystectomy Previous section x2 S/P knee replacement bilateral knees replaced S/P right knee arthroscopy Family History Mother Arthritis Malignant neoplasm Diabetes mellitus Hypertension Migraine Cerebrovascular accident (CVA) Father Arthritis Dementia Hypertension Aunt Malignant neoplasm Cousin Myocardial Infarction Social History (Updated 03/22/19 @ 14:12 by Elvin Wang PA-C) marital status: alcohol intake frequency: does not drink substance use type: does not use MEDS/ALLERGIES Home Medications and Allergies Home Medications Medication Instructions Recorded Confirmed Type gabapentin 800 mg tablet 800 mg PO Q4 tab 08/07/15 03/16/21 History hydrocodone 10 mg-acetaminophen 1 tab PO PRN PRN 08/07/15 03/16/21 History 325 mg tablet duloxetine 60 mg capsule,delayed 60 mg PO BID cap 10/02/15 03/16/21 History release (Cymbalta) hydrocortisone 5 mg tablet 10 mg PO .COMPLEX 01/08/16 03/16/21 History cholecalciferol (vitamin D3) 125 5,000 unit PO QDAY cap 07/08/16 03/16/21 History mcg (5,000 unit) capsule ibuprofen 200 mg capsule 600 mg PO QID cap 01/18/17 03/16/21 History metformin 1,000 mg 24 hr 1,000 mg PO BID #120 tab 11/08/17 03/16/21 Rx tablet,extended release atorvastatin 40 mg tablet 40 mg PO QDAY 03/22/19 03/16/21 History glipizide 2.5 mg tablet, extended 10 mg PO BID tab 03/22/19 03/16/21 History release 24 hr baclofen 10 mg tablet 10 mg PO TID 09/02/20 03/16/21 History buprenorphine HCl 2 mg sublingual 2 mg SUBLINGUAL TID 09/02/20 03/16/21 History tablet pioglitazone 30 mg tablet 30 mg PO QDAY 09/17/20 03/16/21 History valsartan 320 1 tab PO 1200 09/17/20 03/16/21 History mg-hydrochlorothiazide 12.5 mg tablet cyanocobalamin (vitamin B-12) 2,000 mcg SUBLINGUAL QDAY 03/09/21 03/16/21 History 1,000 mcg sublingual tablet magnesium oxide 400 mg PO QDAY 03/09/21 03/16/21 History pyridoxine (vitamin B6) 100 mg 100 mg PO QDAY 03/09/21 03/16/21 History tablet (Vitamin B-6) rizatriptan 10 mg tablet (Maxalt) 10 mg PO PRN PRN 03/09/21 03/16/21 History topiramate 25 mg tablet 25 mg PO QDAY 03/09/21 03/16/21 History vitamin E 400 unit capsule 400 unit PO QDAY 03/09/21 03/16/21 History doxycycline monohydrate 100 mg 100 mg PO BID #14 tab 03/12/21 03/16/21 Rx tablet Allergies Allergy/AdvReac Type Severity Reaction Status Date / Time Sulfa (Sulfonamide Allergy Mild Rash Verified 03/16/21 14:58 Antibiotics) Physical Examination Narrative Narrative: Narrative: A/P Narrative A/P Narrative: Heart S1-S2 no murmur Lungs clear to auscultation Incision and drainage with removal of the medial first sesamoid bone of left foot scheduled tomorrow at noon. Time Spent With Patient Time: Total time spent is greater than 50% in coordination of care (as documented) at patient's floor/unit and/or counseling patient:
[2021-03-17] MEDS: HYDROcodone/APAP 10/325MG TABLET PO PRN (20:29)
[2021-03-18] MEDS: PIPERACILLIN SODIUM/TAZOBACTAM 3.375 GM in DEXTROSE 5% IN WATER 50 ML IV SCH ×4 (05:08→23:50)
[2021-03-18] MEDS: 0.9 % SODIUM CHLORIDE 10 ML SYRINGE IV SCH ×5 (05:47→22:57)
[2021-03-18] MEDS: INSULIN LISPRO 1 UNIT/0.01 ML UNIT SQ SCH ×4 (07:40→21:43)
--- NOTE | 2021-03-18 08:06 | Internal Med Progress Note ---
SUBJECTIVE Subjective Patient information: Note initiated : 03/18/21 at 8:04 am Service Date, if different from initiated Date: [] Patient: Amber Weiss 56 y/o F admitted on 03/16/21 for Foot Infection. Chief Complaint: [] Interval history: History of present illness: Ms. Weiss is a 56 year old F Presents from Dr. Mahajan's office for left foot toe cellulitis with pustular drainage redness swelling tenderness. Patient failed outpatient antibiotics and also will likely need surgical I&D. Was on doxycycline outpatient. 03/17 No change overnight. Seen by Dr. Mahajan who performed surgical I&D tomorrow. 03/18 No overnight event or new complaints. Awaiting surgical I&D today. Review of Systems: denies headache/fever/chills/nausea/vomiting/chest or abdominal pain/cough/dyspnea/diarrhea. Otherwise see above. Constitutional Vitals: Vital Signs Temp Pulse Resp BP Pulse Ox 96 F L 71 18 149/67 97 03/18/21 03:59 03/18/21 03:59 03/18/21 03:59 03/18/21 03:59 03/18/21 03:59 Period Temp Pulse Resp BP Sys/Schultz Pulse Ox Last 24 Hr 96 F-98.1 F 68-86 12-20 95-149/53-74 95-100 Intake and Output 03/17/21 03/18/21 03/18/21 21:59 05:59 13:59 Intake Total 650 100 Output Total 900 1100 700 Balance -250 -1000 -700 Weight 174.089 kg Intake & Output: Intake & Output 03/17/21 03/18/21 03/18/21 21:59 05:59 13:59 Intake Total 650 100 Output Total 900 1100 700 Balance -250 -1000 -700 Weight 174.089 kg Intake: IV 50 100 Zosyn 3.375 gm In Dextrose 5% 50 100 in Water 50 ml @ 100 mls/hr IV Q6H [facility] Rx#:[id number] Oral 600 Output: Void Amount 900 1100 700 Other: Urine Color Dark Yellow Urine Odor Strong Exam: General: Alert, Awake, No acute Distress, obese Eyes/N/T: EOMI, Head/Neck: neck supple, CV: RRR, No murmurs, Pulm: Clear b/l, no wheezing/rhonchi/rales Abd: soft, nontender, +BS x4 Ext: no clubbing/cyanosis, b/l LE edma R>L, ulcer to ball of foot and medial side near great toe, erythema/edema/tender Neuro: Alert, no focal deficits, moves all extremities, decreased lower extremities chronically Skin: warm/dry OBJ DATA Labs CBC & Chem 7: 03/17/21 05:24 03/17/21 05:24 Labs: Abnormal Lab Results 03/17/21 03/17/21 03/16/21 05:24 05:24 12:10 Hgb 9.9 L Hct 31.5 L MCHC RDW 16.1 H Neut % (Auto) 79.7 H Lymph % (Auto) 15.2 L Lymph # (Auto) 1.32 L ESR BUN 26 H 22 H Glucose 129 H GGT 40 H 03/16/21 12:10 Hgb 10.5 L Hct MCHC 30.5 L RDW 16.4 H Neut % (Auto) Lymph % (Auto) Lymph # (Auto) ESR 52 H BUN Glucose GGT Meds: Medications Acetaminophen (Acetaminophen 325 Mg Tablet) 650 mg PO Q6HP PRN; Protocol PRN Reason: Per Pain Protocol/Fever > 101 Hydrocodone Bitart/Acetaminophen (Hydrocodone/Apap 10/325mg Tablet) 1 tab PO BIDP PRN; Protocol PRN Reason: Pain Last Admin: 03/17/21 20:29 Dose: 1 tab Documented by: Albuterol/Ipratropium (Ipratropium/Albuterol 3 Ml Ampul.Neb) 3 ml NEB Q4HP PRN PRN Reason: Shortness Of Breath Atorvastatin Calcium (Atorvastatin 40 Mg Tablet) 40 mg PO QDAY [facility] Last Admin: 03/17/21 09:56 Dose: 40 mg Documented by: Baclofen (Baclofen 10 Mg Tablet) 10 mg PO TID [facility] Last Admin: 03/17/21 20:28 Dose: 10 mg Documented by: Buprenorphine HCl (Buprenorphine Hcl 2 Mg Tab.Subl) 2 mg SL TID [facility] Last Admin: 03/17/21 20:29 Dose: 2 mg Documented by: Dextrose (Dextrose 50% 50 Ml Vial) 0 ml IV UD PRN PRN Reason: Hypoglycemia Diagnostic Test (Pha) (Accu-Chek 1 Each Strip) 1 each FS ACHS [facility] Last Admin: 03/18/21 07:39 Dose: 1 each Documented by: Docusate Sodium (Docusate Sodium 100 Mg Capsule) 100 mg PO BID [facility] Last Admin: 03/17/21 20:29 Dose: Not Given Documented by: Duloxetine HCl (Duloxetine 30 Mg Capsule) 60 mg PO BID [facility] Last Admin: 03/17/21 20:29 Dose: 60 mg Documented by: Gabapentin (Gabapentin 400 Mg Capsule) 800 mg PO QID [facility] Last Admin: 03/17/21 20:28 Dose: 800 mg Documented by: Glucose (Dextrose 31 Gm Oral.Susp) 15 gm PO PRN PRN PRN Reason: Hypoglycemia Heparin Sodium (Porcine) (Heparin 5,000 Unit/Ml Vial) 5,000 unit SQ Q12 [facility] Last Admin: 03/17/21 20:30 Dose: 5,000 unit Documented by: Hydrochlorothiazide (Hydrochlorothiazide 12.5 Mg Capsule) 12.5 mg PO DAILY [facility] Last Admin: 03/17/21 09:57 Dose: 12.5 mg Documented by: [facility]cortisone ([facility] 10 Mg [facility]t) [facility] Admin: 03/17/21 09:57 Dose: 10 mg Documented by: Hydrocortisone (Hydrocortisone 10 Mg Tablet) 5 mg PO QPMCC [facility] Last Admin: 03/17/21 17:44 Dose: 5 mg Documented by: Potassium Chloride 40 meq/ (Dextrose) 520 mls @ 130 mls/hr IV UD PRN PRN Reason: Potassium < 3 Magnesium Sulfate (Magnesium Sulfate) 2 gm in 50 mls @ 50 mls/hr IV UD PRN PRN Reason: Magnesium </= 1.6 Piperacillin Sod/Tazobactam (Sod 3.375 gm/ Dextrose) 50 mls @ 100 mls/hr IV Q6H [facility]; Protocol Last Infusion: 03/18/21 05:48 Dose: Infused Documented by: Insulin Human Lispro (Insulin Lispro 1 Unit/0.01 Ml Unit) 0 unit SQ ACHS [facility]; Protocol Last Admin: 03/18/21 07:40 Dose: Not Given Documented by: Magnesium Oxide (Magnesium Oxide 400 Mg Tablet) 400 mg PO DAILY [facility] Last Admin: 03/17/21 09:57 Dose: 400 mg Documented by: Morphine Sulfate (Morphine 4 Mg/Ml Vial) 0 mg IV Q3HP PRN PRN Reason: Pain Last Admin: 03/16/21 23:50 Dose: 4 mg Documented by: Olmesartan (Olmesartan Medoxomil 20 Mg Tablet) 40 mg PO DAILY [facility] Last Admin: 03/17/21 09:57 Dose: 40 mg Documented by: Ondansetron HCl (Ondansetron 4 Mg/2 Ml Vial) 4 mg IV Q4HP PRN PRN Reason: Nausea And Vomiting Polyethylene Glycol (Polyethylene Glycol 3350 17 Gm Packet) 17 gm PO DAILYP PRN PRN Reason: Constipation Potassium Chloride (Potassium Chloride 20 Meq Tablet) 40 meq PO UD PRN PRN Reason: Potssium is 3-3.5 Potassium Chloride (Potassium Chloride 20 Meq Tablet) 40 meq PO UD PRN PRN Reason: Potassium < 3 Rizatriptan Benzoate (Rizatriptan 10 Mg Tablet) 10 mg PO DAILYP PRN PRN Reason: migraines Senna (Sennosides 1 Tablet) 2 tab PO DAILYP PRN PRN Reason: Constipation Sodium Chloride (0.9 % Sodium Chloride 10 Ml Syringe) 10 ml IV Q8 [facility] Last Admin: 03/18/21 05:47 Dose: Not Given Documented by: Topiramate (Topiramate 25 Mg Tablet) 25 mg PO QDAY [facility] Last Admin: 03/17/21 09:56 Dose: 25 mg Documented by: A/P Narrative A/P Narrative: A: *Left foot/toe diabetic wound infection/cellulitis/abscess: I&D today (03/18) -WC w/GNB *DM w/neuropathy: *Anemia, chronic *HTN/HLD: *Depression/anxiety: *Adrenal insufficiency: cont home hydrocortisone *Obesity: P: -Dr. Mahajan podiatry for I&D -Antibiotics, pending BC/WC, MRSA screen neg -wound care -SSI -Continue home BP meds, psych meds, hydrocortisone -PT/OT -ppx: heparin Time Spent With Patient Time: Total time spent is greater than 50% in coordination of care (as documented) at patient's floor/unit and/or counseling patient:
[2021-03-18] MEDS ORDERED: KETOROLAC 30 MG/ML VIAL IV ONE (08:31)
[2021-03-18] MEDS: HYDROCORTISONE 10 MG TABLET PO SCH ×2 (08:39→17:38)
[2021-03-18] MEDS ORDERED: SCOPOLAMINE 1 PATCH PATCH TOPICAL PRN (09:19)
[2021-03-18] MEDS: OLMESARTAN MEDOXOMIL 20 MG TABLET PO SCH ×2 (09:43→14:06)
[2021-03-18] MEDS: DULoxetine 30 MG CAPSULE PO SCH ×2 (09:43→21:31)
[2021-03-18] MEDS: DOCUSATE SODIUM 100 MG CAPSULE PO SCH ×2 (09:43→21:41)
[2021-03-18] MEDS: MAGNESIUM OXIDE 400 MG TABLET PO SCH ×2 (09:44→14:05)
[2021-03-18] MEDS: HYDROCHLOROTHIAZIDE 12.5 MG CAPSULE PO SCH ×2 (09:44→14:05)
[2021-03-18] MEDS: ATORVASTATIN 40 MG TABLET PO SCH ×2 (09:44→14:05)
[2021-03-18] MEDS: GABAPENTIN 400 MG CAPSULE PO SCH ×5 (09:44→21:31)
[2021-03-18] MEDS: BACLOFEN 10 MG TABLET PO SCH ×3 (09:44→21:30)
[2021-03-18] MEDS: BUPRENORPHINE HCL 2 MG TAB.SUBL SL SCH ×3 (09:45→21:30)
[2021-03-18] MEDS: TOPIRAMATE 25 MG TABLET PO SCH ×2 (09:45→14:06)
[2021-03-18] MEDS: HEPARIN 5,000 UNIT/ML VIAL SQ SCH ×2 (09:46→21:32)
[2021-03-18] MEDS ORDERED: FLU VACC QS2021-22(6MOS UP)/PF 60 MCG/0.5 ML SYRINGE IM ONE (10:00)
[2021-03-18] MEDS ORDERED: BUPIVACAINE 0.5% 50 ML VIAL IJ ONE (12:45)
[2021-03-18] MEDS ORDERED: VANCOMYCIN 1 GM VIAL TOPICAL ONE (13:00)
--- NOTE | 2021-03-18 13:34 | Brief Operative Note ---
Brief Operative Note Date of procedure: 03/18/21 Pre-op diagnosis: Osteomyelitis of the left Medial sesamoid, cellulitis left f oot Post-op diagnosis: same Procedure: Removal of left medial sesamoid bone, incision and drainage left foot Grafts/Implants: No Anesthesia: MAC and local Complications: none Surgeon: Alex Mahajan Estimated blood loss (cc): 50 Tourniquet Time (Minutes): 10 Specimens Removed/Pathology: other (Bone culture, deep soft tissue swab) Condition: stable Disposition: floor
--- NOTE | 2021-03-18 13:50 | Operative Note ---
DATE OF OPERATION: 03/18/2021 PREOPERATIVE DIAGNOSES: 1. Osteomyelitis of the left medial sesamoid bone. 2. Cellulitis, left foot. POSTOPERATIVE DIAGNOSES: 1. Osteomyelitis of the left medial sesamoid bone. 2. Cellulitis, left foot. PROCEDURE: 1. Removal of left medial sesamoid bone. 2. Incision and drainage, left foot. SURGEON: Alex Mahajan DPM. IMPLANTS: None. ANESTHESIA: MAC, local. COMPLICATIONS: None. BLOOD LOSS: 50 mL. TOURNIQUET TIME: 10 minutes. SPECIMENS: Bone culture, deep soft tissue swab of left foot. POSTOPERATIVE CONDITION: Stable. DISPOSITION: Floor. PROCEDURE IN DETAIL: The patient was brought to the operating room and remained in the hospital bed throughout the procedure. She was brought under monitored anesthesia care anesthesia, and there was a proximal Hendrix block of 10 mL of 0.5% Marcaine plain infiltrated proximal to the tibial sesamoid region of the first metatarsal. Procedure 1: Removal of left medial sesamoid bone. A 2.5 cm incision was used to remove the tibial sesamoid bone, which was done after accessing the joint capsule which was transected in a linear fashion. Following removal of the bone, it was passed for culture and the tissue was debrided and irrigated. Closure was performed with 4-0 Vicryl and 4-0 Prolene in a horizontal interrupted suture fashion. Procedure 2: Incision and drainage, left foot. There was an abscess on the dorsal medial aspect of the patient's left foot. This was opened and freed open. Copious amounts of sterile saline was used to irrigate this area and vancomycin packing was performed with 1 gram vancomycin powder. This area was left open. The patient tolerated the procedure and anesthesia well. Area was dressed with Xeroform, 4 x 4 gauze, Kerlix, and Colin wrap. She was transferred to the postoperative care unit with vital signs stable and the vascular status intact to her foot. She will be transferred to the floor here at the hospital for continued antibiotic therapy. [id number] Job ID: [id number] Doc ID: [id number] Alex Mahajan DPM
--- NOTE | 2021-03-18 16:54 | XRay Report ---
CLINICAL INFORMATION: post op. Foot infection presumably debridement. COMPARISON: 03/12/2021 FINDINGS: No evidence of osteomyelitis. 4-5 and regular osseous fragments overlie the first metatarsal sesamoid and lateral view. Nature of this is unknown. Mild degenerative change seen in the second through fifth interphalangeal joints. There is diffuse forefoot and midfoot soft tissue swelling-more prominent over the first MTP joint. IMPRESSION: Diffuse forefoot and midfoot soft tissue swelling presumably edema or cellulitis. No radiographic evidence for osteomyelitis Interpreted and Authenticated by: Farshad Castro 03/18/21
[2021-03-18] MEDS: HYDROcodone/APAP 10/325MG TABLET PO PRN (21:30)
[2021-03-19] MEDS: PIPERACILLIN SODIUM/TAZOBACTAM 3.375 GM in DEXTROSE 5% IN WATER 50 ML IV SCH ×2 (05:14→11:15)
[2021-03-19] MEDS: 0.9 % SODIUM CHLORIDE 10 ML SYRINGE IV SCH ×4 (05:15→12:23)
[2021-03-19] MEDS: INSULIN LISPRO 1 UNIT/0.01 ML UNIT SQ SCH ×2 (07:05→11:14)
[2021-03-19] MEDS: HYDROCORTISONE 10 MG TABLET PO SCH (07:28)
--- NOTE | 2021-03-19 08:04 | Internal Med Progress Note ---
SUBJECTIVE Subjective Patient information: Note initiated : 03/19/21 at 8:01 am Service Date, if different from initiated Date: [] Patient: Amber Weiss 56 y/o F admitted on 03/16/21 for Foot Infection. Chief Complaint: [] Interval history: History of present illness: Ms. Weiss is a 56 year old F Presents from Dr. Mahajan's office for left foot toe cellulitis with pustular drainage redness swelling tenderness. Patient failed outpatient antibiotics and also will likely need surgical I&D. Was on doxycycline outpatient. 03/17 No change overnight. Seen by Dr. Mahajan who performed surgical I&D tomorrow. 03/18 No overnight event or new complaints. Awaiting surgical I&D today. 03/19 No overnight or new complaints. Had surgical I&D yesterday. Awaiting cultures. Review of Systems: denies headache/fever/chills/nausea/vomiting/chest or abdominal pain/cough/dyspnea/diarrhea. Otherwise see above. Constitutional Vitals: Vital Signs Temp Pulse Resp BP Pulse Ox 97.6 F 68 16 114/65 94 03/19/21 03:52 03/19/21 03:52 03/19/21 07:06 03/19/21 03:52 03/19/21 07:06 Period Temp Pulse Resp BP Sys/Schultz Pulse Ox Last 24 Hr 97.4 F-98.5 F 68-81 16-22 98-144/48-89 94-99 Intake and Output 03/18/21 03/19/21 03/19/21 21:59 05:59 13:59 Intake Total 600 100 Output Total 0 Balance 600 100 Weight 174.633 kg Intake & Output: Intake & Output 03/18/21 03/19/21 03/19/21 21:59 05:59 13:59 Intake Total 600 100 Output Total 0 Balance 600 100 Weight 174.633 kg Intake: IV 50 100 Zosyn 3.375 gm In Dextrose 5% 50 100 in Water 50 ml @ 100 mls/hr IV Q6H [facility] Rx#:[id number] Oral 550 0 Output: Void Amount 0 Other: Meal Lunch Percent of Meal Consumed 100% Feeding Ability Independent Urine Appearance Clear Urine Color Pale Urine Odor Normal Exam: General: Alert, Awake, No acute Distress, obese Eyes/N/T: EOMI, Head/Neck: neck supple, CV: RRR, No murmurs, Pulm: Clear b/l, no wheezing/rhonchi/rales Abd: soft, nontender, +BS x4 Ext: no clubbing/cyanosis, b/l LE edma R>L, foot in dressings Neuro: Alert, no focal deficits, moves all extremities, decreased lower extremities chronically Skin: warm/dry OBJ DATA Labs CBC & Chem 7: 03/17/21 05:24 03/17/21 05:24 Labs: Abnormal Lab Results 03/17/21 03/17/21 03/16/21 05:24 05:24 12:10 Hgb 9.9 L Hct 31.5 L MCHC RDW 16.1 H Neut % (Auto) 79.7 H Lymph % (Auto) 15.2 L Lymph # (Auto) 1.32 L ESR BUN 26 H 22 H Glucose 129 H GGT 40 H 03/16/21 12:10 Hgb 10.5 L Hct MCHC 30.5 L RDW 16.4 H Neut % (Auto) Lymph % (Auto) Lymph # (Auto) ESR 52 H BUN Glucose GGT Meds: Medications Acetaminophen (Acetaminophen 325 Mg Tablet) 650 mg PO Q6HP PRN; Protocol PRN Reason: Per Pain Protocol/Fever > 101 Hydrocodone Bitart/Acetaminophen (Hydrocodone/Apap 10/325mg Tablet) 1 tab PO BIDP PRN; Protocol PRN Reason: Pain Last Admin: 03/18/21 21:30 Dose: 1 tab Documented by: Albuterol/Ipratropium (Ipratropium/Albuterol 3 Ml Ampul.Neb) 3 ml NEB Q4HP PRN PRN Reason: Shortness Of Breath Atorvastatin Calcium (Atorvastatin 40 Mg Tablet) 40 mg PO QDAY [facility] Last Admin: 03/18/21 14:05 Dose: 40 mg Documented by: Baclofen (Baclofen 10 Mg Tablet) 10 mg PO TID [facility] Last Admin: 03/18/21 21:30 Dose: 10 mg Documented by: Buprenorphine HCl (Buprenorphine Hcl 2 Mg Tab.Subl) 2 mg SL TID [facility] Last Admin: 03/18/21 21:30 Dose: 2 mg Documented by: Dextrose (Dextrose 50% 50 Ml Vial) 0 ml IV UD PRN PRN Reason: Hypoglycemia Diagnostic Test (Pha) (Accu-Chek 1 Each Strip) 1 each FS ACHS [facility] Last Admin: 03/19/21 07:05 Dose: 1 each Documented by: Docusate Sodium (Docusate Sodium 100 Mg Capsule) 100 mg PO BID [facility] Last Admin: 03/18/21 21:41 Dose: Not Given Documented by: Duloxetine HCl (Duloxetine 30 Mg Capsule) 60 mg PO BID [facility] Last Admin: 03/18/21 21:31 Dose: 60 mg Documented by: Gabapentin (Gabapentin 400 Mg Capsule) 800 mg PO QID [facility] Last Admin: 03/18/21 21:31 Dose: 800 mg Documented by: Glucose (Dextrose 31 Gm Oral.Susp) 15 gm PO PRN PRN PRN Reason: Hypoglycemia Heparin Sodium (Porcine) (Heparin 5,000 Unit/Ml Vial) 5,000 unit SQ Q12 [facility] Last Admin: 03/18/21 21:32 Dose: 5,000 unit Documented by: Hydrochlorothiazide (Hydrochlorothiazide 12.5 Mg Capsule) 12.5 mg PO DAILY [facility] Last Admin: 03/18/21 14:05 Dose: 12.5 mg Documented by: Hydrocortisone (Hydrocortisone 10 Mg Tablet) 10 mg PO QAC [facility] Last Admin: 03/19/21 07:28 Dose: 10 mg Documented by: Hydrocortisone (Hydrocortisone 10 Mg Tablet) 5 mg PO QPMCC [facility] Last Admin: 03/18/21 17:38 Dose: 5 mg Documented by: Potassium Chloride 40 meq/ (Dextrose) 520 mls @ 130 mls/hr IV UD PRN PRN Reason: Potassium < 3 Magnesium Sulfate (Magnesium Sulfate) 2 gm in 50 mls @ 50 mls/hr IV UD PRN PRN Reason: Magnesium </= 1.6 Piperacillin Sod/Tazobactam (Sod 3.375 gm/ Dextrose) 50 mls @ 100 mls/hr IV Q6H [facility]; Protocol Last Infusion: 03/19/21 05:45 Dose: Infused Documented by: Insulin Human Lispro (Insulin Lispro 1 Unit/0.01 Ml Unit) 0 unit SQ [facility]; Protocol Last Admin: 03/19/21 07:05 Dose: Not Given Documented by: Magnesium Oxide (Magnesium Oxide 400 Mg Tablet) 400 mg PO DAILY [facility] Last Admin: 03/18/21 14:05 Dose: 400 mg Documented by: Morphine Sulfate (Morphine 4 Mg/Ml Vial) 0 mg IV Q3HP PRN PRN Reason: Pain Last Admin: 03/16/21 23:50 Dose: 4 mg Documented by: Olmesartan (Olmesartan Medoxomil 20 Mg Tablet) 40 mg PO DAILY [facility] Last Admin: 03/18/21 14:06 Dose: 40 mg Documented by: Ondansetron HCl (Ondansetron 4 Mg/2 Ml Vial) 4 mg IV Q4HP PRN PRN Reason: Nausea And Vomiting Polyethylene Glycol (Polyethylene Glycol 3350 17 Gm Packet) 17 gm PO DAILYP PRN PRN Reason: Constipation Potassium Chloride (Potassium Chloride 20 Meq Tablet) 40 meq PO UD PRN PRN Reason: Potssium is 3-3.5 Potassium Chloride (Potassium Chloride 20 Meq Tablet) 40 meq PO UD PRN PRN Reason: Potassium < 3 Rizatriptan Benzoate (Rizatriptan 10 Mg Tablet) 10 mg PO DAILYP PRN PRN Reason: migraines Senna (Sennosides 1 Tablet) 2 tab PO DAILYP PRN PRN Reason: Constipation Sodium Chloride (0.9 % Sodium Chloride 10 Ml Syringe) 10 ml IV Q8 [facility] Last Admin: 03/19/21 05:15 Dose: 10 ml Documented by: Sodium Chloride (0.9 % Sodium Chloride 10 Ml Syringe) 10 ml IV Q8 [facility] Last Admin: 03/19/21 05:15 Dose: 10 ml Documented by: Topiramate (Topiramate 25 Mg Tablet) 25 mg PO QDAY [facility] Last Admin: 03/18/21 14:06 Dose: 25 mg Documented by: A/P Narrative A/P Narrative: A: *Left foot/toe diabetic wound infection/cellulitis/abscess: s/p I&D (03/18) -WC w/Enterobacter on superficial cxs *DM w/neuropathy: *Anemia, chronic *HTN/HLD: *Depression/anxiety: *Adrenal insufficiency: cont home hydrocortisone *Obesity: P: -Dr. Mahajan podiatry -Antibiotics, pending surgical cx's, MRSA screen neg -wound care -[facility] -Continue home BP meds, psych meds, hydrocortisone -PT/OT -ppx: heparin Time Spent With Patient Time: Total time spent is greater than 50% in coordination of care (as documented) at patient's floor/unit and/or counseling patient:
[2021-03-19] MEDS: ATORVASTATIN 40 MG TABLET PO SCH (08:15)
[2021-03-19] MEDS: BUPRENORPHINE HCL 2 MG TAB.SUBL SL SCH (08:15)
[2021-03-19] MEDS: GABAPENTIN 400 MG CAPSULE PO SCH ×2 (08:15→12:38)
[2021-03-19] MEDS: HEPARIN 5,000 UNIT/ML VIAL SQ SCH (08:16)
[2021-03-19] MEDS: TOPIRAMATE 25 MG TABLET PO SCH (08:16)
[2021-03-19] MEDS: DULoxetine 30 MG CAPSULE PO SCH (08:16)
[2021-03-19] MEDS: BACLOFEN 10 MG TABLET PO SCH (08:16)
[2021-03-19] MEDS: HYDROCHLOROTHIAZIDE 12.5 MG CAPSULE PO SCH (08:16)
[2021-03-19] MEDS: DOCUSATE SODIUM 100 MG CAPSULE PO SCH (08:16)
[2021-03-19] MEDS: OLMESARTAN MEDOXOMIL 20 MG TABLET PO SCH (08:16)
[2021-03-19] MEDS: MAGNESIUM OXIDE 400 MG TABLET PO SCH (08:16)
--- NOTE | 2021-03-19 10:29 | Discharge Summary ---
Discharge Provider Provider Patient information: Note initiated : 03/19/21 at 10:28 am Service Date, if different from initiated Date: [] Patient: Amber Weiss 56 y/o F admitted on 03/16/21 for Foot Infection. Chief Complaint: [] Date of admission: 03/16/21 14:35 Discharge date: 03/19/21 Primary care physician: BENNY Manzo Consults: 03/16/21 Consult to Physician [CONS] Stat Comment: Consulting Provider: Alex Mahajan Reason For Exam: Physician to Consult 03/16/21 13:41 Consult to Physician [CONS] Stat Comment: Consulting Provider: Buck Stanley Reason For Exam: Physician to Consult Discharge Meds Discharge Medications Home Medications gabapentin 800 mg tablet 800 mg PO Q4 tab 08/07/15 [History Confirmed 03/16/21 Last Taken 09/17/20 06:00] hydrocodone 10 mg-acetaminophen 325 mg tablet 1 tab PO PRN PRN 08/07/15 [History Confirmed 03/16/21 Last Taken 09/16/20] duloxetine 60 mg capsule,delayed release (Cymbalta) 60 mg PO BID cap 10/02/15 [History Confirmed 03/16/21 Last Taken 09/17/20 06:00] hydrocortisone 5 mg tablet 10 mg PO .COMPLEX 01/08/16 [History Confirmed 03/16/21 Last Taken 09/17/20 06:00] cholecalciferol (vitamin D3) 125 mcg (5,000 unit) capsule 5,000 unit PO QDAY cap 07/08/16 [History Confirmed 03/16/21 Last Taken 09/16/20] metformin 1,000 mg 24 hr tablet,extended release 1,000 mg PO BID #120 tab 11/08/17 [Rx Confirmed 03/16/21 Last Taken 09/16/20 18:00] atorvastatin 40 mg tablet 40 mg PO QDAY 03/22/19 [History Confirmed 03/16/21 Last Taken 09/16/20] glipizide 2.5 mg tablet, extended release 24 hr 10 mg PO BID tab 03/22/19 [History Confirmed 03/16/21 Last Taken 09/17/20 06:00] baclofen 10 mg tablet 10 mg PO TID 09/02/20 [History Confirmed 03/16/21 Last Taken 09/16/20] buprenorphine HCl 2 mg sublingual tablet 2 mg SUBLINGUAL TID 09/02/20 [History Confirmed 03/16/21 Last Taken 09/17/20] pioglitazone 30 mg tablet 30 mg PO QDAY 09/17/20 [History Confirmed 03/16/21 Last Taken 09/16/20 17:00] valsartan 320 mg-hydrochlorothiazide 12.5 mg tablet 1 tab PO 1200 09/17/20 [History Confirmed 03/16/21 Last Taken 09/16/20 12:00] cyanocobalamin (vitamin B-12) 1,000 mcg sublingual tablet 2,000 mcg SUBLINGUAL QDAY 03/09/21 [History Confirmed 03/16/21 Last Taken Unknown] magnesium oxide 400 mg PO QDAY 03/09/21 [History Confirmed 03/16/21 Last Taken Unknown] pyridoxine (vitamin B6) 100 mg tablet (Vitamin B-6) 100 mg PO QDAY 03/09/21 [History Confirmed 03/16/21 Last Taken Unknown] rizatriptan 10 mg tablet (Maxalt) 10 mg PO PRN PRN 03/09/21 [History Confirmed 03/16/21 Last Taken Unknown] topiramate 25 mg tablet 25 mg PO QDAY 03/09/21 [History Confirmed 03/16/21 Last Taken Unknown] vitamin E 400 unit capsule 400 unit PO QDAY 03/09/21 [History Confirmed 03/16/21 Last Taken Unknown] levofloxacin 750 mg tablet 750 mg PO Q24H #13 tab 03/19/21 [Rx Last Taken Unknown] COURSE Hospital Course Hospital course: History of present illness: Ms. Weiss is a 56 year old F Presents from Dr. Mahajan's office for left foot toe cellulitis with pustular drainage redness swelling tenderness. Patient failed outpatient antibiotics and also will likely need surgical I&D. Was on doxycycline outpatient. 03/17 No change overnight. Seen by Dr. Mahajan who performed surgical I&D tomorrow. 03/18 No overnight event or new complaints. Awaiting surgical I&D today. 03/19 No overnight or new complaints. Had surgical I&D yesterday. Awaiting cultures. A: *Left foot/toe diabetic wound infection/cellulitis/abscess: s/p I&D (03/18) -WC w/Enterobacteron superficial cxs *DM w/neuropathy: *Anemia, chronic *HTN/HLD: *Depression/anxiety: *Adrenal insufficiency: cont home hydrocortisone *Obesity: Discharge diagnosis: Left foot toe diabetic wound infection cellulitis and abscess Secondary discharge diagnosis: Diabetes neuropathy anemia hypertension hyperlipidemia depression anxiety adrenal insufficiency obesity Time Spent with Patient Time attestation: Total time spent providing and/or coordinating discharge services: EXAM Constitutional Vitals: Temp Pulse Resp BP Pulse Ox 96.7 F L 71 16 123/67 94 03/19/21 07:00 03/19/21 07:00 03/19/21 07:06 03/19/21 07:00 03/19/21 07:06 Discharge Data Data Completed and Pending Labs on day of discharge: Preliminary micro results at discharge 03/16/21 12:17 Blood Culture - Preliminary Blood 03/16/21 12:10 Blood Culture - Preliminary Blood Discharge Plan Patient/Caregiver Discharge Instructions Activity: increase activity as tolerated Diet: Consistent Carbohydrate Prescriptions: New levofloxacin 750 mg tablet 750 mg PO Q24H Qty: 13 0RF Continued hydrocortisone 5 mg tablet 10 mg PO .COMPLEX 0RF Label Comments: 10mg QAM, 5mg QPM Rx Instructions: 10mg QAM, 5mg QPM hydrocodone-acetaminophen 10-325 mg tablet 1 tab PO PRN PRN (Reason: Pain) 0RF Label Comments: Prescribed by Dr. Thompson in [facility] gabapentin 800 mg tablet 800 mg PO Q4 0RF duloxetine [Cymbalta] 60 mg capsule,delayed release(/EC) 60 mg PO BID 0RF metformin 1,000 mg tablet,ER lorri.retention 24 hr 1,000 mg PO BID Qty: 120 3RF Rx Instructions: administer with meal cholecalciferol (vitamin D3) 5,000 unit capsule 5,000 unit PO QDAY 0RF glipizide 2.5 mg tablet extended release 24hr 10 mg PO BID 0RF atorvastatin 40 mg tablet 40 mg PO QDAY 0RF buprenorphine HCl 2 mg tablet, sublingual 2 mg SUBLINGUAL TID 0RF baclofen 10 mg tablet 10 mg PO TID 0RF pioglitazone 30 mg Tablet 30 mg PO QDAY 0RF valsartan-hydrochlorothiazide 320-12.5 mg tablet 1 tab PO 1200 0RF Rx Instructions: 320/12.5mg rizatriptan [Maxalt] 10 mg Tablet 10 mg PO PRN PRN (Reason: migraines) 0RF topiramate 25 mg Tablet 25 mg PO QDAY 0RF cyanocobalamin (vitamin B-12) 1,000 mcg Tablet, Sublingual 2,000 mcg SUBLINGUAL QDAY 0RF pyridoxine (vitamin B6) [Vitamin B-6] 100 mg Tablet 100 mg PO QDAY 0RF vitamin E 400 unit Capsule 400 unit PO QDAY 0RF magnesium oxide 400 mg magnesium Tablet 400 mg PO QDAY 0RF Discontinued ibuprofen 200 mg capsule 600 mg PO QID 0RF doxycycline monohydrate 100 mg tablet 100 mg PO BID Qty: 14 0RF Follow Up Plan Follow up with: Deborah Oneal FNP [Primary Care Provider] - Alex Mahajan DPM [Physician] - Patient Disposition: Home, Self-Care Prognosis: Fair Overall status at discharge: patient is progressing back to baseline Discharge Orders: Discharge Order (Routine); Ordered 03/19/21 Ordered By: Buck Stanley
[2021-03-19] MEDS ORDERED: LEVOFLOXACIN 750 MG/150 ML BAG IV ONE (11:00)
[2021-03-19] MEDS ORDERED: LEVOFLOXACIN 750 MG TABLET PO ONE (11:12)
== END 2021-03-19 13:00 | disposition home or self-care (01) | DRG 629 ==
LOC: ED 10:41 → MEDSUR 14:35
PROVIDERS: ADMIT Internal Medicine; ATTEND Internal Medicine

== ENCOUNTER 2024-12-21 09:57 | Inpatient (IN) ==
[2024-12-21] MEDS ORDERED: IOPAMIDOL 100 ML BOTTLE IV ONE (09:58)
[2024-12-21 11:18] LABS: Basophils # (Auto) 0.05 K/mcL (0.00-0.30); Basophils % (Auto) 0.4 % (0.0-2.0); Eosinophils # (Auto) 0.10 K/mcL (0.00-0.70); Eosinophils % (Auto) 0.9 % (0.0-7.0); Hematocrit 39.6 % (34.1-44.9); Hemoglobin 12.4 g/dL (11.2-15.7); Lymphocytes # (Auto) 1.64 K/mcL (1.50-4.80); Lymphocytes % (Auto) 14.5 % (15.5-49.0); Mean Corpuscular HGB Conc 31.3 g/dL (31.0-36.0); Monocytes # (Auto) 1.23 K/mcL (0.10-0.90); Monocytes % (Auto) 10.9 % (1.0-12.0); Neutrophils % (Auto) 73.1 % (38.0-78.0); Platelet Count 300 K/mcL (140-440); RBC 4.47 M/mcL (3.59-5.38); WBC 11.3 K/mcL (4.5-11.0)
[2024-12-21 11:35] LABS: INR 1.0 (0.9-1.1); Partial Thromboplastin Time 26.8 sec (20.0-37.0); Prothrombin Time 14.1 sec (11.9-14.5)
[2024-12-21 11:38] LABS: ALT/SGPT 21 U/L (<40); AST/SGOT 19 U/L (<32); Albumin 4.0 gm/dL (3.2-5.2); Albumin/Globulin Ratio 1.3 (1.0-2.3); Alkaline Phosphatase 89 U/L (39-117); Anion Gap 12.0 (8.0-16.0); Bilirubin,Total 0.4 mg/dL (0.1-1.0); Blood Urea Nitrogen 20 mg/dL (8-23); Calcium 9.4 mg/dL (8.6-10.4); Carbon Dioxide 27 mmol/L (22-30); Chloride 98 mmol/L (96-108); Globulin 3.1 gm/dL (2.2-3.7); Glucose 119 mg/dL (70-105); Potassium 4.1 mmol/L (3.3-5.1); Sodium 137 mmol/L (133-145)
[2024-12-21] MEDS: PIPERACILLIN SODIUM/TAZOBACTAM 3.375 GM in DEXTROSE 5% IN WATER 50 ML IV ONE (11:48)
[2024-12-21 13:08] LABS: Bacteria,Urine Few /hpf (0); Bilirubin,Urine Negative (Negative); Color,Urine Yellow; Glucose,Urine (UA) Negative (Negative); Ketones,Urine Negative (Negative); Leukocyte Esterase,Urine Negative /uL (Negative); Mucus,Urine Few /hpf; PH,Urine 5.5 (5.0-9.0); Protein,Urine Trace mg/dL (Negative); Specific Gravity,Urine 1.015 (1.000-1.035); Urine Amorphous Crystals Few /hpf; Urobilinogen,Urine Normal
[2024-12-21] MEDS: VANCOMYCIN 1,500 MG in 0.9 % SODIUM CHLORIDE 500 ML IV ONE (14:08)
[2024-12-21] MEDS ORDERED: POLYETHYLENE GLYCOL 3350 17 GM PACKET PO PRN (16:05)
[2024-12-21] MEDS ORDERED: RIZATRIPTAN 10 MG PO PRN (16:05)
[2024-12-21] MEDS ORDERED: DEXTROSE 31 GM ORAL.SUSP PO PRN (16:05)
[2024-12-21] MEDS ORDERED: HYDROCORTISONE 5 MG PO SCH (16:05)
[2024-12-21] MEDS ORDERED: DEXTROSE 50% 50 ML VIAL IV PRN (16:05)
[2024-12-21] MEDS ORDERED: SENNOSIDES 1 TABLET PO PRN (16:05)
[2024-12-21] MEDS ORDERED: VANCOMYCIN PER PHARMACY IV SCH (16:15)
[2024-12-21] MEDS: VANCOMYCIN PER PHARMACY IV ONE (17:34)
[2024-12-21] MEDS: CEFEPIME 2 GM VIAL IV SCH (17:58)
[2024-12-21] MEDS: metroNIDAZOLE 500 MG/100 ML BAG IV SCH (17:59)
[2024-12-21] MEDS: INSULIN LISPRO 1 UNIT/0.01 ML UNIT SQ SCH (17:59)
[2024-12-21] MEDS: MELATONIN 3 MG TABLET PO SCH (21:43)
[2024-12-21] MEDS: HEPARIN 5,000 UNIT/ML VIAL SQ SCH (21:44)
[2024-12-21] MEDS: 0.9 % SODIUM CHLORIDE 10 ML SYRINGE IV SCH (21:45)
[2024-12-22] MEDS: VANCOMYCIN 1,750 MG in 0.9 % SODIUM CHLORIDE 500 ML IV SCH (00:09)
[2024-12-22] MEDS: ACETAMINOPHEN 325 MG TABLET PO PRN (02:37)
[2024-12-22 06:18] LABS: Basophils # (Auto) 0.03 K/mcL (0.00-0.30); Basophils % (Auto) 0.3 % (0.0-2.0); Eosinophils # (Auto) 0.10 K/mcL (0.00-0.70); Eosinophils % (Auto) 1.1 % (0.0-7.0); Hematocrit 39.0 % (34.1-44.9); Hemoglobin 12.3 g/dL (11.2-15.7); Lymphocytes # (Auto) 1.64 K/mcL (1.50-4.80); Lymphocytes % (Auto) 17.7 % (15.5-49.0); Mean Corpuscular HGB Conc 31.5 g/dL (31.0-36.0); Monocytes # (Auto) 0.89 K/mcL (0.10-0.90); Monocytes % (Auto) 9.6 % (1.0-12.0); Neutrophils % (Auto) 71.0 % (38.0-78.0); Platelet Count 300 K/mcL (140-440); RBC 4.39 M/mcL (3.59-5.38); WBC 9.3 K/mcL (4.5-11.0)
[2024-12-22 06:33] LABS: Anion Gap 14.0 (8.0-16.0); Blood Urea Nitrogen 18 mg/dL (8-23); C-Reactive Protein 8.08 mg/dL (0.03-0.80); Calcium 9.3 mg/dL (8.6-10.4); Carbon Dioxide 25 mmol/L (22-30); Chloride 98 mmol/L (96-108); Glucose 179 mg/dL (70-105); Potassium 3.8 mmol/L (3.3-5.1); Sodium 137 mmol/L (133-145)
[2024-12-22] MEDS: ONDANSETRON 4 MG/2 ML VIAL IV PRN (06:48)
[2024-12-22] MEDS: HYDROCORTISONE 10 MG TABLET PO SCH ×2 (08:59→17:02)
[2024-12-22] MEDS ORDERED: SIMETHICONE 80 MG TAB.CHEW CHEWED PRN (10:31)
[2024-12-22] MEDS: HYDROCHLOROTHIAZIDE 12.5 MG CAPSULE PO SCH (12:06)
[2024-12-22] MEDS: OLMESARTAN MEDOXOMIL 20 MG TABLET PO SCH (12:06)
[2024-12-22] MEDS: BACLOFEN 10 MG TABLET PO SCH (13:20)
[2024-12-22] MEDS: GABAPENTIN 400 MG CAPSULE PO SCH (13:20)
[2024-12-22] MEDS: ATORVASTATIN 40 MG TABLET PO SCH (20:29)
[2024-12-23 05:51] LABS: Basophils # (Auto) 0.03 K/mcL (0.00-0.30); Basophils % (Auto) 0.4 % (0.0-2.0); Eosinophils # (Auto) 0.15 K/mcL (0.00-0.70); Eosinophils % (Auto) 1.9 % (0.0-7.0); Hematocrit 35.4 % (34.1-44.9); Hemoglobin 11.1 g/dL (11.2-15.7); Lymphocytes # (Auto) 1.35 K/mcL (1.50-4.80); Lymphocytes % (Auto) 16.7 % (15.5-49.0); Mean Corpuscular HGB Conc 31.4 g/dL (31.0-36.0); Monocytes # (Auto) 0.76 K/mcL (0.10-0.90); Monocytes % (Auto) 9.4 % (1.0-12.0); Neutrophils % (Auto) 71.5 % (38.0-78.0); Platelet Count 262 K/mcL (140-440); RBC 3.96 M/mcL (3.59-5.38); WBC 8.1 K/mcL (4.5-11.0)
[2024-12-23 06:13] LABS: C-Reactive Protein 5.71 mg/dL (0.03-0.80)
[2024-12-23 06:22] LABS: Anion Gap 10.0 (8.0-16.0); Blood Urea Nitrogen 12 mg/dL (8-23); Calcium 8.9 mg/dL (8.6-10.4); Carbon Dioxide 27 mmol/L (22-30); Chloride 102 mmol/L (96-108); Glucose 185 mg/dL (70-105); Potassium 3.8 mmol/L (3.3-5.1); Sodium 139 mmol/L (133-145)
[2024-12-23] MEDS: TOPIRAMATE 25 MG TABLET PO SCH (08:51)
[2024-12-23] MEDS ORDERED: TRAMADOL 200 MG PO SCH (09:00)
[2024-12-23] MEDS: VANCOMYCIN 2,000 MG in 0.9 % SODIUM CHLORIDE 500 ML IV SCH (15:04)
[2024-12-24 06:25] LABS: Basophils # (Auto) 0.03 K/mcL (0.00-0.30); Basophils % (Auto) 0.4 % (0.0-2.0); Eosinophils # (Auto) 0.21 K/mcL (0.00-0.70); Eosinophils % (Auto) 3.0 % (0.0-7.0); Hematocrit 36.0 % (34.1-44.9); Hemoglobin 11.2 g/dL (11.2-15.7); Lymphocytes # (Auto) 1.70 K/mcL (1.50-4.80); Lymphocytes % (Auto) 24.3 % (15.5-49.0); Mean Corpuscular HGB Conc 31.1 g/dL (31.0-36.0); Monocytes # (Auto) 0.47 K/mcL (0.10-0.90); Monocytes % (Auto) 6.7 % (1.0-12.0); Neutrophils % (Auto) 65.2 % (38.0-78.0); Platelet Count 290 K/mcL (140-440); RBC 4.01 M/mcL (3.59-5.38); WBC 7.0 K/mcL (4.5-11.0)
[2024-12-24 06:40] LABS: Anion Gap 10.0 (8.0-16.0); Blood Urea Nitrogen 14 mg/dL (8-23); C-Reactive Protein 4.31 mg/dL (0.03-0.80); Calcium 9.2 mg/dL (8.6-10.4); Carbon Dioxide 28 mmol/L (22-30); Chloride 102 mmol/L (96-108); Glucose 167 mg/dL (70-105); Potassium 4.0 mmol/L (3.3-5.1); Sodium 140 mmol/L (133-145)
[2024-12-24 12:10] VITALS: TEMP 97.8; O2SAT 96
[2024-12-24] MEDS ORDERED: AMOXICILLIN/POTASSIUM CLAV 875 MG TABLET PO SCH (17:30)
== END 2024-12-24 15:50 | disposition home or self-care (01) | DRG 638 ==
LOC: ED 09:57 → MEDSUR 16:05
PROVIDERS: ADMIT Student in an Organized Health Care Education/Training Program; ATTEND Student in an Organized Health Care Education/Training Program

== ENCOUNTER 2025-02-04 11:04 | Inpatient (IN) ==
[2025-02-04] MEDS ORDERED: VANCOMYCIN PER PHARMACY IV SCH ×2 (12:00→16:07)
[2025-02-04 12:37] LABS: Basophils # (Auto) 0.05 K/mcL (0.00-0.30); Basophils % (Auto) 0.7 % (0.0-2.0); Eosinophils # (Auto) 0.22 K/mcL (0.00-0.70); Eosinophils % (Auto) 2.9 % (0.0-7.0); Hematocrit 38.0 % (34.1-44.9); Hemoglobin 11.6 g/dL (11.2-15.7); Lymphocytes # (Auto) 1.79 K/mcL (1.50-4.80); Lymphocytes % (Auto) 23.5 % (15.5-49.0); Mean Corpuscular HGB Conc 30.5 g/dL (31.0-36.0); Monocytes # (Auto) 0.53 K/mcL (0.10-0.90); Monocytes % (Auto) 7.0 % (1.0-12.0); Neutrophils % (Auto) 65.6 % (38.0-78.0); Platelet Count 295 K/mcL (140-440); RBC 4.19 M/mcL (3.59-5.38); WBC 7.6 K/mcL (4.5-11.0)
[2025-02-04 12:53] LABS: Anion Gap 10.0 (8.0-16.0); Blood Urea Nitrogen 27 mg/dL (8-23); C-Reactive Protein 0.84 mg/dL (0.03-0.80); Calcium 9.2 mg/dL (8.6-10.4); Carbon Dioxide 27 mmol/L (22-30); Chloride 104 mmol/L (96-108); Glucose 96 mg/dL (70-105); Potassium 4.0 mmol/L (3.3-5.1); Sodium 141 mmol/L (133-145)
[2025-02-04] MEDS: PIPERACILLIN SODIUM/TAZOBACTAM 3.375 GM in DEXTROSE 5% IN WATER 50 ML IV ONE (13:13)
[2025-02-04] MEDS: 0.9 % SODIUM CHLORIDE 500 ML ONE (13:13)
[2025-02-04] MEDS: VANCOMYCIN 1,750 MG in 0.9 % SODIUM CHLORIDE 500 ML IV SCH (14:08)
[2025-02-04] MEDS ORDERED: ONDANSETRON 4 MG/2 ML VIAL IV PRN (16:07)
[2025-02-04] MEDS ORDERED: DEXTROSE 50% 50 ML VIAL IV PRN (16:07)
[2025-02-04] MEDS ORDERED: DEXTROSE 31 GM ORAL.SUSP PO PRN (16:07)
[2025-02-04] MEDS ORDERED: IOPAMIDOL 100 ML BOTTLE IV ONE (17:19)
[2025-02-04] MEDS: INSULIN LISPRO 1 UNIT/0.01 ML UNIT SQ SCH (17:39)
[2025-02-04] MEDS: FUROSEMIDE 40 MG/4 ML VIAL IV SCH (17:40)
[2025-02-04] MEDS: PIPERACILLIN SODIUM/TAZOBACTAM 4.5 GM in DEXTROSE 5% IN WATER 100 ML IV SCH (17:40)
[2025-02-04] MEDS: acetaZOLAMIDE SOD 500 MG VIAL IV SCH (17:40)
[2025-02-04] MEDS: BACLOFEN 10 MG TABLET PO SCH (20:04)
[2025-02-04] MEDS: GABAPENTIN 400 MG CAPSULE PO SCH (20:04)
[2025-02-04] MEDS: MAGNESIUM OXIDE 400 MG TABLET PO SCH (20:05)
[2025-02-04] MEDS: morphine 15 MG TAB.SR.12H PO SCH (20:05)
[2025-02-04] MEDS: ENOXAPARIN 40 MG/0.4 ML SYRINGE SQ SCH (20:06)
[2025-02-04] MEDS: SENNOSIDES 1 TABLET PO SCH (20:06)
[2025-02-04] MEDS: ATORVASTATIN 40 MG TABLET PO SCH (20:06)
[2025-02-04] MEDS: 0.9 % SODIUM CHLORIDE 10 ML SYRINGE IV SCH (20:12)
[2025-02-04] MEDS: ACETAMINOPHEN 325 MG TABLET PO PRN (23:03)
[2025-02-05] MEDS: HYDROCORTISONE 10 MG TABLET PO SCH ×2 (05:32→11:41)
[2025-02-05] MEDS: VANCOMYCIN 1,750 MG in 0.9 % SODIUM CHLORIDE 500 ML IV SCH (05:33)
[2025-02-05 06:24] LABS: Basophils # (Auto) 0.03 K/mcL (0.00-0.30); Basophils % (Auto) 0.4 % (0.0-2.0); Eosinophils # (Auto) 0.32 K/mcL (0.00-0.70); Eosinophils % (Auto) 3.9 % (0.0-7.0); Hematocrit 34.1 % (34.1-44.9); Hemoglobin 10.6 g/dL (11.2-15.7); Lymphocytes # (Auto) 1.28 K/mcL (1.50-4.80); Lymphocytes % (Auto) 15.4 % (15.5-49.0); Mean Corpuscular HGB Conc 31.1 g/dL (31.0-36.0); Monocytes # (Auto) 0.56 K/mcL (0.10-0.90); Monocytes % (Auto) 6.7 % (1.0-12.0); Neutrophils % (Auto) 73.5 % (38.0-78.0); Platelet Count 291 K/mcL (140-440); RBC 3.81 M/mcL (3.59-5.38); WBC 8.3 K/mcL (4.5-11.0)
[2025-02-05 06:34] LABS: ALT/SGPT 27 U/L (<40); AST/SGOT 28 U/L (<32); Albumin 3.7 gm/dL (3.2-5.2); Albumin/Globulin Ratio 1.5 (1.0-2.3); Alkaline Phosphatase 90 U/L (39-117); Anion Gap 11.0 (8.0-16.0); Bilirubin,Direct 0.2 mg/dL (<0.3); Bilirubin,Total 0.5 mg/dL (0.1-1.0); Blood Urea Nitrogen 22 mg/dL (8-23); Calcium 9.0 mg/dL (8.6-10.4); Carbon Dioxide 25 mmol/L (22-30); Chloride 104 mmol/L (96-108); Globulin 2.4 gm/dL (2.2-3.7); Glucose 112 mg/dL (70-105); Phosphorous 4.5 mg/dL (2.5-4.5); Potassium 3.5 mmol/L (3.3-5.1); Sodium 140 mmol/L (133-145); Triglycerides 143 mg/dL (<150); Uric Acid 6.0 mg/dL (2.5-8.0)
[2025-02-05 06:45] LABS: Estimated Average Glucose(eAG) 154 mg/dL; Hemoglobin A1C 7.0 % Hgb (4.0-6.0)
[2025-02-05] MEDS: FUROSEMIDE 40 MG/4 ML VIAL IV SCH (08:29)
[2025-02-05] MEDS: TOPIRAMATE 25 MG TABLET PO SCH (08:29)
[2025-02-05] MEDS: POTASSIUM CHLORIDE 20 MEQ TABLET PO ONE (08:30)
[2025-02-05] MEDS: glipiZIDE 5 MG TAB.XL.24H PO SCH (08:30)
[2025-02-05] MEDS ORDERED: LOSARTAN 50 MG TABLET PO SCH (09:00)
[2025-02-05] MEDS: ACETAMINOPHEN 325 MG TABLET PO PRN (11:41)
[2025-02-05] MEDS: LINEZOLID 600 MG TABLET PO SCH (20:44)
[2025-02-06] MEDS: HYDROCORTISONE 10 MG TABLET PO SCH (05:06)
[2025-02-06] MEDS ORDERED: HYDROCORTISONE 10 MG TABLET PO SCH (06:00)
[2025-02-06 07:36] LABS: ALT/SGPT 35 U/L (<40); AST/SGOT 34 U/L (<32); Albumin 4.2 gm/dL (3.2-5.2); Albumin/Globulin Ratio 1.5 (1.0-2.3); Alkaline Phosphatase 103 U/L (39-117); Anion Gap 9.0 (8.0-16.0); Bilirubin,Direct 0.2 mg/dL (<0.3); Bilirubin,Total 0.5 mg/dL (0.1-1.0); Blood Urea Nitrogen 24 mg/dL (8-23); Calcium 9.3 mg/dL (8.6-10.4); Carbon Dioxide 28 mmol/L (22-30); Chloride 104 mmol/L (96-108); Globulin 2.8 gm/dL (2.2-3.7); Glucose 167 mg/dL (70-105); Phosphorous 3.8 mg/dL (2.5-4.5); Potassium 3.6 mmol/L (3.3-5.1); Sodium 141 mmol/L (133-145); Triglycerides 187 mg/dL (<150); Uric Acid 6.1 mg/dL (2.5-8.0)
[2025-02-06 07:42] LABS: Basophils # (Auto) 0.03 K/mcL (0.00-0.30); Basophils % (Auto) 0.5 % (0.0-2.0); Eosinophils # (Auto) 0.35 K/mcL (0.00-0.70); Eosinophils % (Auto) 5.7 % (0.0-7.0); Hematocrit 38.7 % (34.1-44.9); Hemoglobin 11.9 g/dL (11.2-15.7); Lymphocytes # (Auto) 1.38 K/mcL (1.50-4.80); Lymphocytes % (Auto) 22.4 % (15.5-49.0); Mean Corpuscular HGB Conc 30.7 g/dL (31.0-36.0); Monocytes # (Auto) 0.50 K/mcL (0.10-0.90); Monocytes % (Auto) 8.1 % (1.0-12.0); Neutrophils % (Auto) 63.1 % (38.0-78.0); Platelet Count 299 K/mcL (140-440); RBC 4.29 M/mcL (3.59-5.38); WBC 6.2 K/mcL (4.5-11.0)
[2025-02-06] MEDS: FUROSEMIDE 40 MG/4 ML VIAL IV ONE (09:02)
[2025-02-06] MEDS: POTASSIUM CHLORIDE 20 MEQ TABLET PO ONE (09:04)
[2025-02-06] MEDS: acetaZOLAMIDE SOD 500 MG VIAL IV ONE ×2 (09:20)
[2025-02-06 12:36] VITALS: O2SAT 95
[2025-02-06 12:38] VITALS: TEMP 98
== END 2025-02-06 12:04 | disposition home or self-care (01) | DRG 603 ==
LOC: ED 11:04 → MEDSUR 15:57
PROVIDERS: ADMIT Internal Medicine; ATTEND Internal Medicine